=== PATIENT | male | born 1925 | race Caucasian/White ===

== ENCOUNTER → 2016-06-30 | Outpatient (CLI) | payer OTHER | LOC: GIMAGING 11:42 | PROVIDERS: ATTEND Family Medicine | DX: J96.10 Chronic respiratory failure, unspecified whether with hypoxia or hypercapnia (principal); R05 Cough | CPT/HCPCS: 71020-PO ==

== ENCOUNTER 2016-07-03 07:26 | Inpatient (IN) | payer OTHER ==
[2016-07-03] MEDS ORDERED: IPRATROPIUM/ALBUTEROL 3 ML DEYVIAL IH ONE (07:32)
--- NOTE | 2016-07-03 07:35 | EDPHY ---
H & P Time Seen by Provider: 07/03/16 07:28 HPI/ROS: Chief complaint. Shortness of breath HPI. 89-year-old male here by EMS with shortness of breath that has been gradually worsening over the past several days. He has a history of COPD. He was recently diagnosed with pneumonia. He is on erythromycin. He has had worsening shortness of breath. EMS found the patient to have a room air saturation of 82%. He received an albuterol nebulizer treatment and IV Solu- Medrol. He arrives on oxygen and continues to have respiratory difficulty. He has accessary muscle use ROS Constitutional. no fever/chills, no weakness Eyes. no problems with vision ENT. no sore throat, no nasal drainage Cardiovascular. no chest pain Respiratory. Shortness of breath Abdominal. no abdominal pain, no nausea/vomiting, no diarrhea . no problems urinating MS. no calf pain/swelling, no neck/back pain, no joint pain Skin. no rash Lymph. no swollen glands Neuro. no headache, no dizziness, no difficulty walking or with speech Past Medical/Surgical History: COPD, CHF Social History: Single, nonsmoker, no alcohol Smoking Status: Former smoker Physical Exam: General Appearance: Alert well-developed male moderate to severe respiratory distress. Vital signs are stable Eyes: Pupils equal and round no pallor or injection. ENT, Mouth: Mucous membranes are moist. Respiratory: There are retractions. Patient has rales and rhonchi to upper chest on both sides. Cardiovascular: Regular rate and rhythm. Gastrointestinal: Abdomen is soft and nontender, no masses, bowel sounds normal. Neurological: Awake and alert, sensory and motor exams grossly normal. Skin: Warm and dry, no rashes. Musculoskeletal: Neck is supple nontender. Extremities symmetrical, full range of motion. Psychiatric: Patient appears to have somewhat decreased mental status Constitutional: Initial Vital Signs Heart Rate 122 H 07/03/16 07:34 Respiratory Rate 34 H 07/03/16 07:34 O2 Sat (%) 90 L 07/03/16 07:34 O2 Delivery Mode Bi-Pap Allergies/Adverse Reactions: No Known Allergies Allergy (Verified 10/02/15 18:49) Home Medications: Medication Instructions Recorded Furosemide [Lasix 20 MG (*)] 20 mg PO DAILY #30 tab 02/24/16 Albuterol [Proventil Inhaler HFA 1 - 2 puffs IH Q4H PRN 07/03/16 (*)] Azithromycin [Zithromax] 250 mg PO DAILY 07/03/16 Nebivolol HCl [Bystolic] 10 mg PO DAILY 07/03/16 predniSONE 5 mg PO DAILY 07/03/16 Medical Decision Making - Diagnostics EKG Interpretation: EKG interpreted by me shows sinus tachycardia with first-degree AV block right bundle-branch block and left posterior fascicular block. Diffuse ST depression especially in the inferior leads but no significant ST elevation. Rate is 121 Imaging: Chest x-ray shows bilateral pneumonia, congestive heart failure Procedures: IV normal saline, monitor. Respiratory therapy is called and the patient is placed on BiPAP. Patient is given an in-line DuoNeb. ED Course/Re-evaluation: 7:45 a.m. patient's initial lactate is 4.6. Severe sepsis is declared now. The patient presumably has a pulmonary infection as the etiology. Appropriate labs are ordered. The patient is given 1 L of saline but not more fluids as he is somewhat hypertensive and he has a history of CHF 30 second cardiac arrest. Patient bradycardia down. Lost pulses. 30 seconds of CPR with regaining of spontaneous circulation. Patient would like to be intubated and fully resuscitated. Nitroglycerin drip and Lasix IV. Intravenous Levaquin Consultation discussion with Dr. Briones, hospitalist, who agrees to the admission. I have asked Dr. Briones to see this patient AP. Bed request is placed for ICU. Continuing episodes of bradycardia down into the 30s and 40s with poorly perfusing rhythm and then spontaneously returns. Atropine is at bedside. Patient is moved to major resuscitation area. BiPAP is continued. His pulse ox gradually comes up. He had initially been mottled after his cardiac arrest and this gradually clears. Heart rate comes down. Differential Diagnosis: Likely the patient has pneumonia. He does have severe sepsis by blood work. It also appears the patient has congestive heart failure. He had episode of progressive bradycardia to asystole that resolved with about 30 seconds of CPR. He has significant hypoxemia and work of breathing that is improving with the BiPAP Critical Care Time: Critical care time exclusive procedures 50 minutes - Data Points Laboratory Results: Laboratory Results 07/03/16 07:30 07/03/16 07:30 07/03/16 07/03/16 07/03/16 07:40 07:30 07:30 WBC RBC Hgb Hct MCV MCH MCHC RDW Plt Count MPV Neut % (Auto) Lymph % (Auto) [place] % (Auto) Eos % (Auto) Baso % (Auto) Nucleat RBC Rel Count Absolute Neuts (auto) Absolute Lymphs (auto) Absolute Monos (auto) Absolute Eos (auto) Absolute Basos (auto) Absolute Nucleated RBC Immature Gran % Immature Gran # PT 13.0 SEC SEC (12.0-15.0) INR 0.99 (0.83-1.16) APTT 30.2 SEC SEC (23.0-38.0) VBG Lactic Acid 3.8 mmol/L H mmol/L (0.7-2.1) Sodium 145 mEq/L H mEq/L (134-144) Potassium 4.8 mEq/L mEq/L (3.5-5.2) Chloride 106 mEq/L mEq/L (97-110) Carbon Dioxide 26 mEq/l mEq/l (22-31) Anion Gap 13 mEq/L mEq/L (8-16) BUN 43 mg/dL H mg/dL (7-23) Creatinine 1.7 mg/dL H mg/dL (0.7-1.3) Estimated GFR 38 Glucose 176 mg/dL H mg/dL (70-100) Calcium 8.8 mg/dL mg/dL (8.5-10.4) Total Bilirubin 0.8 mg/dL mg/dL (0.1-1.4) Troponin I 0.040 ng/mL H ng/mL (0-0.034) NT-Pro-B Natriuret Pep 4540 pg/mL H pg/mL (0-450) 07/03/16 07/03/16 07:30 07:30 WBC 12.03 10^3/uL H 10^3/uL (3.80-9.50) RBC 5.36 10^6/uL 10^6/uL (4.40-6.38) Hgb 16.0 g/dL g/dL (13.7-17.5) Hct 50.4 % % (40.0-51.0) MCV 94.0 fL fL (81.5-99.8) MCH 29.9 pg pg (27.9-34.1) MCHC 31.7 g/dL L g/dL (32.4-36.7) RDW 15.2 % % (11.5-15.2) Plt Count 235 10^3/uL 10^3/uL (150-400) MPV 10.6 fL fL (8.7-11.7) Neut % (Auto) 31.5 % L % (39.3-74.2) Lymph % (Auto) 55.5 % H % (15.0-45.0) [place] % (Auto) 9.8 % % (4.5-13.0) Eos % (Auto) 1.6 % % (0.6-7.6) Baso % (Auto) 0.3 % % (0.3-1.7) Nucleat RBC Rel Count 0.0 % % (0.0-0.2) Absolute Neuts (auto) 3.78 10^3/uL 10^3/uL (1.70-6.50) Absolute Lymphs (auto) 6.68 10^3/uL H 10^3/uL (1.00-3.00) Absolute Monos (auto) 1.18 10^3/uL H 10^3/uL (0.30-0.80) Absolute Eos (auto) 0.19 10^3/uL 10^3/uL (0.03-0.40) Absolute Basos (auto) 0.04 10^3/uL 10^3/uL (0.02-0.10) Absolute Nucleated RBC 0.00 10^3/uL 10^3/uL (0-0.01) Immature Gran % 1.3 % H % (0.0-1.1) Immature Gran # 0.16 10^3/uL H 10^3/uL (0.00-0.10) PT INR APTT VBG Lactic Acid 4.6 mmol/L H mmol/L (0.7-2.1) Sodium Potassium Chloride Carbon Dioxide Anion Gap BUN Creatinine Estimated GFR Glucose Calcium Total Bilirubin Troponin I NT-Pro-B Natriuret Pep Medications Given: Discontinued Medications Albuterol/Ipratropium (Duoneb) 3 ml IH EDNOW ONE Stop: 07/03/16 07:33 Last Admin: 07/03/16 07:41 Dose: 3 ml Furosemide (Lasix Injection) 20 mg IVP EDNOW ONE Stop: 07/03/16 08:13 Last Admin: 07/03/16 08:15 Dose: 20 mg Sodium Chloride (Ns) 1,000 mls @ 0 mls/hr IV ONCE ONE PRN Reason: Wide Open Stop: 07/03/16 07:47 Last Admin: 07/03/16 07:40 Dose: 1,000 mls Levofloxacin/Dextrose (Levaquin 750 Mg (Premix)) 150 mls @ 100 mls/hr IV EDNOW ONE PRN Reason: Protocol Stop: 07/03/16 09:32 Last Admin: 07/03/16 08:18 Dose: 150 mls Nitroglycerin/Dextrose (Nitroglycerin 200 Mcg/Ml (Premix)) 250 mls @ 0 mls/hr IV CONT ERVIN; Titrate PRN Reason: Protocol Stop: 12/30/16 08:29 Last Admin: 07/03/16 08:00 Dose: 250 mls Sodium Chloride (Ns) 1,000 mls @ 200 mls/hr IV CONT ERVIN Stop: 07/03/16 14:14 Last Admin: 07/03/16 11:03 Dose: 1,000 mls Departure - Departure Disposition: [facility] Inpatient Acute Clinical Impression: Cardiac arrest Pneumonia Qualifiers: Pneumonia type: due to unspecified organism Laterality: bilateral Lung location : lower lobe of lung Qualified Code(s): J18.9 - Pneumonia, unspecified organism Acute respiratory failure Qualifiers: Respiratory failure complication: hypoxia and hypercapnia Qualified Code(s): J96.01 - Acute respiratory failure with hypoxia; J96.02 - Acute respiratory failure with hypercapnia Condition: Fair
--- NOTE | 2016-07-03 07:39 | CPEKG ---
Heart Rate: 121 RR Interval: 496 P-R Interval: 296 QRSD Interval: 158 QT Interval: 400 QTC Interval: 568 P [place]: 0 QRS [place]: 117 T Wave [place]: -24 EKG Severity - ABNORMAL ECG - EKG Impression: SINUS TACHYCARDIA EKG Impression: FIRST DEGREE AV BLOCK EKG Impression: PROMINENT P WAVES, NONDIAGNOSTIC EKG Impression: RBBB AND LPFB EKG Impression: ST DEPRESSION, CONSIDER ISCHEMIA, INF LEADS Electronically Signed By: Tip Ye 03-Jul-2016 15:20:26
[2016-07-03 07:45] LABS: % IMMATURE GRANULYOCYTES 1.3 % (0.0-1.1); ABSOLUTE IMMATURE GRANULOCYTES 0.16 10^3/uL (0.00-0.10); ADD DIFF? NO; ADD MORPH? NO; ADD SCAN? NO; ATYPICAL LYMPHOCYTE FLAG 30 (0-99); FRAGMENT RBC FLAG 0 (0-99); HEMATOCRIT 50.4 % (40.0-51.0); LEFT SHIFT FLG 10 (0-99); LIPEMIA HEMOLYSIS FLAG 80 (0-99); MEAN CELL HEMOGLOBIN 29.9 pg (27.9-34.1); MEAN CELL HEMOGLOBIN CONCENTR. 31.7 g/dL (32.4-36.7); MEAN PLATELET VOLUME 10.6 fL (8.7-11.7); PLATELET CLUMPS FLAG 0 (0-99); PLATELET COUNT 235 10^3/uL (150-400); RED BLOOD CELL COUNT 5.36 10^6/uL (4.40-6.38); RED CELL DISTRIBUTION WIDTH 15.2 % (11.5-15.2)
[2016-07-03] MEDS ORDERED: NS 1,000 ML IV ONE (07:46)
[2016-07-03] MEDS ORDERED: NITROGLYCERIN/D5W 50 MG/250 ML BOTTLE IV ONE (07:57)
[2016-07-03 07:59] LABS: INR 0.99 (0.83-1.16)
[2016-07-03] MEDS ORDERED: ATROPINE SULFATE 1 MG/10 ML SYR ONE ×2 (08:10→19:24)
[2016-07-03] MEDS ORDERED: FUROSEMIDE 20 MG/2 ML VIAL ONE (08:11)
[2016-07-03 08:12] LABS: ANION GAP 13 mEq/L (8-16); BILIRUBIN,TOTAL 0.8 mg/dL (0.1-1.4); CALCIUM 8.8 mg/dL (8.5-10.4); CARBON DIOXIDE 26 mEq/l (22-31); CHLORIDE 106 mEq/L (97-110); CREATININE 1.7 mg/dL (0.7-1.3); GLOMERULAR FILTRATION RATE 38; GLUCOSE 176 mg/dL (70-100); POTASSIUM 4.8 mEq/L (3.5-5.2); SODIUM 145 mEq/L (134-144)
[2016-07-03] MEDS ORDERED: FUROSEMIDE 40 MG/4 ML VIAL IVP ONE (08:12)
[2016-07-03 08:20] LABS: APTT 30.2 SEC (23.0-38.0)
[2016-07-03] MEDS ORDERED: NITROGLYCERIN/DEXTROSE 250 ML IV SCH (08:30)
[2016-07-03 09:11] LABS: BICARBONATE 21 mEq/L (22-26); MEASURED OXYGEN SATURATION 98 % (92-95); PCO2 45 mmHg (34-38); PO2 131 mmHg (65-75); TCO2 22 mEq/L (23-27)
[2016-07-03 09:12] LABS: BIPAP YES; EXP PRESSURE 6; I-TIME 0.6 SECS; INSP PRESSURE 14; O2 CONCENTRATIION 100 % (0-100); P/F RATIO 131 RATIO; PIP 15; PRESSURE SUPPORT 8
[2016-07-03] MEDS ORDERED: HYDROmorphONE/DILAUDID 1 MG/ML SYR IVP PRN (09:12)
[2016-07-03] MEDS ORDERED: ONDANSETRON DISINTEGRATING 4 MG TAB PO PRN (09:12)
[2016-07-03] MEDS ORDERED: ONDANSETRON 4 MG/2 ML VIAL IVP PRN (09:12)
[2016-07-03] MEDS ORDERED: NS 1,000 ML IV SCH ×2 (09:15→15:15)
[2016-07-03] MEDS ORDERED: ALBUTEROL 60 PUFFS/8 GM MDI IH PRN (09:46)
--- NOTE | 2016-07-03 10:37 | GHP ---
[f rep st] HISTORY AND PHYSICAL DATE OF ADMISSION: 07/03/2016 HISTORY OF PRESENT ILLNESS: The patient is an 89-year-old gentleman with a history of COPD, who is steroid and oxygen dependent, as well as asbestosis, who presents with increased work of breathing and shortness of breath, that became acutely worse this morning. It sounds like he has recently been being treated for pneumonia as an outpatient with azithromycin. He denies fever, chills, cough, sputum. It is not clear that he got a flu shot this year. He denies chest pain. He does not have PND, orthopnea or lower extremity edema. In the emergency department, he presented, and initial chest x-ray showed bilateral consolidation superimposed upon known inferior pulmonary fibrosis and asbestosis, with pleural scarring. He actually became bradycardic and asystolic , and CPR was initiated about 15 seconds later and he received less than 30 seconds of CPR with spontaneous return of circulation. When I speak with the patient, he is alert, he is not encephalopathic. He is on bilevel, speaking through it, claiming that he feels better than when he arrived. It does sound like he has not had nausea, vomiting or diarrhea of late. REVIEW OF SYSTEMS: A complete 10-point review of systems conducted and negative except as noted in the HPI. PAST MEDICAL HISTORY: 1. Asbestosis. 2. Steroid and oxygen-dependent COPD. 3. Hypertension. 4. Possible recent pneumonia. 5. History of pleural effusion with cytology negative for malignancy. 6. Known right bundle branch block and left posterior fascicular block. ALLERGIES: No known drug allergies. HOME MEDICATIONS: Azithromycin, Bystolic, Lasix 20 mg, albuterol, prednisone 5 mg daily. SOCIAL HISTORY: He lives alone. He quit smoking remotely. Drinks rare alcohol. No recent falls. FAMILY HISTORY: Parents . CODE STATUS: He is full code. PHYSICAL EXAM: VITAL SIGNS: Presenting vitals: Afebrile at 36.5, blood pressure 193/123, pulse 110, breathing 34 times a minute, 99% on bilevel. Blood pressure now 107/70. In the emergency department he received Lasix and IV fluids, as well as levofloxacin and a nitro drip. GENERAL: In no acute distress. Increased work of breathing. HEENT: Sclerae anicteric. Oropharynx clear. Mucous membranes are dry. NECK: Supple without lymphadenopathy. There is elevated JVD. LUNGS: Rhonchorous bilaterally. HEART: S1, S2 without murmurs. ABDOMEN: Soft, nontender, nondistended. LOWER EXTREMITIES: Without edema. Calves are nontender. SKIN: Without rash. NEUROLOGIC: Grossly nonfocal. Patient is alert. LABS: Sodium 145, potassium 4.8, chloride 106, bicarb 26, BUN 43, creatinine 1.7, I think his baseline is about 1.3. Glucose 176. Troponin 0.040. BNP is 4540, for reference sake, his only previous BNP in January of 2016 is 16,600. He has had an indeterminate troponin before. Venous lactate 4.6 on presentation , and then it was subsequently,thereafter, it was 3.8. His ABG: PH is 7.3, pCO2 is 45, pO2 was 131, bicarb is 22. White count 12.03, hematocrit 50, platelets are 235,000. Coags are normal. Influenza is pending. Chest x-ray, interpreted by vt, shows increased bilateral airspace disease. There is fluid in the fissures, this is superimposed upon pleural disease, and known inferior scarring. The radiology read feels this is most suggestive of viral pneumonitis versus CHF. EKG, interpreted by vt, shows sinus tach at 121, with right bundle branch block and left posterior fascicular block. There is diffuse ST depression in the inferior leads. The left posterior fascicular block and right bundle branch block are not new. I discussed the case with Tip Ye of the emergency department. ASSESSMENT/PLAN: An 89-year-old gentleman with known pulmonary disease, presents with acute hypoxemic respiratory failure of uncertain etiology. 1. Respiratory failure. Patient has chronic respiratory failure and he has superimposed acute hypoxemic respiratory failure. His ABG actually looks pretty good, but he had been on bilevel when that was taken. 2. Despite his elevated BNP and the chest x-ray being read as congestive heart failure, I think the patient is actually clinically dry and we will treat this as pneumonia. I have started him on cefepime and doxycycline. He has received azithromycin as an outpatient, levofloxacin in the emergency department. 3. I do acknowledge his JVD, however, I think the patient has viral pneumonitis versus bacterial pneumonia. He is full code. At this point in time , he is tolerating CPAP well. 4. Cardiac. The patient has as an indeterminate troponin. I have ordered an echocardiogram. His EKG is difficult to interpret, but I have ordered a repeat EKG. We will trend his troponins, and if this echo has new findings, we will have Cardiology see him. I suspect his elevated troponin is due to strain.. 5. Acute kidney injury. This is consistent with being prerenal. We will resuscitate and follow. 6. Steroid use. The patient takes 5 mg daily. He is at risk for adrenal insufficiency. He is currently not hypotensive. I will give him Solu-Medrol 60 q.6. 7. Drop in blood pressure. This corresponds to a nitroglycerin drip, which I will discontinue. 8. Prophylaxis. Pharmacologic prophylaxis indicated, subcu heparin t.i.d. 9. Asbestosis, we will follow. 10. Code status: Full. 11. Disposition: Inpatient ICU. /[id number]/MODL MTDD
[2016-07-03] MEDS: CEFEPIME HCL 1 GM in D5W 50 ML IV SCH ×2 (11:03→22:03)
[2016-07-03] MEDS: methylPREDNISolone SOD SUCC 125 MG/2 ML VIAL IVP SCH ×3 (11:32→23:55)
--- NOTE | 2016-07-03 12:30 | CPEKG ---
Heart Rate: 71 RR Interval: 845 P-R Interval: 156 QRSD Interval: 146 QT Interval: 444 QTC Interval: 483 P [place]: 51 QRS [place]: 111 T Wave [place]: 238 EKG Severity - ABNORMAL ECG - EKG Impression: SINUS ARRHYTHMIA, RATE 60-85 EKG Impression: PROBABLE LEFT ATRIAL ABNORMALITY EKG Impression: NONSPECIFIC INTRAVENTRICULAR CONDUCTION DELAY EKG Impression: BORDERLINE INFERIOR Q WAVES EKG Impression: ABNRM R PROG, CONSIDER ASMI OR LEAD PLACEMENT EKG Impression: BORDERLINE ST DEPRESSION, DIFFUSE LEADS EKG Impression: COMPARED WITH PRIOR TRACING, HR SLOWER Electronically Signed By: Yessica Kirk 03-Jul-2016 20:09:24
--- NOTE | 2016-07-03 12:38 | ECHO ---
[id number] + + [address] : : [place] [address] : : [phone] + + Adult Echocardiographic Report + -+ :Name: MEGHANA LOPEZ VStudy Date: 07/03/2016 10:55 AM : : Hospital Admission Number: [id number] : :: 1925 Gender: Male Height: 70 in : :Age: 89 yrs Race: WH Weight: 150 lb : :Reason For Study: Asystole, now back in sinus. CHF : : BSA: 1.8 meters 2: :History: SCHMITZ : + -+ MMode/2D Measurements \T\ Calculations IVSd: 1.3 cm LVIDd: 4.6 cm FS: 30.0 % LVOT diam: 2.0 cm LVPWd: 1.2 cm LVIDs: 3.2 cm EDV(Teich): LVOT area: 99.0 ml 3.3 cm2 ESV(Teich): 42.4 ml EF(Teich): 57.2 % LVLd ap4: 6.9 cm SV(MOD-sp4): EDV(MOD-sp4): 45.0 ml 82.0 ml LVLs ap4: 6.2 cm ESV(MOD-sp4): 37.0 ml EF(MOD-sp4): 54.9 % Normal Measurement Values: + + :LVIDd (3.5-5.7cm) IVSd (0.6-1.1cm) LVPWd (0.6-1.1cm) Aortic Root (2.0-3.7cm)Left Atrium (1.5-4.0cm): :LV Vol(d) (76-115ml) LV Vol(s) (29-48ml) Ejec Fraction (50-65%)PV Jose Angel (0.6- 1.2m/s) TV Jose Angel (0.4-1.0m/s) : :MV E Jose Angel (0.8-1.0m/s)MV A Jose Angel (0.3-1.0m/s)LVOT Jose Angel (0.7-1.2m/s) Asc Ao Jose Angel ( 0.9-1.8m/s) : + + Doppler Measurements \T\ Calculations MV E max jose angel: Ao V2 max: LV V1 max: SV(LVOT): 52.3 cm/sec 86.0 cm/sec 69.6 cm/sec 47.2 ml MV A max jose angel: Ao max P.0 mmHg LV V1 max P.0 cm/sec Ao mean P.9 mmHg MV E/A: 0.46 1.8 mmHg LV V1 mean PG: MV dec time: 0.24 sec Ao V2 mean: 1.1 mmHg 64.6 cm/sec LV V1 mean: Ao V2 VTI: 18.0 cm 48.2 cm/sec HARRIS(I,D): 2.6 cm2 LV V1 VTI: 14.4 cm HARRIS(V,D): 2.6 cm2 PA V2 max: 62.8 cm/secRAP systole: PA max P.6 mmHg 10.0 mmHg Left Ventricle The left ventricle is normal in size. There is mild concentric left ventricular hypertrophy. Ejection Fraction = 50-55%. There is Doppler evidence for diastolic dysfunction. Possible apical hypokinesis. Septal motion is consistent with conduction abnormality. There is apical hypokinesis. + ---------+ : : :I WMSI = 1.25 % Normal = 75 : + + + ---------+ :+ +:+ ++ +: : :: ::: :: :: : :: ::: :: :: : :: ::: :: :: : :: ::: :: :: : :: ::: :: :: : :: ::: :: :: : :: ::+ ++ +: : :: ::+ ++ +: : :: ::: :: :: : :: ::: :: :: : :: ::: :: :: : :: ::: :: :: : :: ::: :: :: : :: ::: :: :: : :+ +:+ ++ +: : + + ---------+ : : : : : Segments Size : : :+--------+ --------+: :X - Cannot 0 - 1 - Normal (2) - Mildly 2 - ::1-2 : small :: :Interpret Hyperkinetic Hypokinetic Hypokinetic :+--------+ --------+: : 4 - 5 - 6 - Akinetic 7 - ::3-5 : moderate:: :3 - Akinetic Dyskinetic Aneurysmal w/scar Dyskinetic :+--------+ --------+: : w/scar ::6-14 : large :: : :+--------+ --------+: : ::15-16 : diffuse :: : :+--------+ --------+: + + ---------+ Right Ventricle The right ventricle is normal in size and function. TAPSE norrmal: 2.5. Atria The left atrial size is normal. Right atrial size is normal. The interatrial septum is intact with no evidence for an atrial septal defect. Mitral Valve The mitral valve is normal in structure and function. There is no mitral valve stenosis. There is trace mitral regurgitation. Tricuspid Valve The tricuspid valve is normal in structure and function. There is no tricuspid stenosis. No tricuspid regurgitation. Right ventricular systolic pressure is normal. Aortic Valve The aortic valve is not well visualized. There is no aortic stenosis. There is no aortic insufficiency. Pulmonic Valve The pulmonic valve is not well visualized. Great Vessels The aortic root is normal size. Pericardium/Pleural There is no pericardial effusion. There is no pleural effusion. Conclusion A complete two-dimensional transthoracic echocardiogram was performed (2D, M-mode, Doppler and color flow Doppler). The study was technically difficult. Limited parasternal windows. The left ventricle is normal in size. Ejection Fraction = 50-55%. Possible apical anterior hypokinesis There is trace mitral regurgitation. Right ventricular systolic pressure is normal. The aortic valve is not well visualized. There is mild concentric left ventricular hypertrophy. There is Doppler evidence for diastolic dysfunction. There is no pleural effusion. There is apical hypokinesis. Final Reading Physician: Neto Rojas electronically signed on 07/03/2016 12:37 PM Ordering Physician: Abdias Briones Performed By: Zulema Lopes
[2016-07-03 13:17] LABS: COLOR YELLOW; LEUKOCYTE ESTERASE,URINE NEGATIVE (NEGATIVE); NITRITE,URINE NEGATIVE (NEGATIVE)
[2016-07-03 13:27] LABS: MUCUS TRACE /lpf (NONE-1+)
[2016-07-03] MEDS ORDERED: HEPARIN 5,000 UNIT/0.5 ML SYR SC SCH (14:00)
[2016-07-03 14:41] LABS: ANION GAP 12 mEq/L (8-16); CALCIUM 8.2 mg/dL (8.5-10.4); CARBON DIOXIDE 25 mEq/l (22-31); CHLORIDE 108 mEq/L (97-110); CREATININE 1.8 mg/dL (0.7-1.3); GLOMERULAR FILTRATION RATE 36; GLUCOSE 122 mg/dL (70-100); POTASSIUM 4.7 mEq/L (3.5-5.2); SODIUM 145 mEq/L (134-144)
[2016-07-03] MEDS ORDERED: NS 500 ML IV ONE (16:30)
[2016-07-03] MEDS ORDERED: NITROGLYCERIN 0.4 MG BTL SL PRN (17:20)
[2016-07-03] MEDS ORDERED: TEMAZEPAM 15 MG CAP PO PRN (17:20)
--- NOTE | 2016-07-03 17:58 | GCON ---
[f rep st] CONSULTATION PULMONARY CONSULTATION DATE OF CONSULTATION: 07/03/2016 REASON FOR CONSULTATION: Acute respiratory failure in a patient with underlying asbestosis and COPD . HISTORY: The patient is an 89-year-old gentleman with a known history of asbestosis and COPD. 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 He also worked briefly at [employer], but was not exposed to asbestos there. He was la st in the hospital in January of 2016. He was seen in consultation by Dr. Lovell, who has known him previously from the hospital. He had congestive heart failure at that time, and required a large-v olume thoracentesis on the right. Following discharge, he did well, and felt better than he has had for some time. He is readmitted now with increasing shortness of breath over the last 5 days. This has been associ ated with increased cough and pulmonary congestion. He has been able to bring up some mucus. He wa s seen by his primary care physician several days ago, and placed on azithromycin. He initially did somewhat better, but then subsequently worsened. He called 911 today secondary to the sensation of severe shortness of breath. Saturations were 82%. He does use oxygen continually at 4 L. In the emergency department, he became bradycardic, and had a brief cardiac arrest, apparently requiring ca rdiac compressions. He was given fluids, nitroglycerin, Lasix, and intravenous Levaquin, and transf erred to the intensive care unit. He was also given antibiotics for probable pneumonia. Chest x-ra y does show worsening, with increased bilateral patchy pulmonary infiltrates consistent with a possi ble diffuse pneumonia versus congestive heart failure/pulmonary edema or both. In the ICU, he states he feels better, his breathing is better. He denies any chest pain currently. He does have persistent congestion. 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 He also has a component of COPD secondary to previous tobacco use. 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 He generally uses this at 4 L, more with exertional activities. Based on his p revious hospitalization, he is felt to have congestive heart failure. He has presumed coronary derek ry disease, based on apical akinesis by echo, and coronary artery calcification by previous CT scan of the chest. PAST MEDICAL HISTORY: Remarkable for asbestosis, COPD, systemic hypertension, presumed congestive h eart failure/coronary artery disease, and a history of gout. MEDICATIONS: On admission included prednisone at 5 mg, albuterol, furosemide, azithromycin, and Bys tolic. He has previously been on Flovent and Flonase. DRUG ALLERGIES: None known. SOCIAL HISTORY: The patient lives independently. He drives, takes care of himself. He has a son a nd a daughter, who live in this area. He has a nurse, who comes in every other week. He smoked cig arettes in the past, starting in the [employer]. Significant alcohol is denied. FAMILY HISTORY: Noncontributory. REVIEW OF SYSTEMS: Negative, except as mentioned above. He denies current chest pain, history of k nown heart disease, GI problems, kidney problems, thromboembolic disease, etc. PHYSICAL EXAMINATION: GENERAL: Reveals an elderly gentleman who is sitting in bed. VITAL SIGNS: An OxyMask is in place at 6 L. Saturations are 93%. He is afebrile. Respiratory rate is 24. Bloo d pressure is 147/71. Heart rate is 76, with sinus rhythm on the monitor. HEENT: Unremarkable for lymphadenopathy or thyromegaly. Mucous membranes are somewhat dry. There is no jugular venous dis tention. PULMONARY: The chest reveals decreased breath sounds bilaterally, especially at the right base. There is some dullness at the right base. There is some scattered rales elsewhere, and cent ral bronchial congestion, with some expiratory wheezes and mild rhonchi with cough. HEART: Regular in rate and rhythm. There is a systolic murmur. No gallop can be appreciated. ABDOMEN: Soft, no ntender. Bowel sounds are present. EXTREMITIES: Unremarkable for significant edema. There are no cords, no tenderness. NEUROLOGIC: Examination is nonfocal/intact. LABORATORY DATA: Chest x-ray shows chronic changes, hyperinflation, as well as increased infiltrate s bilaterally, which are indeterminate in their etiology. Query acute congestive heart failure vers us an infectious process/diffuse pneumonia. Cardiac echo done today appears to be unchanged from previous echos. Ejection fraction remains at a pproximately 50%, with some diastolic dysfunction. There are no significant valvular abnormalities. Right ventricular systolic pressures are normal. White blood cell count is 12,000, hematocrit 50, platelets 235,000. PT and PTT were normal on admis roly. Arterial blood gas possibly post arrest showed a pH of 7.30, pCO2 45, and PO2 131. He was on BiPAP at that time. Sodium is 145, potassium 4.7, BUN 45, with a creatinine of 1.8. Baseline crea tinine is 1.3. Troponins have bumped significantly, from 0.04 on admission to 34 now. Urinalysis i s unremarkable. Influenza A, B by PCR is negative. ASSESSMENT: 1. Chronic obstructive pulmonary disease with exacerbation, secondary to bronchopneumonia. 2. Bronchopneumonia. His pulmonary infiltrates are difficult to sort out. However, they may be re lated to pneumonia. He does have a clear bronchitis, which has been increasing in symptomatology ov er the last five days. He is on appropriate antibiotics. Nebulized treatments will be continued. He has been started on steroids. These will also be continued for now. 3. History congestive heart failure. This was associated with pleural effusions. He was sent home on Lasix after his last admission. He does appear to have coronary artery disease, but has never h ad a catheterization. At the present time, troponins are significantly elevated, and he had a brief cardiac arrest in the emergency department. His elevated troponins may be secondary to his CPR. C ardiology consultation has been requested. 4. Acute renal failure. He has had elevated BUN and creatinine in the past to as high as 1.7. He is slightly higher today. BUN and creatinine will be followed. There are no indications for Renal consultation or hemodialysis. 5. History of fibrotic lung disease associated with asbestosis. 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 Spirometry has shown significant restrictio n, as well as obstructive disease in the past. However, lung volumes have looked fairly normal. DL CO was reduced. 6. Status post arrest in the emergency room, with brief cardiopulmonary resuscitation. This was ap parently secondary to a bradycardic event. Etiology is unclear. 7. Advanced directives. He is full cor, per his wishes. PLAN: The patient will be kept in the intensive care unit. Bronchodilator therapy and steroids vidal l be continued. Antibiotics will be continued. Cardiac status will be followed, and serial troponi ns obtained. Cardiology consultation has been requested, and he will be seen by Cardiology today. Oxygen will be continued. Lasix will be held for now, as he is clinically euvolemic. His usual out patient medications will be continued. Further plans and recommendations will be made based on his progress over the next 12-24 hours. Car diac catheterization may be required; however, I will leave this up to Cardiology. /[id number]/MODL
[2016-07-03] MEDS ORDERED: LIDOCAINE 1% 30 ML SDV ONE (18:16)
[2016-07-03] MEDS ORDERED: fentaNYL 100 MCG/2 ML INJ ONE (18:16)
[2016-07-03] MEDS ORDERED: MIDAZOLAM 2 MG/2 ML VIAL ONE (18:17)
[2016-07-03] MEDS ORDERED: IOPAMIDOL (ISOVUE-300) 100 ML BTL IV ONE (18:21)
[2016-07-03] MEDS ORDERED: BIVALIRUDIN 250 MG/5 ML VIAL IV ONE (19:03)
[2016-07-03] MEDS ORDERED: CLOPIDOGREL BISULFATE 75 MG TAB ONE (20:23)
[2016-07-03] MEDS ORDERED: ATROPINE SULFATE 1 MG/10 ML SYR IVP PRN (20:30)
[2016-07-03] MEDS ORDERED: CLOPIDOGREL BISULFATE 75 MG TAB PO ONE (20:30)
[2016-07-03] MEDS: IPRATROPIUM/ALBUTEROL 3 ML DEYVIAL IH SCH (21:11)
[2016-07-03] MEDS ORDERED: amLODIPine BESYLATE 5 MG TAB PO ONE (21:30)
--- NOTE | 2016-07-03 21:58 | CPIP ---
[f rep st] INVASIVE CARDIAC PROCEDURE DATE OF PROCEDURE: 07/03/2016 PROCEDURE PERFORMED: 1. Selective coronary angiography. 2. Left heart catheterization. 3. Percutaneous transluminal coronary angioplasty and stent placement of a total occlusion of the r ight coronary artery with a proximal to mid 2.5 x 38 Synergy drug-eluting stent and a distal 3.0 x 1 6 Synergy drug-eluting stent. Overlapping with those 2 stents was a 3.0 x 24 Synergy drug-eluting s tent. Then in the proximal and ostial right coronary artery, we cuffed of the right coronary for an edge dissection with a 3.0 x 28 Synergy stent, with excellent and CRISTIANE-3 flow from a status of CRISTIANE -0 flow at the beginning of the case. INDICATIONS/APPROPRIATE USE CRITERIA: The patient has a subendocardial myocardial infarction with r ising troponin from a level of 9 to in the 30s and then 61. On serial measurements throughout the d ay, there was also an asystolic arrest earlier with severe and symptomatic bradycardia, with hypoten roly documented with a pulseless arrest earlier in the emergency department today. The patient has CCS class 4 symptoms of angina, as well as [place] Heart Association class 4 symptoms of heart fail ure. The patient is not a candidate for surgery given his age and severe asbestosis-related lung di sease. PROCEDURE IN DETAIL: After informed consent was obtained and the n.p.o. status was confirmed, the xenia vega was taken to the cardiac catheterization laboratory. The region of the right groin was clean ed, prepped, and draped in a sterile fashion. A micropuncture set was used to gain access to the [facility] common femoral artery. There was difficulty in advancing a standard J-wire and therefore, a J G lidewire was used to navigate the severely diseased junction with the right common iliac and right e xternal iliac. Also evidence of severe and complex atheroma involving the origin of the right inter nal iliac as well. Standard wire exchange technique was utilized for all catheter exchanges. The xenia vega underwent the previously mentioned diagnostic procedure with use of JL4 and Alphacurve hull ry catheters, as well as with a 6-Armenian JR4 guiding catheter. The left main coronary lumen was chapito roximately 7 mm in size and has an ostial 70% stenosis which is a napkin ring, concentric lesion pro ximal to the LAD and circumflex bifurcation. The circumflex vessel was a 3.0 vessel with CIRSTIANE-3 jennifer w and a 60% lesion after the first obtuse marginal. This could be a flow-limiting obstruction in th e circumflex proper if appropriately IVUS'd. The LAD has a napkin ring stenosis shortly after its takeoff from the left main, which is estimated to be 85% to 90%. The LAD thereafter has an eccentric and calcified lesion which is 70% to 80% sten osed. The distal LAD wraps around the apex moderately, without other flow-limiting obstruction, dis section, or thrombus. There is evidence of [id number] collaterals to the distal PDA and PLV branches of the right coron yoana artery. The right coronary artery is occluded after the first RV branch with CRISTIANE-0 flow. We turned our att ention to the right coronary artery. The distal occlusion appeared to be a fresh thrombus. We were able to cross the chronic total occlusion as well as the fresh thrombus with the use of ultimately a De Icer Element Winder 150 wire. Balloon angioplasty was then performed with a 1.2 x 15 Emerge balloon. Multiple balloon inflations were performed in order to achieve some antegrade flow. We used a series of larg er balloons to open the vessel and then exchanged out for a wiggle wire. I was able to manipulate a 2.5 x 38 Synergy stent in the proximal and mid RCA, and then deployed that at high pressure of 16 a tmospheres. Balloon angioplasty was used distally which resulted in a distal dissection of the bloo d vessel near the chronic total occlusion and the fresh thrombus, which was treated with a 3.0 x 16 Synergy stent. Then in an overlapping fashion, a 30 x 24 Synergy stent was placed inside the 2.5 x 38 and 3.0 x 16 stents covering that intervening segment. The Smish system was used to post-dilate th e stents. There was evidence of edge dissection from the GuideLiner which was used to get this equi pment into the coronary, and this was ultimately stented with a 3.0 x 28 stent in the ostial RCA and into the distal RCA. The ultimate result of the 4 stents placed in the RCA was that there was CRISTIANE -3 flow into the distal PDA and PLV branches with 5% residual stenosis, status post PTCA and stent p lacement of those 100% lesions. The patient then underwent left heart catheterization with the use of JR4 guiding catheter. Documented LVEDP of 19. There was no evidence of a gradient upon pullback across aortic valve. We did not perform an LV-gram to reduce contrast load. The patient did recei ve a substantial contrast load in order to treat his subendocardial myocardial infarction. The jose cruz ent returned to the ICU in critical and stable condition after a successful Angio-Seal arteriotomy r epair and deployment. Copy requested to: Kashmir Zhong In, /[id number]/MODL
[2016-07-03] MEDS: DOXYCYCLINE INJ 100 MG in NS 250 ML IV SCH (22:03)
[2016-07-03] MEDS: ENOXAPARIN 60 MG/0.6 ML SYR SC SCH (22:03)
[2016-07-04] MEDS: ACETAMINOPHEN 325 MG TAB PO PRN ×2 (01:12→23:01)
[2016-07-04] MEDS ORDERED: FUROSEMIDE 40 MG/4 ML VIAL IVP ONE ×2 (01:36→13:09)
[2016-07-04] MEDS ORDERED: FUROSEMIDE 40 MG/4 ML VIAL ONE (01:53)
[2016-07-04] MEDS: IPRATROPIUM/ALBUTEROL 3 ML DEYVIAL IH SCH ×4 (05:38→21:47)
[2016-07-04 05:58] LABS: % IMMATURE GRANULYOCYTES 2.7 % (0.0-1.1); ABSOLUTE IMMATURE GRANULOCYTES 0.15 10^3/uL (0.00-0.10); ADD DIFF? NO; ADD MORPH? NO; ADD SCAN? NO; ATYPICAL LYMPHOCYTE FLAG 50 (0-99); FRAGMENT RBC FLAG 0 (0-99); HEMATOCRIT 38.8 % (40.0-51.0); HEMOGLOBIN 12.6 g/dL (13.7-17.5); LEFT SHIFT FLG 30 (0-99); LIPEMIA HEMOLYSIS FLAG 80 (0-99); MEAN CELL HEMOGLOBIN 29.1 pg (27.9-34.1); MEAN CELL HEMOGLOBIN CONCENTR. 32.5 g/dL (32.4-36.7); MEAN CELL VOLUME 89.6 fL (81.5-99.8); MEAN PLATELET VOLUME 10.1 fL (8.7-11.7); PLATELET CLUMPS FLAG 0 (0-99); PLATELET COUNT 158 10^3/uL (150-400); RED BLOOD CELL COUNT 4.33 10^6/uL (4.40-6.38); RED CELL DISTRIBUTION WIDTH 14.9 % (11.5-15.2)
[2016-07-04] MEDS ORDERED: ASPIRIN EC 325 MG TAB PO ONE (06:00)
[2016-07-04] MEDS ORDERED: diphenhydrAMINE 25 MG CAP PO ONE (06:00)
[2016-07-04] MEDS ORDERED: DIAZEPAM 5 MG TAB PO ONE (06:00)
[2016-07-04] MEDS ORDERED: NS 1,000 ML IV ONE (06:00)
[2016-07-04 06:09] LABS: ANION GAP 10 mEq/L (8-16); ASPARTATE AMINOTRANSFERASE 199 IU/L (17-59); BILIRUBIN,TOTAL 0.6 mg/dL (0.1-1.4); CALCIUM 7.7 mg/dL (8.5-10.4); CARBON DIOXIDE 20 mEq/l (22-31); CHLORIDE 112 mEq/L (97-110); CHOLESTEROL 161 mg/dL (140-220); CHOLESTEROL/HDL RATIO 3.58 RATIO (1.00-4.97); CREATININE 1.5 mg/dL (0.7-1.3); GLOMERULAR FILTRATION RATE 44; GLUCOSE 137 mg/dL (70-100); HIGH DENSITY LIPOPROTEIN 45 mg/dL (40-65); LACTATE DEHYDROGENASE 1335 IU/L (313-618); LDL/HDL RATIO 2.09 RATIO (1.00-3.64); LOW DENSITY LIPOPROTEIN 94 mg/dL (80-100); MAGNESIUM 1.8 mg/dL (1.6-2.3); NON-HIGH DENSITY LIPOPROTEIN 116 mg/dL (90-129); POTASSIUM 4.6 mEq/L (3.5-5.2); SODIUM 142 mEq/L (134-144); TRIGLYCERIDE 113 mg/dL (40-150); VERY LOW DENSITY LIPOPROTEINS 22 mg/dL (8-25)
[2016-07-04 06:11] LABS: INR 1.24 (0.83-1.16); PROTIME(PATIENT) 15.6 SEC (12.0-15.0)
[2016-07-04 06:12] LABS: APTT 64.6 SEC (23.0-38.0)
[2016-07-04] MEDS: methylPREDNISolone SOD SUCC 125 MG/2 ML VIAL IVP SCH (06:27)
[2016-07-04] MEDS: DOXYCYCLINE INJ 100 MG in NS 250 ML IV SCH (08:13)
[2016-07-04] MEDS: ENOXAPARIN 60 MG/0.6 ML SYR SC SCH ×2 (08:13→23:01)
[2016-07-04] MEDS: CLOPIDOGREL BISULFATE 75 MG TAB PO SCH (08:13)
[2016-07-04] MEDS: CEFEPIME HCL 1 GM in D5W 50 ML IV SCH (08:13)
[2016-07-04] MEDS: predniSONE 5 MG TAB PO SCH (08:13)
[2016-07-04] MEDS: NEBIVOLOL HCL 5 MG TAB PO SCH (08:13)
--- NOTE | 2016-07-04 08:50 | CPEKG ---
Heart Rate: 81 RR Interval: 741 P-R Interval: 172 QRSD Interval: 142 QT Interval: 444 QTC Interval: 516 P [place]: 56 QRS [place]: 97 T Wave [place]: 252 EKG Severity - ABNORMAL ECG - EKG Impression: SINUS RHYTHM EKG Impression: PROBABLE LEFT ATRIAL ABNORMALITY EKG Impression: RBBB AND LPFB EKG Impression: ST DEPRESSION, CONSIDER ISCHEMIA, ANT-LAT LDS Electronically Signed By: Konstantin Barrow 05-Jul-2016 16:26:41
[2016-07-04] MEDS ORDERED: NON-FORMULARY NEW DRUG (Nebivolol Hcl [Bystolic] 10 MG) PO SCH (09:00)
--- NOTE | 2016-07-04 09:15 | HOSPPROG ---
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 initial trop indfet but fly rapidly and cath revealed sig CAD w totally occluded rca CV: s/p cath w trop tredning down ekg w new deep twi that arent really in RCA territory on asa, plavix, bb received some lasix overnight likely NSTEMI ?HCAP: I feel primary cardiac event more likely dc abx and steroids (continue baseline pred) chf: intact LVEF on yest AM echo will repeat in AM 07/05 this is likely acute diastolic failure proph: lmwh ? VTE: neg ultrasounds presentation explained by cardiac event code: full asbestosis: continue pred dispo: inpt Subjective: tele: no VT (interp by me). case discussed at length w dr chapman. ekg w new anterolat TWI (interp by me) Objective: Vital Signs Temp Pulse Resp BP Pulse Ox 36.7 C 73 16 120/47 L 99 07/04/16 04:00 07/04/16 08:00 07/04/16 08:00 07/04/16 08:00 07/04/16 08:00 Laboratory Results 07/04/16 05:24 07/04/16 05:24 07/03/16 07/04/16 07/05/16 05:59 05:59 05:59 Intake Total 3724 Output Total 2195 Balance 1529 PT 15.6 SEC (12.0-15.0) H 07/04/16 05:24 INR 1.24 (0.83-1.16) H 07/04/16 05:24 - Physical Exam Constitutional: no apparent distress, appears nourished, other (more alert than yesterday) Eyes: PERRL, anicteric sclera Ears, Nose, Mouth, Throat: moist mucous membranes, hearing normal Cardiovascular: regular rate and rhythym, no murmur, rub, or gallop, No systolic murmur Respiratory: no respiratory distress, no rales or rhonchi, other (very abnormal lung axam w crackles at inferior base o lungs b/l) Gastrointestinal: normoactive bowel sounds, soft, non-tender abdomen Genitourinary: No sarabia in urethra Skin: warm, normal color Musculoskeletal: full muscle strength, no muscle tenderness Neurologic: AAOx3 ICD10 Worksheet Patient Problems: Problems Problem Status Onset Acute respiratory failure Acute Cardiac arrest Acute Pneumonia Acute COPD (chronic obstructive pulmonary disease) Acute Chronic Disease Mgmt/Transitional Care Acute Hypoxemia Acute Shortness of breath Acute
--- NOTE | 2016-07-04 15:13 | SOAPPROG ---
SOAP Progress Note Assessment/Plan: Assessment: 1. Acute myocardial infarction 2. Status post PTCI: Right coronary artery x4 stents. 3. Severe coronary artery disease 4. Dyslipidemia 5. Asbestosis 6 acute renal failure 7 diastolic dysfunction 8. COPD 9. Smoking history 10. Bronchopneumonia 11. asbestosis He has had an acute myocardial infarction he has had his right coronary stented he had an asystolic event requiring cardiopulmonary resuscitation in the emergency room. At this point time he is not having Ant arrhythmias. He is not having any chest pain. He is currently improving slowly. Has diffuse severe left and right-sided coronary artery disease and the left- sided coronary disease has not been addressed at this point time. The members of the interventional service are considering when or if they would recommend further intervention on the left side. We are waiting for their decision on this. The patient is clinically very stable right now. He is moving from the ICU to the telemetry floor. He is not having congestive heart failure today. He is not fluid overloaded today. He is not having ischemia today. He is having no arrhythmias. He has severe advanced pulmonary disease from on many factors and that is being managed by the Pulmonary service very well. The patient has severe dyslipidemia and will be getting a statin as well as ongoing antiplatelet medications. I have talked to he and his family about code status and he would like to not be resuscitated. We went over this extensively for more than 20 minutes on multiple occasions and all their questions have been answered. At this point time we will make him a no code. The daughter and the son and patient all agree with this. There is another stated sibling coming to visit. If they have any issues with this they will get back to me. Also I have talked him about where he has good replaced after leaving the hospital and I strongly recommend that he not go home alone in to [facility] which is what he would like to do I think he needs some time in a rehab stay institution to see how he is doing and to see how his strength is coming back and make sure he is not going to fall or have more complications. He is on ongoing oxygen therapy and the remainder the pulmonary issues are being addressed by Pulmonary as mentioned above. His prognosis is certainly guarded. We will watch him closely. All his questions have been answered I have discussed this case with the curer acid drum and with the nursing staff. Plan: 03/13/17 15:06 Subjective: He has no chest pain today. He has no fevers or chills. He has no syncope or near syncope. He feels weak and tired. He is not short of breath. He has no nausea vomiting He is taking his medication He is not bleeding. His groin and is legs do not bother him at all. Objective: Vital Signs Temp Pulse Resp BP Pulse Ox 36.8 C 76 25 H 170/79 H 97 07/04/16 12:00 07/04/16 12:00 07/04/16 12:00 07/04/16 12:00 07/04/16 12:00 Laboratory Results 07/04/16 05:24 07/04/16 05:24 07/03/16 07/04/16 07/05/16 05:59 05:59 05:59 Intake Total 3724 Output Total 2195 1000 Balance 1529 -1000 PT 15.6 SEC (12.0-15.0) H 07/04/16 05:24 INR 1.24 (0.83-1.16) H 07/04/16 05:24 Physical Exam - Physical Exam General Appearance: alert, no apparent distress Respiratory: crackles, rhonchi, prolonged expiration Cardiac/Chest: regular rate, rhythm, systolic murmur Abdomen: normal bowel sounds, non-tender, No organomegaly Back: No CVA tenderness Skin: warm/dry Extremities: No pedal edema, No calf tenderness (Do all) Neuro/Psych: alert ICD10 Worksheet Patient Problems: Problems Problem Status Onset Acute respiratory failure Acute Cardiac arrest Acute Pneumonia Acute COPD (chronic obstructive pulmonary disease) Acute Chronic Disease Mgmt/Transitional Care Acute Hypoxemia Acute Shortness of breath Acute
[2016-07-04] MEDS: ISOSORBIDE DINITRATE 10 MG TAB PO SCH (16:06)
[2016-07-04] MEDS ORDERED: TEMAZEPAM 15 MG CAP PO ONE (23:00)
[2016-07-05 04:27] LABS: % IMMATURE GRANULYOCYTES 2.8 % (0.0-1.1); ABSOLUTE IMMATURE GRANULOCYTES 0.29 10^3/uL (0.00-0.10); ADD DIFF? NO; ADD MORPH? NO; ADD SCAN? NO; ATYPICAL LYMPHOCYTE FLAG 30 (0-99); FRAGMENT RBC FLAG 0 (0-99); HEMATOCRIT 33.9 % (40.0-51.0); HEMOGLOBIN 11.2 g/dL (13.7-17.5); LEFT SHIFT FLG 20 (0-99); LIPEMIA HEMOLYSIS FLAG 80 (0-99); MEAN CELL HEMOGLOBIN 28.6 pg (27.9-34.1); MEAN CELL VOLUME 86.7 fL (81.5-99.8); MEAN PLATELET VOLUME 10.3 fL (8.7-11.7); PLATELET CLUMPS FLAG 0 (0-99); PLATELET COUNT 189 10^3/uL (150-400); RED BLOOD CELL COUNT 3.91 10^6/uL (4.40-6.38); RED CELL DISTRIBUTION WIDTH 15.1 % (11.5-15.2)
[2016-07-05 04:41] LABS: ANION GAP 10 mEq/L (8-16); CALCIUM 8.4 mg/dL (8.5-10.4); CARBON DIOXIDE 22 mEq/l (22-31); CHLORIDE 111 mEq/L (97-110); CREATININE 1.8 mg/dL (0.7-1.3); GLOMERULAR FILTRATION RATE 36; GLUCOSE 118 mg/dL (70-100); POTASSIUM 4.2 mEq/L (3.5-5.2); SODIUM 143 mEq/L (134-144)
[2016-07-05] MEDS: IPRATROPIUM/ALBUTEROL 3 ML DEYVIAL IH SCH ×4 (06:02→21:02)
[2016-07-05] MEDS: ISOSORBIDE DINITRATE 10 MG TAB PO SCH ×3 (08:23→16:11)
[2016-07-05] MEDS: NEBIVOLOL HCL 5 MG TAB PO SCH (10:25)
[2016-07-05] MEDS: ENOXAPARIN 60 MG/0.6 ML SYR SC SCH ×2 (10:25→20:35)
[2016-07-05] MEDS: CLOPIDOGREL BISULFATE 75 MG TAB PO SCH (10:25)
--- NOTE | 2016-07-05 11:25 | ECHO ---
[id number] + + [address] : : [place] [address] : : [phone] + + Adult Echocardiographic Report + ------+ :Name: MEGHANA LOPEZ VStudy Date: 07/05/2016 09:35 AM BP: 140/66 mmHg : : Hospital Admission Number: [id number] [facility]: [facility]: :: 1925 Gender: Male : :Age: 89 yrs Race: WH : :History: nstemi : + ------+ MMode/2D Measurements \T\ Calculations IVSd: 0.99 cm LVIDd: 4.6 cm FS: 31.6 % LVAd ap4: 37.3 cm2 LVPWd: 1.2 cm LVIDs: 3.2 cm EDV(Teich): LVLd ap4: 8.4 cm 98.1 ml EDV(MOD-sp4): ESV(Teich): 142.1 ml 39.7 ml EDV(sp4-el): EF(Teich): 59.6 % 140.1 ml LVAs ap4: 24.9 cm2 LVLs ap4: 7.6 cm ESV(MOD-sp4): 71.9 ml ESV(sp4-el): 69.8 ml EF(MOD-sp4): 49.4 % EF(sp4-el): 50.2 % SV(MOD-sp4): SV(sp4-el): 70.1 ml 70.3 ml Normal Measurement Values: + + :LVIDd (3.5-5.7cm) IVSd (0.6-1.1cm) LVPWd (0.6-1.1cm) Aortic Root (2.0-3.7cm)Left Atrium (1.5-4.0cm): :LV Vol(d) (76-115ml) LV Vol(s) (29-48ml) Ejec Fraction (50-65%)PV Jose Angel (0.6- 1.2m/s) TV Jose Angel (0.4-1.0m/s) : :MV E Jose Angel (0.8-1.0m/s)MV A Jose Angel (0.3-1.0m/s)LVOT Jose Angel (0.7-1.2m/s) Asc Ao Jose Angel ( 0.9-1.8m/s) : + + Left Ventricle The left ventricle is normal in size. Left ventricular systolic function is borderline reduced. Ejection Fraction = 48%. Mild anterior and anterolateral hypokinesis and mild inferolateral hypokinesis. Conclusion Left ventricular systolic function is borderline reduced. Ejection Fraction = 48%. Mild anterior and anterolateral hypokinesis and mild inferolateral hypokinesis. Final Reading Physician: Silvano Zepeda signed on 07/05/2016 11:23 AM Ordering Physician: Abdias Briones
--- NOTE | 2016-07-05 14:53 | GCON ---
[f rep st] CONSULTATION DATE OF CONSULTATION: 07/05/2016 The patient is seen at the request of Dr. Kelsey with the patient's permission. IMPRESSION: 1. Severe three-vessel disease, including left main, proximal LAD, proximal circ, and subtotal righ t coronary artery recently opened with a stent with preserved LV function. 2. Severe end-stage lung disease. RECOMMENDATIONS: I would not offer this gentleman coronary artery revascularization electively or e mergently. Although his coronary anatomy is suitable for grafting, I do believe his pulmonary funct ion is prohibitive for any sort of meaningful recovery. At best, he would end up with prolonged lamin tilation, likely a tracheostomy and extended care in a long-term care facility with little likelihoo d of resuming normal functional independent living, which is his desire. The patient's son was pres ent and both agreed and appreciated our discussion. CHIEF COMPLAINT: This gentleman presented with respiratory distress, was taken to the cardiac cath rn and found to have occlusion of his right coronary artery, which was small but opened. He was also noted to have severe left main and severe three-vessel disease with well-preserved LV function. Chest x- ray suggested congestive heart failure on chronic interstitial and asbestosis lung disease as well a s COPD. MEDICAL HISTORY: As per the chart. REVIEW OF SYSTEMS: Not elicited. PHYSICAL EXAMINATION: GENERAL: Reveals a very pleasant, alert elderly gentleman in bed, who is pete te motivated to improve but limited by dyspnea. CARDIOVASCULAR: Heart rate is regular with a systo lic murmur across the precordium. LUNGS: Diminished. ABDOMEN: Scaphoid. EXTREMITIES: Without e velma or cyanosis. Cath was reviewed as was a CT scan and outpatient pulmonary function studies. /[id number]/MODL
--- NOTE | 2016-07-05 14:59 | SOAPPROG ---
SOAP Progress Note Assessment/Plan: Assessment: 1. Acute myocardial infarction 2. Status post PTCI: Right coronary artery x4 stents. 3. Severe coronary artery disease 4. Dyslipidemia 5. Asbestosis 6 acute renal failure 7 diastolic dysfunction 8. COPD 9. Smoking history 10. Bronchopneumonia 11. asbestosis ff. Plan: 07/04/16 15:06 07/05/16 14:52 1. Acute myocardial infarction Status post PTCI right coronary artery 3. Severe diffuse coronary disease 4. Dyslipidemia 5. Ischemic cardiomyopathy 6. Asbestosis 7. Acute renal failure 8. Diastolic dysfunction 9. COPD 11. Bronchopneumonia 12. Asbestosis. He is resting comfortably today. He has very severe diffuse left coronary artery disease. Disease disease involved the left main coronary and its branches. I have had the cardiovascular surgical service review his films and I have talked to them specifically about the patient is a candidate for bypass surgery. It is our opinion that the patient's pulmonary status would not need able him to do well with surgery. They would like to not offer surgery to him at this time. I think this is very reasonable. there is an option to do PTCI. Another option is to continue with medical therapy. We will present his case at cath conference tomorrow morning and get the consensus of the group. He is not having angina. He is not having heart failure at this point. The very best thing to do might be to try to get him stronger and not do anything on the left side at this time. Obviously there is a risk of sudden cardiac myocardial infarction of further deterioration and I have talked to his son Christo about that and his daughter is well today. And they understand this. Patient himself told me he would like to have anything done we can do to help him and that would include surgery if that were not option. It is quite clear to me that he would do a percutaneous approach and revascularization if we thought that was in his best interest. Certainly want to give him all the options and let him decide what he would like to do. For medical therapy we want him on his beta-karo his DAMI-inhibitor and statin and anti plat meds. all options discussed w he, his daughter and son bettina- the patient wants us to do whatever will help him. Subjective: He is not having chest pain today He is not having shortness of breath He is sitting up in feeling reasonably well. He has no orthopnea PND or dyspnea on exertion. He does not have nausea or vomiting. He does feel Objective: Vital Signs Temp Pulse Resp BP Pulse Ox 36.6 C 75 22 H 135/64 H 99 07/05/16 12:00 07/05/16 12:00 07/05/16 12:00 07/05/16 12:00 07/05/16 12:00 Laboratory Results 07/05/16 04:16 07/05/16 04:16 07/04/16 07/05/16 07/06/16 05:59 05:59 05:59 Intake Total 3724 400 Output Total 2195 1600 100 Balance 1529 -1200 -100 PT 15.6 SEC (12.0-15.0) H 07/04/16 05:24 INR 1.24 (0.83-1.16) H 07/04/16 05:24 Physical Exam - Physical Exam General Appearance: alert, no apparent distress Neck: supple Respiratory: decreased breath sounds, rhonchi, prolonged expiration Cardiac/Chest: regular rate, rhythm, systolic murmur, No edema Abdomen: normal bowel sounds, non-tender, soft, No organomegaly, No pulsatile mass Skin: warm/dry Neuro/Psych: alert, normal mood/affect ICD10 Worksheet Patient Problems: Problems Problem Status Onset Acute respiratory failure Acute Cardiac arrest Acute Pneumonia Acute COPD (chronic obstructive pulmonary disease) Acute Chronic Disease Mgmt/Transitional Care Acute Hypoxemia Acute Shortness of breath Acute
--- NOTE | 2016-07-05 17:59 | HOSPPROG ---
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 initial trop indfet but fly rapidly and cath revealed sig CAD w totally occluded rca ACS: s/p cath w trop trending down ekg w new deep twi that arent really in RCA territory on asa, plavix, bb s/p stent x 4 to RCA but with significant residual disease awaiting consult with CT surgery cardiac arrest: in setting of above as well as underlying chronic respiratory failure leading to asystole in ER chf: acute systolic chf with EF of 48 % on repeat echo, largely compensated, combined diastolic hf acute on chronic hypoxic respiratory failure: with asbestos related pleural plaques and copd presenting with worsened respiratory status in setting of acs/ cardiac arrest. CXR personaly reviewed showing bilateral pulmonary infiltrates and pleural effusions. Possible component of bronchopnuemonia though no clear e/ o infection. Monitoring off of abx for now but low threshold to begin again as difficult to exclude pna. proph: lmwh ? VTE: neg ultrasounds presentation explained by cardiac event code: full asbestosis: continue pred DNR IP status, high risk presenting issue Patient new to my care. Old records reviewed and summarized as above. Care plan reviewed with cardiology. Further hx obtained from dahlia family present at bedside. Subjective: patient feelign poorly today, fatigued, no appetite, short of breath Objective: Vital Signs Temp Pulse Resp BP Pulse Ox 36 C 75 22 H 155/76 H 100 07/05/16 16:00 07/05/16 16:00 07/05/16 16:00 07/05/16 16:00 07/05/16 16:00 Laboratory Results 07/05/16 04:16 07/05/16 04:16 07/04/16 07/05/16 07/06/16 05:59 05:59 05:59 Intake Total 3724 400 Output Total 2195 1600 100 Balance 1529 -1200 -100 PT 15.6 SEC (12.0-15.0) H 07/04/16 05:24 INR 1.24 (0.83-1.16) H 07/04/16 05:24 chronically ill apeearing, nad anciteric op clear, jvd elevated rrr systolic murumur dec bs throughout with scattered rales soft nt nd trace ble edema warm dry well perfused oriented appropriate ICD10 Worksheet Patient Problems: Problems Problem Status Onset Acute respiratory failure Acute Cardiac arrest Acute Pneumonia Acute COPD (chronic obstructive pulmonary disease) Acute Chronic Disease Mgmt/Transitional Care Acute Hypoxemia Acute Shortness of breath Acute
[2016-07-06 05:15] LABS: ADD DIFF? YES; ADD MORPH? NO; ADD SCAN? NO; ATYPICAL LYMPHOCYTE FLAG 30 (0-99); FRAGMENT RBC FLAG 0 (0-99); HEMATOCRIT 35.3 % (40.0-51.0); HEMOGLOBIN 11.6 g/dL (13.7-17.5); LEFT SHIFT FLG 50 (0-99); LIPEMIA HEMOLYSIS FLAG 80 (0-99); MEAN CELL HEMOGLOBIN 29.4 pg (27.9-34.1); MEAN CELL HEMOGLOBIN CONCENTR. 32.9 g/dL (32.4-36.7); MEAN CELL VOLUME 89.6 fL (81.5-99.8); MEAN PLATELET VOLUME 10.7 fL (8.7-11.7); PLATELET CLUMPS FLAG 0 (0-99); PLATELET COUNT 218 10^3/uL (150-400); RED BLOOD CELL COUNT 3.94 10^6/uL (4.40-6.38); RED CELL DISTRIBUTION WIDTH 15.1 % (11.5-15.2)
[2016-07-06] MEDS: IPRATROPIUM/ALBUTEROL 3 ML DEYVIAL IH SCH ×4 (05:52→21:05)
[2016-07-06 06:11] LABS: PLATELET ESTIMATE ADEQUATE (ADEQ)
[2016-07-06] MEDS: ISOSORBIDE DINITRATE 10 MG TAB PO SCH ×3 (07:33→16:08)
[2016-07-06] MEDS: ENOXAPARIN 60 MG/0.6 ML SYR SC SCH ×2 (09:28→21:46)
[2016-07-06] MEDS: CLOPIDOGREL BISULFATE 75 MG TAB PO SCH (09:29)
[2016-07-06] MEDS: ATORVASTATIN CALCIUM 40 MG TAB PO SCH (09:29)
[2016-07-06] MEDS: NEBIVOLOL HCL 5 MG TAB PO SCH (09:29)
--- NOTE | 2016-07-06 10:31 | SOAPPROG ---
SOAP Progress Note Assessment/Plan: Assessment: 1. Acute myocardial infarction 2. Status post PTCI: Right coronary artery x4 stents. 3. Severe coronary artery disease 4. Dyslipidemia 5. Asbestosis 6 acute renal failure 7 diastolic dysfunction 8. COPD 9. Smoking history 10. Bronchopneumonia 11. asbestosis ff. Plan: 07/04/16 15:06 07/05/16 14:52 1. Acute myocardial infarction Status post PTCI right coronary artery 3. Severe diffuse coronary disease 4. Dyslipidemia 5. Ischemic cardiomyopathy 6. Asbestosis 7. Acute renal failure 8. Diastolic dysfunction 9. COPD 11. Bronchopneumonia 12. Asbestosis. 07/06/16 10:24 1. Coronary artery disease 2. Acute myocardial infarction 3. Status post PTCA right coronary artery 4. Dyslipidemia 5. Ischemic cardiomyopathy 6. Asbestosis 7. COPD 8. Asbestosis He is not having any new shortness of breath. He is not having chest pain He has not had chest pain throughout his hospital course. He is moving from ICU to PCU. He is taking his medications and doing well with those. He has no increased reactive airway disease. He is on good medical therapy right this minute. He had bleeding last night from his right groin which is still soft. We will watch him for further bleeding. He has no issues with heart failure. He is not having any coronary complaints right now. Yesterday I discussed his case with the cardiac surgery service. All these they visited him yesterday and decided that he was not a candidate for open coronary artery bypass grafting at this time. Certainly agree with that. I think the pulmonary complications would make it very high risk surgery. I again reviewed that with cardiac surgery today and we both agree. We have reviewed his case a cath conference and the interventional service agrees that he is not a good candidate for elective interventions on his left coronary disease. I have discussed this with him and with his son today and they both agree with medical management at this time. Obviously he is at high risk for future events. He is accepting of this situation and of these recommendations. He will feel better when his bleeding stops in the groin. All his questions have been answered. Subjective: He is not having any chest pain. He is not having any shortness of breath. He slept well last night. He has not been sleeping well. He has been quite tired He has no nausea or vomiting. He is not lightheaded or dizzy. He is not having a PND. He has no significant increase in edema. Objective: Vital Signs Temp Pulse Resp BP Pulse Ox 36.5 C 68 18 154/65 H 92 07/06/16 07:37 07/06/16 07:37 07/06/16 07:37 07/06/16 07:37 07/06/16 07:37 Laboratory Results 07/06/16 04:49 07/05/16 04:16 07/05/16 07/06/16 07/07/16 05:59 05:59 05:59 Intake Total 400 600 Output Total 1600 1075 Balance -1200 -475 PT 15.6 SEC (12.0-15.0) H 07/04/16 05:24 INR 1.24 (0.83-1.16) H 07/04/16 05:24 Sure Physical Exam - Physical Exam General Appearance: alert, no apparent distress Respiratory: rhonchi, prolonged expiration, No retractions, No splinting Cardiac/Chest: regular rate, rhythm, systolic murmur, No edema Abdomen: normal bowel sounds, non-tender, soft, No organomegaly Skin: warm/dry Extremities: non-tender Neuro/Psych: alert, normal mood/affect (Log) ICD10 Worksheet Patient Problems: Problems Problem Status Onset Acute respiratory failure Acute Cardiac arrest Acute Pneumonia Acute COPD (chronic obstructive pulmonary disease) Acute Chronic Disease Mgmt/Transitional Care Acute Hypoxemia Acute Shortness of breath Acute
--- NOTE | 2016-07-06 12:32 | HOSPPROG ---
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 initial trop indfet but fly rapidly and cath revealed sig CAD w totally occluded rca # ACS: sp cath and PCI to RCA, diffuse CAD as next. Groin bled overnight but now resolved # CAD: with stents placed to RCA but significant residual disease including significant stenosis to LAD. CT surgery reviewed, poor surgical candidate. Cardiology reviewing to consider stents to left side, but sounds as if they are leaning towards medical management # acute on chronic hypoxic respiratory failure: with asbestos related pleural plaques and copd presenting with worsened respiratory status in setting of acs/ cardiac arrest/chf exacerbation. CXR personally reviewed and went over with patient and his son showing bilateral pulmonary infiltrates and pleural effusions. Repeat cxr appears improved with less pulm edema, does not appear to have a pleural effusion large enough to tap. At baseline is on 4L. # acute on chronic systolic/diastolic heart failure: with EF of 48%, does have pulmonary edema as above, on lasix chronically at home but have held here given connor. Will give IV lasix today and monitor renal function. # connor on ckd: with baseline creatinine close to 1.6-1.8 and near that currently # cardiac arrest: in setting of above as well as underlying chronic respiratory failure leading to asystole in ER # proph: lmwh # asbestosis: continue pred # deconditioning: patient quite weak, has had minimal appetite, being evaluated for likely snf placement after dc, reviewed plan with CM and patient and his son code status: DNR IP status, high risk presenting issue > 45 minutes spent in care of this patient, 30 minutes from [id number] spent in direct face to face counseling of patient and his son reviewing treatment plan and going over chest xray reports. Subjective: no significant overnight events, patient states he is currently feeling better, less fatigued etc, still very weak and has not gotten up much, groin started bleeding last night, now resolved Objective: Vital Signs Temp Pulse Resp BP Pulse Ox 36.6 C 67 20 126/61 H 95 07/06/16 12:00 07/06/16 12:00 07/06/16 12:00 07/06/16 12:00 07/06/16 12:00 Laboratory Results 07/06/16 04:49 07/05/16 04:16 07/05/16 07/06/16 07/07/16 05:59 05:59 05:59 Intake Total 400 600 Output Total 1600 1075 Balance -1200 -475 PT 15.6 SEC (12.0-15.0) H 07/04/16 05:24 INR 1.24 (0.83-1.16) H 07/04/16 05:24 chronically ill apeearing, nad anciteric op clear, jvd elevated rrr systolic murumur dec bs throughout with scattered rales soft nt nd trace ble edema warm dry well perfused oriented appropriate ICD10 Worksheet Patient Problems: Problems Problem Status Onset Acute respiratory failure Acute Cardiac arrest Acute Pneumonia Acute COPD (chronic obstructive pulmonary disease) Acute Chronic Disease Mgmt/Transitional Care Acute Hypoxemia Acute Shortness of breath Acute
[2016-07-06] MEDS: MELATONIN 3 MG TAB PO SCH (21:46)
[2016-07-07 05:16] LABS: ADD DIFF? YES; ADD MORPH? NO; ADD SCAN? NO; ATYPICAL LYMPHOCYTE FLAG 40 (0-99); FRAGMENT RBC FLAG 0 (0-99); HEMATOCRIT 33.3 % (40.0-51.0); HEMOGLOBIN 10.8 g/dL (13.7-17.5); LEFT SHIFT FLG 70 (0-99); LIPEMIA HEMOLYSIS FLAG 80 (0-99); MEAN CELL HEMOGLOBIN 29.3 pg (27.9-34.1); MEAN CELL HEMOGLOBIN CONCENTR. 32.4 g/dL (32.4-36.7); MEAN CELL VOLUME 90.5 fL (81.5-99.8); MEAN PLATELET VOLUME 10.6 fL (8.7-11.7); PLATELET CLUMPS FLAG 10 (0-99); PLATELET COUNT 190 10^3/uL (150-400); RED BLOOD CELL COUNT 3.68 10^6/uL (4.40-6.38)
[2016-07-07] MEDS: IPRATROPIUM/ALBUTEROL 3 ML DEYVIAL IH SCH ×5 (05:24→22:15)
[2016-07-07 05:31] LABS: ANION GAP 6 mEq/L (8-16); CALCIUM 8.4 mg/dL (8.5-10.4); CARBON DIOXIDE 28 mEq/l (22-31); CHLORIDE 112 mEq/L (97-110); CREATININE 1.5 mg/dL (0.7-1.3); GLOMERULAR FILTRATION RATE 44; GLUCOSE 89 mg/dL (70-100); POTASSIUM 4.3 mEq/L (3.5-5.2); SODIUM 146 mEq/L (134-144)
[2016-07-07 05:49] LABS: PLATELET ESTIMATE ADEQUATE (ADEQ)
[2016-07-07] MEDS: ISOSORBIDE DINITRATE 10 MG TAB PO SCH ×3 (08:15→15:33)
[2016-07-07] MEDS ORDERED: IPRATROPIUM BROMIDE 0.5 MG/2.5 ML DEYVIAL ONE (08:26)
[2016-07-07] MEDS: ATORVASTATIN CALCIUM 40 MG TAB PO SCH (09:42)
[2016-07-07] MEDS: NEBIVOLOL HCL 5 MG TAB PO SCH (09:42)
[2016-07-07] MEDS: CLOPIDOGREL BISULFATE 75 MG TAB PO SCH (09:43)
[2016-07-07] MEDS: ENOXAPARIN 60 MG/0.6 ML SYR SC SCH (09:43)
[2016-07-07] MEDS: ASPIRIN EC 81 MG TAB PO SCH (12:02)
--- NOTE | 2016-07-07 12:25 | SOAPPROG ---
SOAP Progress Note Assessment/Plan: Assessment: 1. Acute myocardial infarction 2. Status post PTCI: Right coronary artery x4 stents. 3. Severe coronary artery disease 4. Dyslipidemia 5. Asbestosis 6 acute renal failure 7 diastolic dysfunction 8. COPD 9. Smoking history 10. Bronchopneumonia 11. asbestosis ff. Plan: 07/04/16 15:06 07/05/16 14:52 1. Acute myocardial infarction Status post PTCI right coronary artery 3. Severe diffuse coronary disease 4. Dyslipidemia 5. Ischemic cardiomyopathy 6. Asbestosis 7. Acute renal failure 8. Diastolic dysfunction 9. COPD 11. Bronchopneumonia 12. Asbestosis. 07/06/16 10:24 1. Coronary artery disease 2. Acute myocardial infarction 3. Status post PTCA right coronary artery 4. Dyslipidemia 5. Ischemic cardiomyopathy 6. Asbestosis 7. COPD 8. Asbestosis 07/07/16 12:22 He is improving. He has no acute coronary syndrome symptoms at this time. He has no new congestive heart failure at this time. He has ongoing chronic respiratory insufficiency. He has ongoing chronic renal insufficiency. He does not appear to have any significant infectious issues right at this time. He is eager to try to move on. We have discussed this case extensively among the cardiologists and we are going to do no further invasive procedures on him. We will continue with his current medical therapy. He can follow up with Dr. Agapito Jean. He also will be in the transitional care program and follow up with The staff of the transitional care program quickly. All his questions have been answered. I have had a chest talked to the hospitalist about him and his nurse. I think it is in his best interest to move on to get out of the hospital as soon as possible. He will need ongoing care in a custodial or rehab environment and I have discussed this with him. He does like this idea but there is no way that he is going to be stable enough to just goes strictly home to live by himself again as quickly as he would like to. Subjective: He has no chest pain He has no shortness of breath He has no orthopnea PND or dyspnea on exertion. He is not exerting himself so I presume he will get short of breath with exertion. He has no fevers or chills. He is not having any neurologic complaints. He is taking his medications and not having any new troubles. Objective: Vital Signs Temp Pulse Resp BP Pulse Ox 36.7 C 73 20 162/80 H 96 07/07/16 11:57 07/07/16 11:57 07/07/16 11:57 07/07/16 11:57 07/07/16 11:57 Laboratory Results 07/07/16 04:08 07/07/16 04:08 07/06/16 07/07/16 07/08/16 05:59 05:59 05:59 Intake Total 600 750 Output Total 1075 150 125 Balance -475 600 -125 PT 15.6 SEC (12.0-15.0) H 07/04/16 05:24 INR 1.24 (0.83-1.16) H 07/04/16 05:24 Physical Exam - Physical Exam General Appearance: alert, no apparent distress Neck: supple Respiratory: rhonchi, prolonged expiration Cardiac/Chest: regular rate, rhythm, systolic murmur Abdomen: non-tender, soft, No organomegaly Skin: warm/dry (He) Extremities: non-tender, No pedal edema Neuro/Psych: alert, normal mood/affect ICD10 Worksheet Patient Problems: Problems Problem Status Onset Acute respiratory failure Acute Cardiac arrest Acute Pneumonia Acute COPD (chronic obstructive pulmonary disease) Acute Chronic Disease Mgmt/Transitional Care Acute Hypoxemia Acute Shortness of breath Acute
--- NOTE | 2016-07-07 13:55 | HOSPPROG ---
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 initial trop indfet but fly rapidly and cath revealed sig CAD w totally occluded rca # ACS: sp cath and PCI to RCA, diffuse CAD as next. Not having chest pain, continued fatigue that is likely multifactorial as below. # CAD: with stents placed to RCA but significant residual disease including significant stenosis to LAD. CT surgery reviewed, poor surgical candidate. Reviewed with cardiology and plans are to continue medical mgmt, no further intervention planned. # acute on chronic hypoxic respiratory failure: with asbestos related pleural plaques and copd presenting with worsened respiratory status in setting of acs/ cardiac arrest/chf exacerbation. Baseline O2 needs of 4L, currently at baseline # acute on chronic systolic/diastolic heart failure: with EF of 48%, does have pulmonary edema as above, resuming lasix at slightly higher dose, tolerated IV lasix yesterday # connor on ckd: with baseline creatinine close to 1.6-1.8 and has been basically at baseline, monitoring on tele # cardiac arrest: in setting of above as well as underlying chronic respiratory failure leading to asystole in ER # proph: lmwh # asbestosis: continue pred # deconditioning: patient quite weak, has had minimal appetite, being evaluated for likely snf placement after dc, reviewed plan with CM and patient and his son code status: DNR IP status, high risk presenting issue, will likely dc to SNF in am Subjective: no significant overnight events, patient remains easily fatigued but has been up in a chair for a couple of hours this afternoon, no chest pain Objective: Vital Signs Temp Pulse Resp BP Pulse Ox 36.7 C 73 20 162/80 H 96 07/07/16 11:57 07/07/16 11:57 07/07/16 11:57 07/07/16 11:57 07/07/16 11:57 Laboratory Results 07/07/16 04:08 07/07/16 04:08 07/06/16 07/07/16 07/08/16 05:59 05:59 05:59 Intake Total 600 750 Output Total 1075 150 125 Balance -475 600 -125 PT 15.6 SEC (12.0-15.0) H 07/04/16 05:24 INR 1.24 (0.83-1.16) H 07/04/16 05:24 chronically ill apeearing, nad anciteric op clear, jvd elevated rrr systolic murumur dec bs throughout with scattered rales soft nt nd trace ble edema warm dry well perfused oriented appropriate ICD10 Worksheet Patient Problems: Problems Problem Status Onset Acute respiratory failure Acute Cardiac arrest Acute Pneumonia Acute COPD (chronic obstructive pulmonary disease) Acute Chronic Disease Mgmt/Transitional Care Acute Hypoxemia Acute Shortness of breath Acute
[2016-07-07] MEDS: FUROSEMIDE 20 MG TAB PO SCH (15:33)
[2016-07-07] MEDS: MELATONIN 3 MG TAB PO SCH ×2 (22:49→23:05)
[2016-07-08] MEDS: IPRATROPIUM/ALBUTEROL 3 ML DEYVIAL IH SCH ×3 (01:27→15:28)
[2016-07-08 05:12] LABS: ADD DIFF? YES; ADD MORPH? NO; ADD SCAN? NO; ATYPICAL LYMPHOCYTE FLAG 10 (0-99); FRAGMENT RBC FLAG 0 (0-99); HEMOGLOBIN 10.5 g/dL (13.7-17.5); LEFT SHIFT FLG 70 (0-99); LIPEMIA HEMOLYSIS FLAG 80 (0-99); MEAN CELL HEMOGLOBIN 29.2 pg (27.9-34.1); MEAN CELL HEMOGLOBIN CONCENTR. 32.8 g/dL (32.4-36.7); MEAN CELL VOLUME 89.1 fL (81.5-99.8); MEAN PLATELET VOLUME 10.3 fL (8.7-11.7); PLATELET CLUMPS FLAG 0 (0-99); PLATELET COUNT 202 10^3/uL (150-400); RED BLOOD CELL COUNT 3.59 10^6/uL (4.40-6.38); RED CELL DISTRIBUTION WIDTH 14.9 % (11.5-15.2)
[2016-07-08 05:29] LABS: ANION GAP 9 mEq/L (8-16); CALCIUM 8.4 mg/dL (8.5-10.4); CARBON DIOXIDE 28 mEq/l (22-31); CHLORIDE 109 mEq/L (97-110); CREATININE 1.4 mg/dL (0.7-1.3); GLOMERULAR FILTRATION RATE 48; GLUCOSE 88 mg/dL (70-100); POTASSIUM 4.1 mEq/L (3.5-5.2); SODIUM 146 mEq/L (134-144)
[2016-07-08 06:07] LABS: LARGE PLATELETS PRESENT; PLATELET ESTIMATE ADEQUATE (ADEQ)
[2016-07-08 06:08] LABS: MICROCYTES 2+
[2016-07-08] MEDS ORDERED: ENOXAPARIN 30 MG/0.3 ML SYR SC SCH (09:00)
[2016-07-08] MEDS: NEBIVOLOL HCL 5 MG TAB PO SCH (09:14)
[2016-07-08] MEDS: ASPIRIN EC 81 MG TAB PO SCH (09:14)
[2016-07-08] MEDS: ATORVASTATIN CALCIUM 40 MG TAB PO SCH (09:14)
[2016-07-08] MEDS: ISOSORBIDE DINITRATE 10 MG TAB PO SCH ×3 (09:14→15:16)
[2016-07-08] MEDS: CLOPIDOGREL BISULFATE 75 MG TAB PO SCH (09:15)
[2016-07-08] MEDS: predniSONE 5 MG TAB PO SCH (09:15)
[2016-07-08] MEDS: FUROSEMIDE 20 MG TAB PO SCH ×2 (09:15→14:52)
[2016-07-08 12:11] VITALS: BP 164/94; PULSE 75; RESP 19; TEMP 98.1
[2016-07-08] MEDS ORDERED: predniSONE 20 MG TAB PO SCH (13:00)
--- NOTE | 2016-07-08 13:04 | ECHO ---
[id number] + + [address] : : [place] [address] : : [phone] + + Adult Echocardiographic Report + ------+ :Name: MEGHANA LOPEZ VStudy Date: 07/08/2016 11:25 AM : : Hospital Admission Number: [id number] Locatio n: 208: :: 1925 Gender: Male Height: 70 in : :Age: 89 yrs Race: WH Weight: 142 lb : :Reason For Study: Worsening SOB/eval regurg/EF/RVSP : : BSA: 1.8 meters 2 : + ------+ Left Ventricle EF estimate is 45-50%. Septal motion is consistent with conduction abnormality. LV apical septal wall is akinetic. LV basal inferior appears akinetic. Conclusion Limited 2-D echo. No decrease in EF from 3 days ago. The study was technically difficult. LV apical septal wall is akinetic. LV basal inferior appears akinetic. EF estimate is 45-50%. Final Reading Physician: Silvano Zepeda signed on 07/08/2016 01:02 PM Ordering Physician: Lucio Kelsey Performed By: Nay Torres, [facility] [[email or web address]]
--- NOTE | 2016-07-08 14:06 | PDIAF ---
- Diagnosis Code Status: Do Not Resuscitate - Medication Management Discharge Medications: Medications to Continue on Transfer Albuterol [Proventil Inhaler HFA (*)] 1 - 2 puffs IH Q4H PRN 07/03/16 [Last Taken 07/03/16] Nebivolol HCl [Bystolic] 10 mg PO DAILY 07/03/16 [Last Taken 07/02/16] predniSONE 5 mg PO DAILY 07/03/16 [Last Taken 07/02/16] Acetaminophen [Tylenol 325mg (*)] 650 mg PO Q4HRS PRN #0 tab 07/08/16 [Last Taken Unknown] Aspirin EC [Aspirin EC 81 mg (*)] 81 mg PO DAILY #0 tab 07/08/16 [Last Taken Unknown] Atorvastatin Calcium [Lipitor 40 mg (*)] 40 mg PO DAILY #0 tab 07/08/16 [Last Taken Unknown] Clopidogrel Bisulfate [Plavix (*)] 75 mg PO DAILY #0 tab 07/08/16 [Last Taken Unknown] Furosemide [Lasix 20 MG (*)] 20 mg PO BID@0900,1500 #0 tab 07/08/16 [Last Taken Unknown] Ipratropium/Albuterol [Duoneb (*)] 3 ml IH QID #0 deyvial 07/08/16 [Last Taken Unknown] Isosorbide Dinitrate [Isosorbide Dinitrate 10 mg (*)] 10 mg PO TIDNITRATE #0 tab 07/08/16 [Last Taken Unknown] Melatonin [Melatonin 3 MG (*)] 3 mg PO HS #0 tab 07/08/16 [Last Taken Unknown] Nitroglycerin [Nitrostat 0.4 mg (*)] 0.4 mg SL PRN PRN #0 btl 07/08/16 [Last Taken Unknown] Discharge Medications: Refer to the Discharge Home Medication list for PRN reason. - Orders Services needed: Registered Nurse, Certified Silviculture Professor, Physical Therapy, Occupational Therapy Diet Recommendation: cardiac -low fat low salt Weigh Patient: daily Andersen: Not applicable - Labs/Radiology BMP Date: 07/11/16 - Follow Up Care Current Providers and Referrals: Patient,NotPresent [Unknown] - As per Instructions Lucio Kelsey MD [Medical Doctor] - follow up in 2 weeks
--- NOTE | 2016-07-08 14:07 | PDDCSUM ---
Discharge Summary Discharge Summary: Dates of service 07/03-07/08/16 Discharge diagnosis: # ACS/NSTEMI # CAD # acute on chronic hypoxic respiratory failure # cardiac arrest # connor on ckd # asbestos related lung disease # chronic copd Consultations: pulmonary, cardiology, CT surgery Procedures performed: cardiac catheterization and PCI, echo x 3 Hospital course by problem: # ACS/NSTEMI: sp cath and PCI to RCA, diffuse residual CAD not amenable to surgery or further PCI on evaluation by both cardiology and CT surgery. Continued medical mgmt. # CAD: with stents placed to RCA but significant residual disease including significant stenosis to LAD. CT surgery reviewed, poor surgical candidate. Reviewed with cardiology and plans are to continue medical mgmt, no further intervention planned. # acute on chronic hypoxic respiratory failure: with chronic asbestos related pleural plaques and copd presenting and worsened respiratory status in setting of acs/cardiac arrest/chf exacerbation. Baseline O2 needs of 4L, currently at baseline. Will continue BD, low dose prednisone, lasix though on review with pulmonary this is a chronic/progressive process that is very resistant to treatment. This was discussed at length with patient and his family and they understand this. # acute on chronic systolic/diastolic heart failure: with EF of 45-50%, does have pulmonary edema as above, resuming lasix at slightly higher dose, tolerated IV lasix yesterday # connor on ckd: with baseline creatinine close to 1.6-1.8 and has been basically at baseline # cardiac arrest: in setting of above as well as underlying chronic respiratory failure leading to asystole in ER # proph: lmwh # asbestosis: continue pred, as above, reviewed with pulmonary, very little in way of treatment options # deconditioning: dc to snf for ongoing recovery code status: DNR DC to SNF Meds: see EHR > 60 minutes spent in dc of this patient, more than half in face to face counseling of patient and his family regarding f/u care plans
--- NOTE | 2016-07-08 14:09 | SOAPPROG ---
SOAP Progress Note Assessment/Plan: Assessment: 1. Acute myocardial infarction 2. Status post PTCI: Right coronary artery x4 stents. 3. Severe coronary artery disease 4. Dyslipidemia 5. Asbestosis 6 acute renal failure 7 diastolic dysfunction 8. COPD 9. Smoking history 10. Bronchopneumonia 11. asbestosis ff. Plan: 07/04/16 15:06 07/05/16 14:52 1. Acute myocardial infarction Status post PTCI right coronary artery 3. Severe diffuse coronary disease 4. Dyslipidemia 5. Ischemic cardiomyopathy 6. Asbestosis 7. Acute renal failure 8. Diastolic dysfunction 9. COPD 11. Bronchopneumonia 12. Asbestosis. 07/06/16 10:24 1. Coronary artery disease 2. Acute myocardial infarction 3. Status post PTCA right coronary artery 4. Dyslipidemia 5. Ischemic cardiomyopathy 6. Asbestosis 7. COPD 8. Asbestosis 07/07/16 12:22 07/08/2016 1. Acute myocardial infarction 2. Coronary artery disease 3. Status post PTCA right coronary artery 4. Respiratory failure 5. Asbestosis 6. COPD the patient has severe advanced coronary artery disease and the group as decided that medical therapy is the only thing we can offer him. They do not feel like he is a candidate for percutaneous intervention and the cardiac surgery service as turned him down. He is sitting in bed getting short of breath on maximal medical therapy in feeling quite uncomfortable. I think this is going to be is elizabeth and I have talked him about this at length with his son and daughter present. We spent over half are going over hospice on getting out of the hospital discharging from here today and also being aware of how sick he is going to be for the remainder of time. They understand that. He is willing to talk to hospice. I am willing to say that he qualifies for hospice on the basis of having mortality that could easily be less than 6 months. He totally understands that if he uses hospice he is agreeing to not just come to the hospital but to work with hospice and hospice doctors and try to avoid the hospital which is something he would like to do. I think that would be a good solution for him. I see the future for him being chronically ill and having a respiratory insufficiency which will be possibly quite uncomfortable. We did have a long conversation few days ago about being do not resuscitate and he agrees with that and he is very comfortable with that. I have answered all her questions. I have discussed this case with social work and with his nurse. He is going to follow up with Dr. Jean. Subjective: Has no chest pain He had worse shortness of breath today. He has no fevers or chills. He has no sputum production. He has not had any trauma. He is not lightheaded or dizzy He is not complaining of being weak. He is moving about in the room. He would like to go home today. He has no palpitations. He has no PND. He is not having orthopnea.no weight gain. Objective: Vital Signs Temp Pulse Resp BP Pulse Ox 36.7 C 75 19 164/94 H 95 07/08/16 12:06 07/08/16 12:06 07/08/16 12:06 07/08/16 12:06 07/08/16 12:06 Laboratory Results 07/08/16 03:40 07/08/16 03:40 07/07/16 07/08/16 07/09/16 05:59 05:59 05:59 Intake Total 750 800 Output Total 150 500 200 Balance 600 300 -200 PT 15.6 SEC (12.0-15.0) H 07/04/16 05:24 INR 1.24 (0.83-1.16) H 07/04/16 05:24 The things that a terribleDr. is she denies person Physical Exam - Physical Exam General Appearance: WD/WN (hanks for allowing), alert (A) Respiratory: rhonchi, prolonged expiration (At really hardly so we are and) Cardiac/Chest: regular rate, rhythm (Could maybe she suffered), systolic murmur Abdomen: non-tender, soft, No organomegaly (Good of a) Skin: warm/dry (He has) ICD10 Worksheet Patient Problems: Problems Problem Status Onset Acute respiratory failure Acute Cardiac arrest Acute Pneumonia Acute COPD (chronic obstructive pulmonary disease) Acute Chronic Disease Mgmt/Transitional Care Acute Hypoxemia Acute Shortness of breath Acute
[2016-07-08 14:37] VITALS: O2SAT 90
== END 2016-07-08 15:50 | DRG 246 ==
LOC: EDUNIT# → F2N 10:32 → F2W 07-06 08:12
PROVIDERS: ADMIT Internal Medicine; ATTEND Internal Medicine
PROC: B2151ZZ Fluoroscopy of Left Heart using Low Osmolar Contrast (ICD-10-PCS; principal; 2016-07-03)
PROC: 027036Z Dilation of Coronary Artery, One Artery with Three Drug-eluting Intraluminal Devices, Percutaneous Approach (ICD-10-PCS; principal; 2016-07-03)
PROC: 4A023N7 Measurement of Cardiac Sampling and Pressure, Left Heart, Percutaneous Approach (ICD-10-PCS; principal; 2016-07-03)
PROC: B2111ZZ Fluoroscopy of Multiple Coronary Arteries using Low Osmolar Contrast (ICD-10-PCS; principal; 2016-07-03)
PROC: 5A12012 Performance of Cardiac Output, Single, Manual (ICD-10-PCS; 2016-07-03)
DX: I21.4 Non-ST elevation (NSTEMI) myocardial infarction (principal); I25.10 Atherosclerotic heart disease of native coronary artery without angina pectoris; I25.82 Chronic total occlusion of coronary artery; I50.43 Acute on chronic combined systolic (congestive) and diastolic (congestive) heart failure; I46.9 Cardiac arrest, cause unspecified; J96.21 Acute and chronic respiratory failure with hypoxia; J18.0 Bronchopneumonia, unspecified organism; J44.9 Chronic obstructive pulmonary disease, unspecified; J61 Pneumoconiosis due to asbestos and other mineral fibers; I11.0 Hypertensive heart disease with heart failure; N17.9 Acute kidney failure, unspecified; E78.5 Hyperlipidemia, unspecified; I25.5 Ischemic cardiomyopathy; Z99.81 Dependence on supplemental oxygen; Z79.51 Long term (current) use of inhaled steroids; Z87.891 Personal history of nicotine dependence; Z79.52 Long term (current) use of systemic steroids; Z66 Do not resuscitate
CPT/HCPCS: 71020-PO; 87449-90; 96365; 97110-GP; 97116-GP; 97162-GP; 97165-GO; 97530-GO; 97535-GO; C1725; C1760; C1769; C1874; C1887; C9606; G8978-GP-CL; G8979-GP-CJ; G8987-GO-CL; G8988-GO-CJ; J0461; J0583; J0692; J1170; J1200; J1644; J1650; J1956; J2250; J3010; Q9967

== ENCOUNTER → 2016-08-04 | Outpatient (CLI) | payer OTHER | LOC: BHFA 13:45 | PROVIDERS: ATTEND Internal Medicine Cardiovascular Disease | DX: I50.9 Heart failure, unspecified (principal); I21.4 Non-ST elevation (NSTEMI) myocardial infarction; J44.9 Chronic obstructive pulmonary disease, unspecified ==

== ENCOUNTER 2016-12-06 17:11 | Emergency (ER) | payer OTHER ==
--- NOTE | 2016-12-06 18:06 | EDPHY ---
H & P Time Seen by Provider: 12/06/16 17:59 HPI/ROS: CHIEF COMPLAINT: Blood in urine HISTORY OF PRESENT ILLNESS: This patient is an anticoagulated (Plavix) 89 year old male complaining of passing blood in his urine earlier onset today. He had a similar episode several days ago. Today, he notes his urine is red with obvious clots. He denies abdominal pain, dysuria or other urinary complaints. He denies bloating, abdominal pain, or back pain. He generally feels well. No fever, chills, vomiting, or other associated symptoms. REVIEW OF SYSTEMS: A 10 point review of systems was performed and is negative with the exception of the elements mentioned in the history of present illness. Past Medical/Surgical History: COPD (4L home oxygen), Gout, Asbestosis, Cardiac disease, stents (Plavix), Hypertension Social History: Lives in [place]. . Served in the [employer]. PCP Dr. David Dalal. Smoking Status: Former smoker Physical Exam: General Appearance: Alert, pleasant Eyes: Pupils equal and round, no conjunctival pallor ENT, Mouth: Mucous membranes moist Neck: Normal inspection Respiratory: Lungs are clear to auscultation Cardiovascular: Regular rate and rhythm Gastrointestinal: Abdomen is soft and non-tender Neurological: A&O, nonfocal, normal gait Skin: Warm and dry, no rash Extremities: Nontender, no pedal edema Psychiatric: Mood and affect normal Constitutional: Initial Vital Signs Temperature (C) 36.8 C 12/06/16 17:18 Heart Rate 76 12/06/16 17:18 Respiratory Rate 20 12/06/16 17:18 Blood Pressure 163/73 H 12/06/16 17:18 O2 Sat (%) 90 L 12/06/16 17:18 O2 Delivery Mode Room Air O2 (L/minute) 2 Allergies/Adverse Reactions: No Known Allergies Allergy (Verified 12/06/16 17:16) Home Medications: Medication Instructions Recorded Albuterol [Proventil Inhaler HFA 1 - 2 puffs IH Q4H PRN 07/03/16 (*)] Nebivolol HCl [Bystolic] 10 mg PO DAILY 07/03/16 predniSONE 5 mg PO DAILY 07/03/16 Acetaminophen [Tylenol 325mg (*)] 650 mg PO Q4HRS PRN #0 tab 07/08/16 Aspirin EC [Aspirin EC 81 mg (*)] 81 mg PO DAILY #0 tab 07/08/16 Atorvastatin Calcium [Lipitor 40 40 mg PO DAILY #0 tab 07/08/16 mg (*)] Clopidogrel Bisulfate [Plavix (*)] 75 mg PO DAILY #0 tab 07/08/16 Furosemide [Lasix 20 MG (*)] 20 mg PO BID@0900,1500 #0 tab 07/08/16 Ipratropium/Albuterol [Duoneb (*)] 3 ml IH QID #0 deyvial 07/08/16 Isosorbide Dinitrate [Isosorbide 10 mg PO TIDNITRATE #0 tab 07/08/16 Dinitrate 10 mg (*)] Melatonin [Melatonin 3 MG (*)] 3 mg PO HS #0 tab 07/08/16 Nitroglycerin [Nitrostat 0.4 mg 0.4 mg SL PRN PRN #0 btl 07/08/16 (*)] Ciprofloxacin [Cipro] 500 mg PO BID #20 tab 12/06/16 Medical Decision Making ED Course/Re-evaluation: 89 year old male presents with hematuria, onset today. Plan for UA. UA c/w possible urinary tract infection. Urine cx sent. Mild hematuria, Plavix/ ASA likely a contributing factor. If sx persist, will need further evaluation. Plan to discharge home in good condition with prescription for Cipro. He will follow up with urology for symptoms unresolved. Return precautions discussed. The patient is comfortable with this plan. Differential Diagnosis: includes though not limited to urinary retention, tumor, kidney stone, pyelo, coagulopathy - Data Points Medications Given: Discontinued Medications Ciprofloxacin (Cipro) 500 mg PO EDNOW ONE PRN Reason: Protocol Stop: 12/06/16 18:33 Last Admin: 12/06/16 18:37 Dose: 500 mg Departure - Departure Disposition: Home, Routine, Self-Care Clinical Impression: Urinary tract infection Qualifiers: Urinary tract infection type: acute cystitis Hematuria presence: with hematuria Qualified Code(s): N30.01 - Acute cystitis with hematuria Hematuria Qualifiers: Hematuria type: gross Qualified Code(s): R31.0 - Gross hematuria Condition: Good Instructions: Urinary Tract Infection in Men (ED), Hematuria (ED) Additional Instructions: 1. Follow up with a urologist if the blood in your urine has not resolved in the next 3-4 days. We have referred you to our urologist basket person. 2. Take your Cipro as prescribed for the next 10 days. It is important to finish your entire course of antibiotics even if you are feeling better. 3. Return to the emergency department for increased blood in urine, difficulty urinating, abdominal or back pain, fever, vomiting, or other worsening of condition. Referrals: David Dalal MD [Primary Care Provider] - As per Instructions Anthony Posey MD [Medical Doctor] - As per Instructions Prescriptions: Ciprofloxacin [Cipro] 500 mg PO BID #20 tab Report Scribed for: Camryn Hutchison Report Scribed by: Germaine Chase Date of Report: 12/06/16 Time of Report: 18:06 Physician Review and Approval Statement: 12/06/16 18:06 Portions of this note were transcribed by a medical staff coordinator. I personally performed a history, physical exam, medical decision making, and confirmed accuracy of information the transcribed note.
[2016-12-06 18:23] LABS: COLOR YELLOW; LEUKOCYTE ESTERASE,URINE NEGATIVE (NEGATIVE); NITRITE,URINE NEGATIVE (NEGATIVE)
[2016-12-06 18:27] LABS: RBC,URINE 50-182 /hpf (0-3); WBC,URINE 15-25 /hpf (0-3)
[2016-12-06] MEDS ORDERED: CIPROFLOXACIN 500 MG TAB PO ONE (18:32)
[2016-12-06 18:42] VITALS: BP 144/80; PULSE 81; RESP 16; TEMP 97.7; O2SAT 95
== END 2016-12-06 18:45 | disposition home or self-care (01) ==
DX: N30.01 Acute cystitis with hematuria (principal); J44.9 Chronic obstructive pulmonary disease, unspecified; I10 Essential (primary) hypertension; B96.89 Other specified bacterial agents as the cause of diseases classified elsewhere; Z79.82 Long term (current) use of aspirin; Z87.891 Personal history of nicotine dependence

== ENCOUNTER → 2016-12-30 | Outpatient (CLI) | payer OTHER | LOC: FIMAGING 07:17 | PROVIDERS: ATTEND Physician Assistant Medical | DX: R31.0 Gross hematuria (principal); R91.8 Other nonspecific abnormal finding of lung field; N28.1 Cyst of kidney, acquired ==

== ENCOUNTER 2017-02-02 09:49 | Inpatient (IN) | payer OTHER ==
--- NOTE | 2017-02-01 17:54 | GHP ---
[f rep st] PREOP HISTORY AND PHYSICAL ADMISSION DIAGNOSIS: Bladder tumor and gross hematuria. HISTORY OF PRESENT ILLNESS: This is an 89-year-old gentleman, who was referred for evaluation of gross hematuria with clots, and on evaluation it was revealed his most recent creatinine was 1.9. He has a total AUA score of 11, with a quality of life score 3. He had been urine culture negative, and cystoscopy noted bladder cancer. At the present time, he is admitted for TURBT. PAST MEDICAL HISTORY: History of bladder cancer, hypertension, urgency of urination, and TN. PAST SURGICAL HISTORY: Cystoscopy, herniorrhaphy. MEDICATIONS: Allopurinol, Bystolic, Vidrogel, Colace, Dermadex, guaifenesin, isosorbide, Nitrostat, oxygen, potassium chloride, prednisone, ProAir. ALLERGIES: Known allergies: None. FAMILY HISTORY: Hypertension. SOCIAL HISTORY: Rare alcohol consumption. . Former tobacco smoker. IMMUNIZATIONS: Positive for influenza and PCV. REVIEW OF SYSTEMS: Negative cardiac. RESPIRATORY: Positive for pulmonary pathology. GI: Negative. : Hematuria with urge frequency. NEUROLOGIC: No tingling, numbness or weakness. PHYSICAL EXAMINATION: VITAL SIGNS: Stable. CHEST: Clear. HEART: Regular rate and rhythm. LUNGS: He has unlabored breathing. ABDOMEN: Soft. No organomegaly, rebound or guarding. LOWER EXTREMITIES: Normal. At the present time, he is admitted for TUR of the bladder tumor. Indications, complications, options discussed. /[id number]/MODL MTDD
[2017-02-02] MEDS ORDERED: LR 1,000 ML IV ONE (10:37)
[2017-02-02] MEDS ORDERED: LIDOCAINE 1% 2 ML INJ ID PRN (10:37)
--- NOTE | 2017-02-02 11:53 | PDANEPAE ---
ANE History of Present Illness here for turbt ANE Past Medical History - Cardiovascular History Hx Hypertension: Yes Hx Arrhythmias: No Hx Chest Pain: No Hx Coronary Artery / Peripheral Vascular Disease: Yes Hx CHF / Valvular Disease: Yes Hx Palpitations: No Cardiovascular History Comment: NO CHEST PAIN RECENTLY. MT 07/03/16. STENT X4 - Pulmonary History Hx COPD: Yes Hx Asthma/Reactive Airway Disease: Yes Hx Recent Upper Respiratory Infection: No Hx Oxygen in Use at Home: Yes O2 in Use at Home (L/minute): O2 @4L CONT. Hx Sleep Apnea: No Sleep Apnea Screening Result - Last Documented: Positive Pulmonary History Comment: HYPOXEMIA. COPD. PULMONARY EDEMA. RESP FAILURE - Neurologic History Hx Cerebrovascular Accident: No Hx Seizures: No Hx Dementia: No - Endocrine History Hx Diabetes: No - Renal History Hx Renal Disorders: Yes Renal History Comment: CHRONIC RENAL FAILURE. BLADDER TUMOR - Liver History Hx Hepatic Disorders: No - Neurological & Psychiatric Hx Hx Neurological and Psychiatric Disorders: No - Cancer History Hx Cancer: No - Congenital Disorder History Hx Congenital Disorders: No - GI History Hx Gastrointestinal Disorders: No - Other Health History Other Health History: NEG - Chronic Pain History Chronic Pain: No - Surgical History Prior Surgeries: BACK SURGERY. CORONARY STENTS X4. HERNIORRHAPHY ANE Review of Systems Review of Systems: - Exercise capacity METS (RN): 3 METS ANE Patient History - Allergies Allergies/Adverse Reactions: No Known Allergies Allergy (Verified 12/06/16 17:16) - Home Medications Home Medications: Albuterol [Proventil Inhaler HFA (*)] 1 - 2 puffs IH DAILY PRN 07/03/16 [Last Taken 07/03/16] Nebivolol HCl [Bystolic] 10 mg PO DAILY 07/03/16 [Last Taken 02/02/17 09:00] predniSONE 5 mg PO DAILY 07/03/16 [Last Taken 02/02/17 09:00] Allopurinol [Allopurinol 300 MG (RX)] 300 mg PO DAILY 01/23/17 [Last Taken 02/02 09:00] Atorvastatin Calcium [Lipitor 40 mg (*)] 40 mg PO HS 01/23/17 [Last Taken 09:00] Potassium Cl [Klor-Con 20 meq (*)] 20 meq PO DAILY 01/23/17 [Last Taken 09:00] Torsemide [Demadex] 40 mg PO DAILY 01/23/17 [Last Taken 02/01/17] guaiFENesin [Mucinex 600 MG (*)] 600 mg PO DAILY PRN 01/23/17 [Last Taken Unknown] - NPO status NPO Since - Liquids (Date): 02/01/17 NPO Since - Liquids (Time): 21:00 NPO Since - Solids (Date): 02/01/17 NPO Since - Solids (Time): 18:00 - Anes Hx Anes Hx: no prior problems - Smoking Hx Smoking Status: Former smoker - Family Anes Hx Family Hx Anesthesia Complications: NEG ANE Labs/Vital Signs - Vital Signs Blood Pressure: 173/75 Heart Rate: 57 Respiratory Rate: 20 O2 Sat (%): 99 Height: 177.8 cm Weight: 66.224 kg ANE Physical Exam - Airway Neck exam: FROM - Pulmonary Pulmonary: no respiratory distress - Cardiovascular Cardiovascular: regular rate and rhythym ANE Anesthesia Plan Anesthesia Plan: GA w LMA
[2017-02-02] MEDS ORDERED: ceFAZolin 2 GM/DEXTROSE 100 ML IV ONE (12:38)
--- NOTE | 2017-02-02 12:39 | PDHPUP ---
History & Physical Update H&P update statement: This history and physical update is based on an assessment of the patient which was completed after admission or registration (within 24 hours), but prior to the surgery/procedure. H&P update: H&P reviewed & patient examined, no change in patient's condition since H&P completed
[2017-02-02] MEDS ORDERED: fentaNYL 100 MCG/2 ML INJ ONE (12:45)
[2017-02-02] MEDS ORDERED: PROPOFOL/EMULSION 500 MG/50 ML BOTTLE IV ONE (12:46)
[2017-02-02] MEDS ORDERED: fentaNYL 100 MCG/2 ML INJ IVP PRN (13:22)
[2017-02-02] MEDS ORDERED: ALBUTEROL 3 ML DEYVIAL IH PRN (13:22)
[2017-02-02] MEDS ORDERED: NALOXONE HCL 0.4 MG/ML INJ IVP PRN ×2 (13:22→14:30)
[2017-02-02] MEDS ORDERED: HYDROCODONE/APAP 5/325 TAB PO PRN (13:53)
[2017-02-02] MEDS ORDERED: ONDANSETRON 4 MG/2 ML VIAL IVP PRN (13:53)
[2017-02-02] MEDS ORDERED: ZOLPIDEM TARTRATE 5 MG TAB PO PRN (13:53)
[2017-02-02] MEDS ORDERED: ONDANSETRON DISINTEGRATING 4 MG TAB PO PRN (13:53)
[2017-02-02] MEDS ORDERED: OPIUM/BELLADONNA ALKALO SUPP PR PRN (13:53)
--- NOTE | 2017-02-02 13:58 | POSTOPPROG ---
Post Op Note Date of Operation: 02/02/17 Surgeon: Sherwin Oro Anesthesia: LMA Pre-op Diagnosis: BLADDER TUMOR Post-op Diagnosis: SAME Indication: SAME Procedure: TURBT Inf/Abcess present in the surg proc area at time of surgery?: No EBL: 50-100 Complications: NONE Drains: Other (ZHONG) Specimen(s): SENT---DICTATED
[2017-02-02] MEDS ORDERED: LABETALOL HCL 5 MG/ML 20 ML MDV IVP PRN (14:30)
[2017-02-02] MEDS ORDERED: LABETALOL HCL 5 MG/ML 20 ML MDV ONE (14:34)
--- NOTE | 2017-02-02 14:37 | GOP ---
[f rep st] OPERATIVE REPORT DATE OF OPERATION: 02/02/2017 SURGEON: Sherwin Oro MD PREOPERATIVE DIAGNOSIS: Bladder cancer. POSTOPERATIVE DIAGNOSIS: Bladder cancer. PROCEDURE PERFORMED: Transurethral resection of bladder tumor, large. FINDINGS: DESCRIPTION OF PROCEDURE: The gentleman underwent general anesthesia, was prepped and draped in norm al sterile fashion after appropriate time-out. Resectoscope was passed into the bladder. He had a t umor that involved the majority of the trigone, above the trigone, lateral to the trigone, and I exci sed the larger tumors and sent them for pathologic assessment. Then, the fibrinous material that was diffusely above the trigone was fulgurated with the bipolar electrocautery. He did have an obturato r nerve stimulation and had a small perforation extraperitoneal of the right side of the bladder. It appeared that I did have muscle through the resection and appeared to be a high-grade inflammatory l esion with squamous metaplasia changes. At the present time, he had a 3-way catheter passed in the b ladder, 30 cc balloon inflated, and irrigated clear. He will be admitted for postoperative care. We will probably leave his catheter in for several days because of the findings. /[id number]/MODL
--- NOTE | 2017-02-02 14:44 | POSTANESTH ---
Post Anesthetic Evaluation Cardiovascular Status: Normal, Stable Respiratory Status: Normal, Stable Level of Consciousness/Mental Status: Can Participate in Eval Pain Control: Adequate, Prn Tx Ordered Nausea/Vomiting Control: Adequate, Prn Tx Ordered Complications Possibly Related to Anesthesia: None Noted
[2017-02-02] MEDS: D5W LR 1,000 ML IV SCH ×2 (16:04→23:40)
[2017-02-03] MEDS: D5W LR 1,000 ML IV SCH (06:35)
--- NOTE | 2017-02-03 15:26 | PDIAF ---
- Diagnosis Code Status: Full Code - Medication Management Discharge Medications: Medications to Continue on Transfer Albuterol [Proventil Inhaler HFA (*)] 1 - 2 puffs IH DAILY PRN 07/03/16 [Last Taken 07/03/16] Nebivolol HCl [Bystolic] 10 mg PO DAILY 07/03/16 [Last Taken 02/02/17 09:00] predniSONE 5 mg PO DAILY 07/03/16 [Last Taken 02/02/17 09:00] Isosorbide Dinitrate [Isosorbide Dinitrate 10 mg (*)] 10 mg PO TIDNITRATE #0 tab 07/08/16 [Last Taken 02/02/17 09:00] Nitroglycerin [Nitrostat 0.4 mg (*)] 0.4 mg SL PRN PRN #0 btl 07/08/16 [Last Taken Unknown] Allopurinol [Allopurinol 300 MG (RX)] 300 mg PO DAILY 01/23/17 [Last Taken 02/02 09:00] Atorvastatin Calcium [Lipitor 40 mg (*)] 40 mg PO HS 01/23/17 [Last Taken 09:00] Potassium Cl [Klor-Con 20 meq (*)] 20 meq PO DAILY 01/23/17 [Last Taken 09:00] Torsemide [Demadex] 40 mg PO DAILY 01/23/17 [Last Taken 02/01/17] guaiFENesin [Mucinex 600 MG (*)] 600 mg PO DAILY PRN 01/23/17 [Last Taken Unknown] Aspirin EC [Aspirin EC 81 mg (*)] 81 mg PO DAILY #0 tab 02/03/17 [Last Taken 04/09 09:00] Clopidogrel Bisulfate [Plavix (*)] 75 mg PO DAILY #0 tab 02/03/17 [Last Taken ] Discharge Medications: Refer to the Discharge Home Medication list for PRN reason. - Orders Services needed: Registered Nurse, Occupational Therapy Diet Recommendation: no restrictions on diet Diet Texture: Regular Texture Diet Andersen: Yes - Follow Up Care Current Providers and Referrals: David Dalal MD [Primary Care Provider] -
--- NOTE | 2017-02-03 15:30 | ASMTCMCOM ---
CM Note CM Note Notes: 89 y/o male admitted for TURBT. Pt ready for DC today. Per RN, pt will benefit from HC RN. Spoke with pt and son and they agreed to plan. [facility] alerted. Verified address, phone and discussed homebound. Son will stay with pt tonight and two other siblings will also be present for / over next few days at least. Faxed referral to [facility]. pt also asked to get professional case management involved. They are an agency that works with former [employer] employes. Spoke with someone at [facility] and they will contact pt in next few days. Date Signed: 02/03/2017 03:30 PM Electronically Signed By:Narda Hubbard LCSW
--- NOTE | 2017-02-03 17:16 | ASDISCHSUM ---
Discharge Information Plan Status:SNF Medically Cleared to Leave: Discharge Date:02/09/2017 03:55 PM CM D/C Disposition:Snf Facility ADT D/C Disposition:Snf Facility Projected Discharge Date:02/09/2017 03:00 PM Transportation at D/C:Wheelchair Van Discharge Delay Reason: Follow-Up Date:02/09/2017 03:00 PM Discharge Slot: Final Diagnosis:Hypoxic Respiratory Failure, HTN, Bladder Mass s/p resection Placement Information Referral Type:*Home Health Care Services Referral ID:[id number] Provider Name:[facility] [place] Address 1:[address] [address] Address 2: City:[place] Selection Factors: State:[place] Referral Type:*Group Home/SNF Referral ID:[id number] Provider Name:[facility] Address 1:[address] Address 2: City:[place] Selection Factors: State:[place] Patient Contact Information Contact Name:GUDELIA Relationship: Address: Home Phone: Work Phone: City: [facility] Phone: [facility]/Zip Code: Email: Financial Information Financial Class: Primary Plan Desc:MEDICARE INPATIENT Primary Plan Number:[id number] Secondary Plan Desc:[facility] Secondary Plan Number:[id number] Assessment Information [facility] CM Progress Note CM Note CM Note Notes: 89 y/o male admitted for TURBT. Pt ready for DC today. Per RN, pt will benefit from HC RN. Spoke with pt and son and they agreed to plan. [facility] alerted. Verified address, phone and discussed homebound. Son will stay with pt josh and two other siblings will also be present for 14/11 over next few days at least. Faxed referral to [facility]. pt also asked to get professional case management involved. They are an agency that works with former [employer] employes. Spoke with someone at [facility] and they will contact pt in next few days. Date Signed: 02/03/2017 03:30 PM Electronically Signed By:Narda Hubbard LCSW [facility] CM Progress Note CM Note CM Note Notes: Met with patient and family to discuss plans for home. They said they were uncertain if they wanted to use [facility]. Provided them with list of Home care agencies and they said they would look at it and make a decision. Also provided them with private duty list which they intend to use for unskilled services. Patient is also connected with the Dept of labor assistance program through [employer]. discussed with them the need to speak with their Dept of customer retention representative to clarify what is covered financially under their program. Case management will continue to follow. Date Signed: 02/04/2017 06:07 PM Electronically Signed By:CADENCE Galan [facility] CM Progress Note CM Note CM Note Notes: Patient reports that he has been at [facility] in the past and would like to go there when discharged. Referral made to [facility]. Date Signed: 02/05/2017 03:00 PM Electronically Signed By:Apple Ansari LCSW [facility] CM Progress Note CM Note CM Note Notes: 02/06/2017 Case Management Note Received phone call from Helen at [facility] requesting clarification of chemo therapy status for pt. Per MD, no chemo treatments planned at this time. Helen from [facility] accepted pt as long as pt was not receiving chemo therapy. Case Management d/c poc: To [facility] when medically stable. Case Management to follow. Date Signed: 02/06/2017 02:24 PM Electronically Signed By:Fide Cheatham RN [facility] CM Progress Note CM Note CM Note Notes: Pt will dc [facility]. Met w/pt to discuss; he is in agreement w/dc poc. Notified Helen at [facility] and they are ready to accept. Orders/info sent through [employer] Vicky Zavala notified. D/W RN and . Pt will be picked up by [facility] van at 3 PM. Date Signed: 02/09/2017 01:52 PM Electronically Signed By:Ela Guzman RN Intervention Information Intervention Type:*BAKER-Signed Date of Service:02/03/2017 10:39 AM Patient Type:Observation Staff Member:Joanne Gil Hours: Discipline: Severity: Comment: Intervention Type:*IM-Signed Date of Service:02/09/2017 02:03 PM Patient Type:Inpatient Staff Member:Joanne Gil Hours: Discipline: Severity: Comment:
[2017-02-03] MEDS ORDERED: NITROGLYCERIN 0.4 MG BTL SL PRN (18:25)
[2017-02-03] MEDS ORDERED: ALBUTEROL 60 PUFFS/8 GM MDI IH PRN (18:25)
[2017-02-03] MEDS ORDERED: guaiFENesin 600 MG TAB.ER PO PRN (18:25)
[2017-02-03] MEDS ORDERED: IPRATROPIUM/ALBUTEROL 3 ML DEYVIAL ONE (18:31)
--- NOTE | 2017-02-03 18:40 | CPEKG ---
Heart Rate: 108 RR Interval: 556 P-R Interval: 156 QRSD Interval: 152 QT Interval: 376 QTC Interval: 504 P [place]: 28 QRS [place]: 102 T Wave [place]: -45 EKG Severity - ABNORMAL ECG - EKG Impression: SINUS TACHYCARDIA EKG Impression: PROBABLE LEFT ATRIAL ABNORMALITY EKG Impression: RBBB AND LPFB EKG Impression: ST DEPRESSION, CONSIDER ISCHEMIA, INF LEADS EKG Impression: HEART RATES ARE 20 BPM HIGHER THAN ON PRIOR ECG IN JUNE 2016 Electronically Signed By: Konstantin Barrow 05-Feb-2017 08:51:28
[2017-02-03] MEDS: IPRATROPIUM/ALBUTEROL 3 ML DEYVIAL IH PRN (18:42)
[2017-02-03 19:00] LABS: HEMOGLOBIN 10.4 g/dL (13.7-17.5); MEAN CELL HEMOGLOBIN 30.3 pg (27.9-34.1); MEAN CELL HEMOGLOBIN CONCENTR. 32.5 g/dL (32.4-36.7); MEAN CELL VOLUME 93.3 fL (81.5-99.8); RED BLOOD CELL COUNT 3.43 10^6/uL (4.40-6.38)
[2017-02-03 19:14] LABS: ALANINE AMINOTRANSFERASE 122 IU/L (21-72); ALBUMIN 3.3 g/dL (3.5-5.0); ALKALINE PHOSPHATASE 1171 IU/L (38-126); ANION GAP 10 mEq/L (8-16); ASPARTATE AMINOTRANSFERASE 130 IU/L (17-59); BILIRUBIN,TOTAL 1.4 mg/dL (0.1-1.4); CALCIUM 9.3 mg/dL (8.5-10.4); CARBON DIOXIDE 24 mEq/l (22-31); CHLORIDE 106 mEq/L (97-110); CREATININE 1.4 mg/dL (0.7-1.3); GLOMERULAR FILTRATION RATE 48; GLUCOSE 116 mg/dL (70-100); POTASSIUM 4.2 mEq/L (3.5-5.2); SODIUM 140 mEq/L (134-144); TOTAL PROTEIN 6.1 g/dL (6.3-8.2)
[2017-02-03] MEDS: NEBIVOLOL HCL 5 MG TAB PO SCH (19:16)
[2017-02-03] MEDS: ATORVASTATIN CALCIUM 40 MG TAB PO SCH (19:17)
[2017-02-03] MEDS: ISOSORBIDE DINITRATE 10 MG TAB PO SCH (19:18)
[2017-02-03 19:24] LABS: TROPONIN I 0.212 ng/mL (0.000-0.034)
--- NOTE | 2017-02-03 20:03 | GDS ---
[f rep st] DISCHARGE SUMMARY PREOP AND POSTOP DIAGNOSIS: Bladder neoplasm. BRIEF HPI: A pleasant 89-year-old male who was evaluated at our office, found to have a bladder tumo r on cystoscopy. After a full discussion of his options, he elected to have a TURBT done. He underw ent this TURBT procedure without difficulty. He is being discharged home in good condition. He is t o restart his Plavix and aspirin on Monday. Follow up with our office Monday or Monday morning for catheter removal. /[id number]/MODL
[2017-02-03] MEDS ORDERED: hydrALAZINE 20 MG/ML VIAL IVP PRN (20:28)
[2017-02-03] MEDS: ACETAMINOPHEN 325 MG TAB PO PRN (23:07)
--- NOTE | 2017-02-04 00:09 | GCON ---
[f rep st] CONSULTATION DATE OF CONSULTATION: 02/03/2017 REFERRING PHYSICIAN: Sherwin Oro MD REASON FOR CONSULTATION: Shortness of breath. HISTORY: The patient is an 89-year-old male with history of bladder cancer, 3- vessel coronary artery disease, CKD, COPD, chronic hypoxemic respiratory failure , who underwent elective transurethral resection of bladder tumor 02/02/2017. The patient was to be discharged home this evening, but then developed shortness of breath. He currently denies chest pain or dizziness. No N/V/D. No cough. Does have pelvic pain midline. Abdomen feels a little distended. No PND. No lower extremity edema. He is on a diuretic. Can walk minimally without getting significantly short of breath at baseline. He was evaluated in the past by Cardiology and Dr. Sanchez for 3-vessel disease, but was not deemed a good candidate, given chronic COPD and hypoxemia. Hospitalized June 2016 with NSTEMI. Cath showed severe 3V disease, s/p 4 stents to RCA. Evaluated by Dr. Sanchez, but deemed a poor surgical candidate with underlying lung disease. REVIEW OF SYSTEMS: I completed a 10-point review of systems, negative except as noted in HPI. PAST MEDICAL HISTORY: 1. Coronary artery disease 3-vessel, medically managed. Catheterization 2016 with drug-eluting stent to RCA, total 4 stents. Severe LAD disease 2. Asbestosis, COPD, chronic hypoxemic respiratory failure on 4 L. 3. Hypertension. 4. History of pleural effusion. 5. Right bundle branch block. 6. Bladder tumor. 7. Systolic heart failure with EF of 40% 8. Gout. FAMILY HISTORY: Noncontributory. PAST SURGICAL HISTORY: Lumbar spine surgery 2004. Inguinal hernia repair. SOCIAL HISTORY: He is a former smoker, smoked a pack a day for 50 years, quit 40 years ago. 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 Rare alcohol. Lives at home independently in [place]. His son is visiting here from [place]. ALLERGIES: No known drug allergies. HOME MEDICATIONS: Prednisone 5 mg daily. Guaifenesin 600 mg p.r.n. Torsemide 40 mg daily. Potassium 20 mEq p.o. daily. Bystolic 10 mg daily. Isosorbide 10 mg 3 times daily. Plavix 75 mg daily, which has been held for procedure. Lipitor 40 mg. aspirin 81 mg daily. Allopurinol 300 mg daily. Albuterol 1-2 puffs inhaled daily p.r.n. Nitroglycerin as needed. PHYSICAL EXAMINATION: VITAL SIGNS: Temperature 37.2, blood pressure 188/79, heart rate in the 110s, respirations 22, 95% on 4 L. GENERAL: Elderly male, mildly uncomfortable in bed, but no acute distress. HEENT: PERRLA, moist mucous membranes. CV: Tachy but regular. No murmurs, gallops, or rubs. No lower extremity edema. LUNGS: Diminished breath sounds throughout. Poor air movement. Mild expiratory wheezing. No crackles. ABDOMEN: Mild distention, soft, nontender, positive bowel sounds. : Midline pelvic tenderness to palpation. Andersen in place with blood in irrigation. NEURO: 2 through 12 intact. PSYCH: Alert and oriented x3. LABORATORY DATA: From 01/27/2017: WBC 10, hemoglobin 9, hematocrit 30, platelets 262. Sodium 144, potassium 4.2, chloride 102, carbon dioxide 26, creatinine 2, baseline is 1.5-1.9. Chest x-ray is personally reviewed by me: Bilateral alveolar opacities, which was seen on previous x-ray. 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 ST depression inferior leads, which is seen on prior. CBC, troponin, and BNP currently pending. ASSESSMENT AND PLAN: 1. Shortness of breath: ddxl includes volume overload,infection, COPD, ACS. Suspect this is secondary to not getting his home inhalers and steroids. Mild abdominal distention may be contributing. Duonnebs, home prednisone. Incentive spirometer. Check stat labs, CXR, EKG, and troponin. 2. Coronary artery disease. Recent 4 stents to right coronary artery in 2016. Resume his statin and beta karo. No aspirin or Plavix, given recent surgery. 3. Chronic hypoxemic respiratory failure: due asbestosis, COPD. DuoNebs and prednisone. 4. Hypertension: Resume home medications. 5. Bladder tumor: Status post transurethral resection 02/02/[address] Oro. Having hematuria, clots. Cont bladder irrigation. H/H pending 6. Diet: Regular. 7. Deep venous thrombosis prophylaxis: Sequential compression devices. 8. Goal: I spoke with pt and sons about code status and they all agree on DNR given underlying comorbidities. Disposition: The patient warrants observation-admission, given acute dyspnea, warranting DuoNebs, respiratory therapy, and further testing. /[id number]/MODL MTDD
[2017-02-04 04:29] LABS: HEMATOCRIT 27.7 % (40.0-51.0); HEMOGLOBIN 8.9 g/dL (13.7-17.5); MEAN CELL HEMOGLOBIN 30.3 pg (27.9-34.1); MEAN CELL HEMOGLOBIN CONCENTR. 32.1 g/dL (32.4-36.7); MEAN CELL VOLUME 94.2 fL (81.5-99.8); RED BLOOD CELL COUNT 2.94 10^6/uL (4.40-6.38); RED CELL DISTRIBUTION WIDTH 18.6 % (11.5-15.2)
[2017-02-04 04:47] LABS: ANION GAP 9 mEq/L (8-16); CALCIUM 8.6 mg/dL (8.5-10.4); CARBON DIOXIDE 24 mEq/l (22-31); CHLORIDE 109 mEq/L (97-110); CREATININE 1.5 mg/dL (0.7-1.3); GLOMERULAR FILTRATION RATE 44; GLUCOSE 108 mg/dL (70-100); POTASSIUM 4.5 mEq/L (3.5-5.2); SODIUM 142 mEq/L (134-144)
[2017-02-04] MEDS: predniSONE 5 MG TAB PO SCH (09:00)
[2017-02-04] MEDS: NEBIVOLOL HCL 5 MG TAB PO SCH (09:01)
[2017-02-04] MEDS: ALLOPURINOL 300 MG TAB PO SCH (09:01)
[2017-02-04] MEDS: ACETAMINOPHEN 325 MG TAB PO PRN (09:51)
--- NOTE | 2017-02-04 10:48 | SOAPPROG ---
SOAP Progress Note Assessment/Plan: Assessment: Bladder cancer Acute continue sarabia and follow up as out pt Monday. DC per hospitalist appreciated at appropriate time. Plan: await path on bladder lesion, continue sarabia and disposition per hospitalist 02/04/17 10:47 Subjective: did not visit pt Objective: Vital Signs Temp Pulse Resp BP Pulse Ox 36.7 C 79 17 154/75 H 95 02/04/17 08:00 02/04/17 08:00 02/04/17 08:00 02/04/17 08:00 02/04/17 08:00 Laboratory Results 02/04/17 04:01 02/04/17 04:01 02/03/17 02/04/17 02/05/17 05:59 05:59 05:59 Intake Total 293 2074 Output Total 0019 1375 Balance -2482 699 ICD10 Worksheet Patient Problems: Problems Problem Status Onset Bladder cancer Acute Acute respiratory failure Acute COPD (chronic obstructive pulmonary disease) Acute Cardiac arrest Acute Chronic Disease Mgmt/Transitional Care Acute Hypoxemia Acute Pneumonia Acute Shortness of breath Acute Urinary tract infection Acute - ICD10 Problem Qualifiers (1) Bladder cancer
[2017-02-04] MEDS: ISOSORBIDE DINITRATE 10 MG TAB PO SCH ×3 (14:08→16:06)
[2017-02-04] MEDS: HYDROCODONE/APAP 5/325 TAB PO PRN (16:06)
--- NOTE | 2017-02-04 18:08 | ASMTCMCOM ---
CM Note CM Note Notes: Met with patient and family to discuss plans for home. They said they were uncertain if they wanted to use [facility]. Provided them with list of Home care agencies and they said they would look at it and make a decision. Also provided them with private duty list which they intend to use for unskilled services. Patient is also connected with the Dept of labor assistance program through [employer]. discussed with them the need to speak with their Dept of public service representative to clarify what is covered financially under their program. Case management will continue to follow. Date Signed: 02/04/2017 06:07 PM Electronically Signed By:CADENCE Galan
[2017-02-04] MEDS: ATORVASTATIN CALCIUM 40 MG TAB PO SCH (20:15)
--- NOTE | 2017-02-04 20:30 | HOSPPROG ---
Hospitalist Progress Note Assessment/Plan: 89 yo M with hx of bladder cancer, CAD, CKD, COPD and chronic hypoxia s/p TURP with post op SOB # SOB: without worse hypoxia than baseline and in the setting of not being on usual inhalers. CXR personally reviewed with bilateral alveolar opacities that are chronic but worse thn prior. Has resolved. # Chronic hypoxic respiratory failure: at [facility] on 4L of O2, currently at baseline. 2/2 underlying asbestosis, copd. # bladder cancer: s/p TURBT, today sarabia in place and had some obstruction with now clearing urine. Urology following up on path. # systolic heart failure: with eF of 40%, appears to b compensated at this time # HTN: has been well controlled on nebivolol and isosorbide, prn hydralazine # CAD: with 4 stents recently placed, will resume asa/plavix in am, continue bb/ statin # CKD: seems to be at baseline, following # dispo: IP status, will likely be ready for dc in am so long as no issues with sarabia etc Patient new to my care. Old records reviewed and summarized as above. Subjective: no significant overnight events, patient no longer sob Objective: Vital Signs Temp Pulse Resp BP Pulse Ox 36.6 C 69 18 130/54 H 93 02/04/17 19:25 02/04/17 19:25 02/04/17 19:25 02/04/17 19:25 02/04/17 19:25 Laboratory Results 02/04/17 04:01 02/04/17 04:01 02/03/17 02/04/17 02/05/17 05:59 05:59 05:59 Intake Total 293 2074 Output Total 2775 1375 1800 Balance -2482 699 -1800 awake alert anicteric op clear rrr no mrg dec bs throughout soft nt nd no cce warm well perfused oriented appropriate ICD10 Worksheet Patient Problems: Problems Problem Status Onset Shortness of breath Acute Hypoxemia Acute COPD (chronic obstructive pulmonary disease) Acute Chronic Disease Mgmt/Transitional Care Acute Pneumonia Acute Cardiac arrest Acute Acute respiratory failure Acute Urinary tract infection Acute Bladder cancer Acute
[2017-02-05] MEDS: HYDROCODONE/APAP 5/325 TAB PO PRN ×2 (03:05→16:17)
[2017-02-05 04:05] LABS: % IMMATURE GRANULYOCYTES 0.7 % (0.0-1.1); ADD DIFF? NO; ADD MORPH? NO; ADD SCAN? NO; ATYPICAL LYMPHOCYTE FLAG 0 (0-99); FRAGMENT RBC FLAG 10 (0-99); HEMATOCRIT 26.7 % (40.0-51.0); HEMOGLOBIN 8.4 g/dL (13.7-17.5); LEFT SHIFT FLG 10 (0-99); LIPEMIA HEMOLYSIS FLAG 80 (0-99); MEAN CELL HEMOGLOBIN 29.3 pg (27.9-34.1); MEAN CELL HEMOGLOBIN CONCENTR. 31.5 g/dL (32.4-36.7); MEAN PLATELET VOLUME 10.3 fL (8.7-11.7); PLATELET CLUMPS FLAG 10 (0-99); PLATELET COUNT 231 10^3/uL (150-400); RED BLOOD CELL COUNT 2.87 10^6/uL (4.40-6.38); RED CELL DISTRIBUTION WIDTH 18.6 % (11.5-15.2)
[2017-02-05 04:46] LABS: ANION GAP 8 mEq/L (8-16); CALCIUM 8.8 mg/dL (8.5-10.4); CARBON DIOXIDE 26 mEq/l (22-31); CHLORIDE 107 mEq/L (97-110); CREATININE 1.9 mg/dL (0.7-1.3); GLOMERULAR FILTRATION RATE 34; GLUCOSE 105 mg/dL (70-100); POTASSIUM 4.5 mEq/L (3.5-5.2); SODIUM 141 mEq/L (134-144)
[2017-02-05] MEDS ORDERED: ASPIRIN 81 MG CHEWABLE TAB PO SCH (09:00)
[2017-02-05] MEDS ORDERED: CLOPIDOGREL BISULFATE 75 MG TAB PO SCH (09:00)
--- NOTE | 2017-02-05 09:19 | HOSPPROG ---
Hospitalist Progress Note Assessment/Plan: #Acute on chronic hypoxemic resp failure: due to being off inhaler. CXR stable #Accelerated HTN: better-controlled back on home meds #CAD: not candidate for surgery or cath. Cont medical management #Indeterminate trop: suspect demand with surgery, acute hypoxia. No CP. Cont medical management #Bladder mass: s/p resection. Still having hematuria. Cont bladder irrigation #Gout: renally-dose allopurinol #CKD: Cr stable #Right leg /kneepain: no e/o gout flare. Check knee xray #Leukocytosis: stable. Afebrile. May be due to steroids #Normocytic anemia: some drop since surgery. Will monitor closely #Diet: cardiac #Deconditioning: cannot manage sarabia alone. PT evaluating, CM to assist with placement #Disp: cont inpatient admission. Requires continuous bladder irrigation, telemetry Subjective: breathing "back to normal". c/o right leg pain Objective: Vital Signs Temp Pulse Resp BP Pulse Ox 36.8 C 71 16 146/65 H 97 02/05/17 07:48 02/05/17 07:48 02/05/17 07:48 02/05/17 07:48 02/05/17 07:48 Laboratory Results 02/05/17 03:41 02/05/17 03:41 02/04/17 02/05/17 02/06/17 05:59 05:59 05:59 Intake Total 2074 350 Output Total 1375 1800 Balance 699 -1450 - Physical Exam Constitutional: chronically ill appearing Eyes: PERRL Ears, Nose, Mouth, Throat: moist mucous membranes Cardiovascular: regular rate and rhythym Respiratory: reduced air movement (diminished throughout, no wheezes today) Gastrointestinal: normoactive bowel sounds Genitourinary: sarabia in urethra (hematuria), other (mild suprapubic TTP) Skin: warm Musculoskeletal: full muscle strength, other (righgt prox thigh with mild swelling, no pain or redness. Knee with no swelling, redness or erythrmaa) Neurologic: AAOx3 Psychiatric: interacting appropriately ICD10 Worksheet Patient Problems: Problems Problem Status Onset Bladder cancer Acute Acute respiratory failure Acute COPD (chronic obstructive pulmonary disease) Acute Cardiac arrest Acute Chronic Disease Mgmt/Transitional Care Acute Hypoxemia Acute Pneumonia Acute Shortness of breath Acute Urinary tract infection Acute
[2017-02-05] MEDS: NEBIVOLOL HCL 5 MG TAB PO SCH (10:26)
[2017-02-05] MEDS: ALLOPURINOL 300 MG TAB PO SCH (10:26)
[2017-02-05] MEDS: ISOSORBIDE DINITRATE 10 MG TAB PO SCH ×3 (10:26→16:17)
[2017-02-05] MEDS: predniSONE 5 MG TAB PO SCH (10:27)
[2017-02-05] MEDS ORDERED: ALLOPURINOL 300 MG TAB PO SCH (12:43)
--- NOTE | 2017-02-05 15:01 | ASMTCMCOM ---
CM Note CM Note Notes: Patient reports that he has been at [facility] in the past and would like to go there when discharged. Referral made to [facility]. Date Signed: 02/05/2017 03:00 PM Electronically Signed By:Apple Ansari LCSW
[2017-02-05] MEDS: ATORVASTATIN CALCIUM 40 MG TAB PO SCH (19:59)
[2017-02-06 04:16] LABS: HEMATOCRIT 22.9 % (40.0-51.0); HEMOGLOBIN 7.2 g/dL (13.7-17.5); MEAN CELL HEMOGLOBIN 29.4 pg (27.9-34.1); MEAN CELL HEMOGLOBIN CONCENTR. 31.4 g/dL (32.4-36.7); MEAN CELL VOLUME 93.5 fL (81.5-99.8); RED BLOOD CELL COUNT 2.45 10^6/uL (4.40-6.38); RED CELL DISTRIBUTION WIDTH 18.4 % (11.5-15.2)
[2017-02-06 04:30] LABS: ANION GAP 7 mEq/L (8-16); CALCIUM 8.6 mg/dL (8.5-10.4); CARBON DIOXIDE 25 mEq/l (22-31); CHLORIDE 106 mEq/L (97-110); GLOMERULAR FILTRATION RATE 32; GLUCOSE 97 mg/dL (70-100); POTASSIUM 4.2 mEq/L (3.5-5.2); SODIUM 138 mEq/L (134-144)
--- NOTE | 2017-02-06 08:04 | HOSPPROG ---
Hospitalist Progress Note Assessment/Plan: #Acute blood loss anemia: hematuria, passing a lot of clots. Hold ASA/Plavix. Transfuse 1 unit #Acute on chronic hypoxemic resp failure: resolved. Due to being off pred/ inhalers.CXR stable #Accelerated HTN: better-controlled back on home meds #CAD: not candidate for surgery or cath. Holding antiplatelets with anemia #Indeterminate trop: suspect demand with surgery, acute hypoxia. No CP. Cont medical management #Bladder mass: s/p resection. Still having hematuria. Cont bladder irrigation #Gout: renally-dose allopurinol #SADE on CKD: Cr 2.0. Give back small IVFs, repeat in morning #Right suprapatellar effusion: larger today. h/o gout. Will d/w ortho. #Leukocytosis: stable. Afebrile. May be due to steroids #Normocytic anemia: some drop since surgery. Will monitor closely #Diet: cardiac #Deconditioning: cannot manage sarabia alone. PT evaluating, CM to assist with placement #Disp: cont inpatient admission. Requires continuous bladder irrigation, telemetry Subjective: no CP or SOB. Pain in right knee worse today Objective: Vital Signs Temp Pulse Resp BP Pulse Ox 36.6 C 67 16 143/64 H 99 02/06/17 04:00 02/06/17 04:00 02/06/17 04:00 02/06/17 04:00 02/06/17 04:00 Laboratory Results 02/06/17 03:55 02/06/17 03:55 02/05/17 02/06/17 02/07/17 05:59 05:59 05:59 Intake Total 350 Output Total 1800 4350 Balance -1450 -4350 - Physical Exam Constitutional: chronically ill appearing Eyes: PERRL Ears, Nose, Mouth, Throat: moist mucous membranes Cardiovascular: regular rate and rhythym, no murmur, rub, or gallop Respiratory: reduced air movement (diminished breath sounds throughout. No cracke) ICD10 Worksheet Patient Problems: Problems Problem Status Onset Bladder cancer Acute Acute respiratory failure Acute COPD (chronic obstructive pulmonary disease) Acute Cardiac arrest Acute Chronic Disease Mgmt/Transitional Care Acute Hypoxemia Acute Pneumonia Acute Shortness of breath Acute Urinary tract infection Acute
[2017-02-06] MEDS: ISOSORBIDE DINITRATE 10 MG TAB PO SCH ×3 (09:08→17:45)
[2017-02-06] MEDS: NEBIVOLOL HCL 5 MG TAB PO SCH (09:08)
[2017-02-06] MEDS: ALLOPURINOL 100 MG TAB PO SCH (09:09)
[2017-02-06] MEDS: ACETAMINOPHEN 325 MG TAB PO PRN (09:09)
[2017-02-06] MEDS: predniSONE 5 MG TAB PO SCH (09:09)
--- NOTE | 2017-02-06 10:26 | SOAPPROG ---
SOAP Progress Note Assessment/Plan: Assessment: Hematuria improving, no specific complaint. abd - soft nt nd urine clear on cbi, no flank tenderness Plan:Rec cont CBI and agree with transfussion. Pt to go to rehab after able to stop CBI 02/06/17 10:24 02/06/17 10:26 Subjective: Pt is with out complaint, he denies flank or abdominal pain Objective: Vital Signs Temp Pulse Resp BP Pulse Ox 37.1 C 81 18 159/82 H 96 02/06/17 08:38 02/06/17 08:38 02/06/17 08:38 02/06/17 08:38 02/06/17 08:38 Laboratory Results 02/06/17 03:55 02/06/17 03:55 02/05/17 02/06/17 02/07/17 05:59 05:59 05:59 Intake Total 350 Output Total 1800 4350 Balance -1450 -4350 - Pending Discharge Pending Discharge Within 24 Hours: No Pending Discharge Within 48 Hours: No ICD10 Worksheet Patient Problems: Problems Problem Status Onset Bladder cancer Acute Acute respiratory failure Acute COPD (chronic obstructive pulmonary disease) Acute Cardiac arrest Acute Chronic Disease Mgmt/Transitional Care Acute Hypoxemia Acute Pneumonia Acute Shortness of breath Acute Urinary tract infection Acute
[2017-02-06] MEDS ORDERED: NS 1,000 ML IV SCH (14:15)
--- NOTE | 2017-02-06 14:25 | ASMTCMCOM ---
CM Note CM Note Notes: 02/06/2017 Case Management Note Received phone call from Helen at [facility] requesting clarification of chemo therapy status for pt. Per MD, no chemo treatments planned at this time. Helen from [facility] accepted pt as long as pt was not receiving chemo therapy. Case Management d/c poc: To [facility] when medically stable. Case Management to follow. Date Signed: 02/06/2017 02:24 PM Electronically Signed By:Fide Cheatham RN
[2017-02-06 20:31] LABS: HEMATOCRIT 26.8 % (40.0-51.0); HEMOGLOBIN 8.7 g/dL (13.7-17.5)
[2017-02-06] MEDS: ATORVASTATIN CALCIUM 40 MG TAB PO SCH (20:57)
[2017-02-07] MEDS: HYDROCODONE/APAP 5/325 TAB PO PRN ×4 (05:15→21:10)
[2017-02-07 05:23] LABS: HEMATOCRIT 26.3 % (40.0-51.0); HEMOGLOBIN 8.5 g/dL (13.7-17.5); MEAN CELL HEMOGLOBIN 29.2 pg (27.9-34.1); MEAN CELL HEMOGLOBIN CONCENTR. 32.3 g/dL (32.4-36.7); MEAN CELL VOLUME 90.4 fL (81.5-99.8); RED BLOOD CELL COUNT 2.91 10^6/uL (4.40-6.38); RED CELL DISTRIBUTION WIDTH 18.5 % (11.5-15.2)
[2017-02-07 05:36] LABS: ANION GAP 9 mEq/L (8-16); CALCIUM 8.9 mg/dL (8.5-10.4); CARBON DIOXIDE 22 mEq/l (22-31); CHLORIDE 108 mEq/L (97-110); CREATININE 1.7 mg/dL (0.7-1.3); GLOMERULAR FILTRATION RATE 38; GLUCOSE 93 mg/dL (70-100); POTASSIUM 4.5 mEq/L (3.5-5.2); SODIUM 139 mEq/L (134-144)
[2017-02-07] MEDS: IPRATROPIUM/ALBUTEROL 3 ML DEYVIAL IH PRN (05:47)
--- NOTE | 2017-02-07 08:38 | HOSPPROG ---
Hospitalist Progress Note Assessment/Plan: #Acute blood loss anemia: hematuria, passing a lot of clots. Hold ASA/Plavix. 1 unit RBC 02/06. U/S pending #Acute on chronic hypoxemic resp failure: resolved. Due to being off pred/ inhalers.CXR stable #Accelerated HTN: better-controlled back on home meds #CAD: not candidate for surgery or cath. Holding antiplatelets with anemia #Indeterminate trop: suspect demand with surgery, acute hypoxia. No CP. Cont medical management #Bladder mass: s/p resection. Still having hematuria. Cont bladder irrigation #Gout: renally-dose allopurinol #SADE on CKD: improved with blood and small IVFs #Right suprapatellar effusion: concern for gout. Painful h/o gout. Ortho to tap. #Leukocytosis: stable. Afebrile. May be due to steroids #Normocytic anemia: some drop since surgery. Will monitor closely #Diet: cardiac #Deconditioning: cannot manage sarabia alone. PT evaluating, CM to assist with placement #Disp: cont inpatient admission. Requires continuous bladder irrigation, telemetry Subjective: pain right knee 01/01 Objective: Vital Signs Temp Pulse Resp BP Pulse Ox 36.9 C 73 18 147/58 H 95 02/07/17 08:00 02/07/17 08:00 02/07/17 08:00 02/07/17 08:00 02/07/17 08:00 Laboratory Results 02/07/17 04:50 02/07/17 04:50 02/06/17 02/07/17 02/08/17 05:59 05:59 05:59 Intake Total 950 Output Total 5850 5206 Balance -1090 -0795 - Physical Exam Constitutional: chronically ill appearing Eyes: PERRL Ears, Nose, Mouth, Throat: moist mucous membranes Cardiovascular: regular rate and rhythym Respiratory: other (diminished BS throughout. No crackles or wheeze) Gastrointestinal: normoactive bowel sounds Genitourinary: sarabia in urethra (hematuria) Skin: warm Musculoskeletal: full muscle strength Neurologic: AAOx3, CN II-XII Intact Psychiatric: interacting appropriately ICD10 Worksheet Patient Problems: Problems Problem Status Onset Bladder cancer Acute Acute respiratory failure Acute COPD (chronic obstructive pulmonary disease) Acute Cardiac arrest Acute Chronic Disease Mgmt/Transitional Care Acute Hypoxemia Acute Pneumonia Acute Shortness of breath Acute Urinary tract infection Acute
[2017-02-07] MEDS: NEBIVOLOL HCL 5 MG TAB PO SCH (09:26)
[2017-02-07] MEDS: ISOSORBIDE DINITRATE 10 MG TAB PO SCH ×3 (09:26→16:05)
[2017-02-07] MEDS: predniSONE 5 MG TAB PO SCH (09:26)
[2017-02-07] MEDS: ALLOPURINOL 100 MG TAB PO SCH (09:26)
--- NOTE | 2017-02-07 09:49 | SOAPPROG ---
SOAP Progress Note Assessment/Plan: Assessment: Bladder cancer Acute continue sarabia and follow up sonogram for assessment of clots. 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 Plan: bladder sonogram, continue sarabia and disposition per hospitalist 02/07/17 09:47 Subjective: alert, desires dc home if possible Objective: Vital Signs Temp Pulse Resp BP Pulse Ox 36.9 C 73 18 147/58 H 95 02/07/17 08:00 02/07/17 08:00 02/07/17 08:00 02/07/17 08:00 02/07/17 08:00 Laboratory Results 02/07/17 04:50 02/07/17 04:50 02/06/17 02/07/17 02/08/17 05:59 05:59 05:59 Intake Total 950 Output Total 4350 5208 Balance -4350 -4340 Physical Exam - Physical Exam General Appearance: alert Respiratory: No respiratory distress Abdomen: other (no bladder pain) Back: No CVA tenderness ICD10 Worksheet Patient Problems: Problems Problem Status Onset Bladder cancer Acute Acute respiratory failure Acute COPD (chronic obstructive pulmonary disease) Acute Cardiac arrest Acute Chronic Disease Mgmt/Transitional Care Acute Hypoxemia Acute Pneumonia Acute Shortness of breath Acute Urinary tract infection Acute - ICD10 Problem Qualifiers (1) Bladder cancer
--- NOTE | 2017-02-07 14:51 | CPEKG ---
Heart Rate: 62 RR Interval: 968 P-R Interval: 160 QRSD Interval: 146 QT Interval: 540 QTC Interval: 549 P Aspen: 34 QRS Aspen: 90 T Wave Aspen: 213 EKG Severity - ABNORMAL ECG - EKG Impression: SINUS RHYTHM EKG Impression: PROBABLE LEFT ATRIAL ABNORMALITY EKG Impression: RBBB AND LPFB EKG Impression: HEART RATES ARE ABOUT 40 BPM SLOWER THAN IN PRIOR ECG Electronically Signed By: Konstantin Barrow 09-Feb-2017 13:54:43
[2017-02-07] MEDS ORDERED: LIDOCAINE 1% 5 ML SDV IF ONE (15:45)
[2017-02-07] MEDS ORDERED: MAGNESIUM HYDROXIDE 30 ML UDCUP PO PRN (17:00)
[2017-02-07] MEDS ORDERED: LACTULOSE 20 GM/30 ML UDCUP PO PRN (17:00)
[2017-02-07] MEDS ORDERED: BISACODYL 10 MG SUPP PR PRN (17:00)
[2017-02-07 19:32] LABS: WBC, SYNOVIAL FLUID 12148 /mm3 (0-150)
[2017-02-07] MEDS: SENNOSIDES/DOCUSATE SODIUM TAB PO SCH (20:55)
[2017-02-07] MEDS: ATORVASTATIN CALCIUM 40 MG TAB PO SCH (20:55)
[2017-02-08] MEDS: HYDROCODONE/APAP 5/325 TAB PO PRN ×4 (03:32→23:25)
--- NOTE | 2017-02-08 04:12 | GCON ---
[f rep st] CONSULTATION CHIEF COMPLAINT: Right knee pain and swelling. HISTORY OF PRESENT ILLNESS: Patient is an 89-year-old male who has a history of gout and is currently on allopurinol. He has had gout attacks in various other joints, but never his right knee. He states that the swelling is very bothersome, exploration with movement of his knee. He denies any fevers or chills or any other orthopedic complaints. PAST MEDICAL HISTORY: Hypertension, history of bladder cancer, urgency of urination and MN. PAST SURGICAL HISTORY: Cystoscopy and herniorrhaphy. MEDICATIONS: Allopurinol, Bystolic, Colace, Demadex, Nitrostat, oxygen, potassium chloride, prednisone, ProAir, guaifenesin, isosorbide. ALLERGIES: No known drug allergies. FAMILY HISTORY: Hypertension. SOCIAL HISTORY: Patient is . He is a former tobacco smoker and rarely consumes alcohol. REVIEW OF SYSTEMS: CARDIAC: Negative. RESPIRATORY: Positive for pulmonary pathology. GI: Negative. : Hematuria with urge, frequency. NEUROLOGIC: No tingling. No numbness. PHYSICAL EXAMINATION: EXTREMITIES: Right knee: There is a noted effusion in the joint. No erythema, ecchymosis, or color present. He has 0 degrees of extension, can flex it about 110 degrees, which does have discomfort. He has no tenderness to palpation along the medial or lateral joint line. No instability of varus of valgus stress testing. Negative Cristopher. Negative Jack's. Normal sensation to light touch in the right lower extremity. Distal pulse present in the right lower extremity. SKIN: Warm, dry and intact. NEUROLOGIC: Nonfocal. No deficits noted. PSYCHIATRIC: Alert and oriented x3. Appropriate mood and affect. GENERAL: Pleasant, NAD. HEENT: NC /AT. EOMI. PERRLA. Ears and nose patent without discharge. Oropharynx is clear. NECK: Nontender to palpation. Full range of motion. VITAL SIGNS: Stable. RADIOGRAPHS: X-rays are reviewed of the right knee and show mild osteoarthritis. IMPRESSION: Right knee effusion. Rule out gout versus infection. PLAN: Patient was seen and examined by me, along with Dr. Ray. We did discuss with the patient that we would move forward with a right knee aspiration. All the risks, benefits, complications were explained to the patient. Under sterile condition, the right knee was prepped, and 50 cc of clear yellow synovial-like fluid was aspirated from the right knee. Patient tolerated procedure well and a Band-Aid was applied. 10 cc was sent for Gram stain, anaerobic and aerobic culture, cell count, crystals. Patient did state that after the aspiration, his knee did feel better. All questions were answered to the patient's satisfaction. Will follow up with results once they are complete. /[id number]/MODL MTDD
[2017-02-08 04:46] LABS: HEMATOCRIT 27.8 % (40.0-51.0); HEMOGLOBIN 8.7 g/dL (13.7-17.5); MEAN CELL HEMOGLOBIN CONCENTR. 31.3 g/dL (32.4-36.7); MEAN CELL VOLUME 92.7 fL (81.5-99.8); RED CELL DISTRIBUTION WIDTH 18.2 % (11.5-15.2)
[2017-02-08 05:07] LABS: ANION GAP 12 mEq/L (8-16); CALCIUM 8.5 mg/dL (8.5-10.4); CARBON DIOXIDE 23 mEq/l (22-31); CHLORIDE 107 mEq/L (97-110); CREATININE 1.7 mg/dL (0.7-1.3); GLOMERULAR FILTRATION RATE 38; GLUCOSE 91 mg/dL (70-100); POTASSIUM 4.6 mEq/L (3.5-5.2); SODIUM 142 mEq/L (134-144)
[2017-02-08] MEDS: NEBIVOLOL HCL 5 MG TAB PO SCH (07:55)
[2017-02-08] MEDS: ISOSORBIDE DINITRATE 10 MG TAB PO SCH ×3 (07:56→16:03)
[2017-02-08] MEDS: predniSONE 5 MG TAB PO SCH (07:56)
[2017-02-08] MEDS: SENNOSIDES/DOCUSATE SODIUM TAB PO SCH ×2 (07:56→20:22)
[2017-02-08] MEDS: ALLOPURINOL 100 MG TAB PO SCH (07:56)
[2017-02-08] MEDS: POLYETHYLENE GLYCOL 3350 17 GM PKT PO PRN (07:57)
--- NOTE | 2017-02-08 08:28 | HOSPPROG ---
Hospitalist Progress Note Assessment/Plan: #Acute blood loss anemia: hematuria nearly resolved. Hold ASA/Plavix. 1 unit RBC 02/06. #Acute on chronic hypoxemic resp failure: resolved. Due to being off pred/ inhalers.CXR stable #Accelerated HTN: better-controlled back on home meds #CAD: not candidate for surgery or cath. Patient does not want to restart ASA/ Plavix understanding the risks for thrombosis with recent stents in June #Indeterminate trop: suspect demand with surgery, acute hypoxia. No CP. Cont medical management #Bladder mass: s/p resection. CBI stopped, now voiding #Gout: renally-dose allopurinol #SADE on CKD: improved with blood and small IVFs #Right suprapatellar effusion: concern for gout. Painful h/o gout. Ortho to tap. #Leukocytosis: stable. Afebrile. May be due to steroids #Normocytic anemia: some drop since surgery. Will monitor closely #Diet: cardiac #Deconditioning: cannot manage sarabia alone. PT evaluating, CM to assist with placement #Disp: cont inpatient admission. IF H/H stable can DC tomorrow Subjective: no CP or SOB. Hematuria nearly resolved Objective: Vital Signs Temp Pulse Resp BP Pulse Ox 36.3 C 68 18 147/70 H 94 02/08/17 08:00 02/08/17 08:00 02/08/17 08:00 02/08/17 08:00 02/08/17 08:00 Microbiology 02/07/17 18:15 Gram Stain - Final Knee - Aspirate Laboratory Results 02/08/17 03:43 02/08/17 03:43 02/07/17 02/08/17 02/09/17 05:59 05:59 05:59 Intake Total 950 400 Output Total 2974 7146 Balance -8983 -0553 - Physical Exam Constitutional: no apparent distress Eyes: PERRL Ears, Nose, Mouth, Throat: moist mucous membranes, hearing normal ICD10 Worksheet Patient Problems: Problems Problem Status Onset Bladder cancer Acute Acute respiratory failure Acute COPD (chronic obstructive pulmonary disease) Acute Cardiac arrest Acute Chronic Disease Mgmt/Transitional Care Acute Hypoxemia Acute Pneumonia Acute Shortness of breath Acute Urinary tract infection Acute
--- NOTE | 2017-02-08 08:57 | SOAPPROG ---
SOAP Progress Note Assessment/Plan: Assessment: right knee pain/effusion Plan: F/U on final cultures/crystals WBAT RLE Ice to right knee, elevation Activities as tolerated Ortho to follow Subjective: Patient is one day out from a right knee aspiration that was sent for cultures, gram stain, cell count, crystals. He is laying in bed and states his knee feels better and has minimal pain. Objective: Vital Signs Temp Pulse Resp BP Pulse Ox 36.3 C 68 18 147/70 H 94 02/08/17 08:00 02/08/17 08:00 02/08/17 08:00 02/08/17 08:00 02/08/17 08:00 Microbiology 02/07/17 18:15 Gram Stain - Final Knee - Aspirate Laboratory Results 02/08/17 03:43 02/08/17 03:43 02/07/17 02/08/17 02/09/17 05:59 05:59 05:59 Intake Total 950 400 Output Total 5290 9187 Balance -4340 -6109 Physical exam of the right knee: there is no effusion, erythema, ecchymosis or calor present. There is minimal to no pain with ROM. Normal sensation to light touch in the RLE. Distal pulse present in the RLE. ICD10 Worksheet Patient Problems: Problems Problem Status Onset Bladder cancer Acute Acute respiratory failure Acute COPD (chronic obstructive pulmonary disease) Acute Cardiac arrest Acute Chronic Disease Mgmt/Transitional Care Acute Hypoxemia Acute Pneumonia Acute Shortness of breath Acute Urinary tract infection Acute
--- NOTE | 2017-02-08 13:47 | SOAPPROG ---
SOAP Progress Note Assessment/Plan: Assessment: Post op TURBT Clot retention Plan: Catheter pulled. Will send patient home if he can void. If not, will arrange clot evacuation tomorrow. 02/08/17 13:47 Subjective: no bladder pain Objective: Vital Signs Temp Pulse Resp BP Pulse Ox 36.6 C 60 16 127/53 H 94 02/08/17 12:00 02/08/17 12:00 02/08/17 12:00 02/08/17 12:00 02/08/17 12:00 Microbiology 02/07/17 18:15 Gram Stain - Final Knee - Aspirate Laboratory Results 02/08/17 03:43 02/08/17 03:43 02/07/17 02/08/17 02/09/17 05:59 05:59 05:59 Intake Total 950 400 Output Total 5270 4092 Balance -4344 -2783 Physical Exam - Physical Exam General Appearance: alert, no apparent distress Respiratory: normal breath sounds, No respiratory distress Skin: normal color Neuro/Psych: no motor/sensory deficits ICD10 Worksheet Patient Problems: Problems Problem Status Onset Bladder cancer Acute Acute respiratory failure Acute COPD (chronic obstructive pulmonary disease) Acute Cardiac arrest Acute Chronic Disease Mgmt/Transitional Care Acute Hypoxemia Acute Pneumonia Acute Shortness of breath Acute Urinary tract infection Acute
[2017-02-08] MEDS: ATORVASTATIN CALCIUM 40 MG TAB PO SCH (20:22)
[2017-02-09 05:17] LABS: HEMATOCRIT 24.5 % (40.0-51.0); HEMOGLOBIN 7.7 g/dL (13.7-17.5); MEAN CELL HEMOGLOBIN 28.8 pg (27.9-34.1); MEAN CELL HEMOGLOBIN CONCENTR. 31.4 g/dL (32.4-36.7); MEAN CELL VOLUME 91.8 fL (81.5-99.8); RED BLOOD CELL COUNT 2.67 10^6/uL (4.40-6.38); RED CELL DISTRIBUTION WIDTH 17.8 % (11.5-15.2)
[2017-02-09 05:31] LABS: ANION GAP 10 mEq/L (8-16); CALCIUM 8.1 mg/dL (8.5-10.4); CARBON DIOXIDE 22 mEq/l (22-31); CHLORIDE 108 mEq/L (97-110); CREATININE 1.6 mg/dL (0.7-1.3); GLOMERULAR FILTRATION RATE 41; GLUCOSE 80 mg/dL (70-100); POTASSIUM 4.8 mEq/L (3.5-5.2); SODIUM 140 mEq/L (134-144)
--- NOTE | 2017-02-09 07:06 | SOAPPROG ---
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, no hydronephrosis on sonogram Plan: disposition per hospitalist 02/09/17 07:05 Objective: Vital Signs Temp Pulse Resp BP Pulse Ox 36.4 C 66 16 157/75 H 96 02/09/17 04:00 02/09/17 04:00 02/09/17 04:00 02/09/17 04:00 02/09/17 04:00 Laboratory Results 02/09/17 04:07 02/09/17 04:07 02/08/17 02/09/17 02/10/17 05:59 05:59 05:59 Intake Total 400 250 Output Total 9994 797 Balance -9784 -028 ICD10 Worksheet Patient Problems: Problems Problem Status Onset Bladder cancer Acute Acute respiratory failure Acute COPD (chronic obstructive pulmonary disease) Acute Cardiac arrest Acute Chronic Disease Mgmt/Transitional Care Acute Hypoxemia Acute Pneumonia Acute Shortness of breath Acute Urinary tract infection Acute - ICD10 Problem Qualifiers (1) Bladder cancer
[2017-02-09] MEDS: SENNOSIDES/DOCUSATE SODIUM TAB PO SCH (07:17)
[2017-02-09] MEDS: NEBIVOLOL HCL 5 MG TAB PO SCH (07:18)
[2017-02-09] MEDS: ALLOPURINOL 100 MG TAB PO SCH (07:19)
[2017-02-09] MEDS: ISOSORBIDE DINITRATE 10 MG TAB PO SCH ×3 (07:19→15:14)
[2017-02-09] MEDS: POLYETHYLENE GLYCOL 3350 17 GM PKT PO PRN (07:21)
[2017-02-09 07:29] VITALS: PULSE 72
--- NOTE | 2017-02-09 08:12 | SOAPPROG ---
SOAP Progress Note Assessment/Plan: Assessment: right knee pain/effusion Plan: Right knee aspiration: positive for crystals/gout WBAT RLE Ice to right knee, elevation Activities as tolerated Ortho to sign off Subjective: Patient is 2 days status post right knee aspiration. He states his right knee is still painful but feeling better since the aspiration. Objective: Vital Signs Temp Pulse Resp BP Pulse Ox 36.5 C 72 24 H 179/80 H 90 L 02/09/17 07:27 02/09/17 07:27 02/09/17 07:27 02/09/17 07:27 02/09/17 07:27 Laboratory Results 02/09/17 04:07 02/09/17 04:07 02/08/17 02/09/17 02/10/17 05:59 05:59 05:59 Intake Total 400 250 Output Total 8908 873 Balance -6711 -431 Physical exam of the right knee there is no effusion, no erythema, no ecchymosis. No pain with ROM. Normal sensation to light touch in the RLE. Distal pulse present in the RLE. ICD10 Worksheet Patient Problems: Problems Problem Status Onset Bladder cancer Acute Acute respiratory failure Acute COPD (chronic obstructive pulmonary disease) Acute Cardiac arrest Acute Chronic Disease Mgmt/Transitional Care Acute Hypoxemia Acute Pneumonia Acute Shortness of breath Acute Urinary tract infection Acute
[2017-02-09] MEDS ORDERED: predniSONE 20 MG TAB PO SCH (09:00)
[2017-02-09] MEDS: HYDROCODONE/APAP 5/325 TAB PO PRN (09:57)
--- NOTE | 2017-02-09 10:32 | HOSPPROG ---
Hospitalist Progress Note Assessment/Plan: #Acute blood loss anemia: hematuria nearly resolved. Hold ASA/Plavix. 1 unit RBC 02/06. H/H stable today #Acute on chronic hypoxemic resp failure: resolved. Due to being off pred/ inhalers.CXR stable #Accelerated HTN: better-controlled back on home meds #CAD: not candidate for surgery or cath. Patient does not want to restart ASA/ Plavix understanding the risks for thrombosis with recent stents in June. I had several conversations with he and his daughter. 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 No CP. Cont medical management #Bladder mass: s/p resection. CBI stopped, now voiding #Gout flare: pred. Restart allopurinolnol #SADE on CKD: improved with blood and small IVFs #Right suprapatellar effusion: concern for gout. Painful h/o gout. Ortho to tap. #Leukocytosis: stable. Afebrile. May be due to steroids #Normocytic anemia: some drop since surgery. Will monitor closely #Diet: cardiac #Deconditioning: cannot manage sarabia alone. PT evaluating, CM to assist with placement #Disp: DC to SNF today. Recommend palliative care consult Subjective: no CP or SOB. Urinating frequently Objective: Vital Signs Temp Pulse Resp BP Pulse Ox 36.5 C 72 24 H 179/80 H 90 L 02/09/17 07:27 02/09/17 07:27 02/09/17 07:27 02/09/17 07:27 02/09/17 07:27 Laboratory Results 02/09/17 04:07 02/09/17 04:07 02/08/17 02/09/17 02/10/17 05:59 05:59 05:59 Intake Total 400 250 Output Total 8099 874 Balance -0024 -006 - Physical Exam Constitutional: no apparent distress Eyes: PERRL Ears, Nose, Mouth, Throat: moist mucous membranes Cardiovascular: regular rate and rhythym, No edema Respiratory: other (decreased BS at bases. No crackles or wheezinf) Gastrointestinal: normoactive bowel sounds Genitourinary: no bladder fullness Skin: warm Musculoskeletal: full muscle strength Neurologic: AAOx3, CN II-XII Intact Psychiatric: interacting appropriately ICD10 Worksheet Patient Problems: Problems Problem Status Onset Bladder cancer Acute Acute respiratory failure Acute COPD (chronic obstructive pulmonary disease) Acute Cardiac arrest Acute Chronic Disease Mgmt/Transitional Care Acute Hypoxemia Acute Pneumonia Acute Shortness of breath Acute Urinary tract infection Acute
[2017-02-09 11:34] VITALS: BP 158/71; RESP 20; TEMP 98.2; O2SAT 98
[2017-02-09 11:38] LABS: HEMATOCRIT 25.3 % (40.0-51.0); HEMOGLOBIN 8.4 g/dL (13.7-17.5)
--- NOTE | 2017-02-09 13:25 | PDIAF ---
- Diagnosis Diagnosis: hematura, gout flare Code Status: Do Not Resuscitate - Medication Management Discharge Medications: Medications to Continue on Transfer Albuterol [Proventil Inhaler HFA (*)] 1 - 2 puffs IH DAILY PRN 07/03/16 [Last Taken 07/03/16] Nebivolol HCl [Bystolic] 10 mg PO DAILY 07/03/16 [Last Taken 02/02/17 09:00] Isosorbide Dinitrate [Isosorbide Dinitrate 10 mg (*)] 10 mg PO TIDNITRATE #0 tab 07/08/16 [Last Taken 02/02/17 09:00] Nitroglycerin [Nitrostat 0.4 mg (*)] 0.4 mg SL PRN PRN #0 btl 07/08/16 [Last Taken Unknown] Allopurinol [Allopurinol 300 MG (RX)] 300 mg PO DAILY 01/23/17 [Last Taken 02/02 09:00] Atorvastatin Calcium [Lipitor 40 mg (*)] 40 mg PO HS 01/23/17 [Last Taken 09:00] Potassium Cl [Klor-Con 20 meq (*)] 20 meq PO DAILY 01/23/17 [Last Taken 09:00] Torsemide [Demadex] 40 mg PO DAILY 01/23/17 [Last Taken 02/01/17] guaiFENesin [Mucinex 600 MG (*)] 600 mg PO DAILY PRN 01/23/17 [Last Taken Unknown] Acetaminophen [Tylenol 325mg (*)] 650 mg PO Q4HRS PRN tab 02/09/17 [Last Taken Unknown] Ipratropium/Albuterol [Duoneb (*)] 3 ml IH Q6HRS PRN deyvial 02/09/17 [Last Taken Unknown] Polyethylene Glycol 3350 [Miralax 17 gm (*)] 17 gm PO DAILY PRN pkt 02/09/17 [ Last Taken Unknown] predniSONE 5 mg PO DAILY #30 mg 02/09/17 [Last Taken 02/02/17 09:00] predniSONE 40 mg PO DAILY #4 tablet 02/09/17 [Last Taken Unknown] Discharge Medications: Refer to the Discharge Home Medication list for PRN reason. - Orders Services needed: Registered Nurse, Physical Therapy, Occupational Therapy Diet Recommendation: cardiac -low fat low salt Diet Texture: Regular Texture Diet Andersen: Yes Additional: Talk with patient about restarting ASA and Plavix, he is declining at this time. Recent cardiac stent June 2015 - Labs/Radiology CBC Date: 02/09/17 (hematuria after TURBT) - Follow Up Care Current Providers and Referrals: Sherwin Oro MD [Medical Doctor] - David Dalal MD [Primary Care Provider] -
--- NOTE | 2017-02-09 13:52 | GDS ---
[f rep st] DISCHARGE SUMMARY DISCHARGE DIAGNOSES: 1. Bladder tumors, status post transurethral prostatic resection. 2. Hematuria. 3. Coronary artery disease with percutaneous coronary intervention in June 2016. 4. Accelerated hypertension. 5. Acute on chronic hypoxemic respiratory failure. 6. Indeterminate troponin. 7. Gout flare. 8. Acute kidney injury on chronic kidney disease. 9. Right suprapatellar effusion. 10. Leukocytosis. 11. Normocytic anemia. 12. Acute blood loss anemia. HISTORY OF PRESENT ILLNESS: An 89-year-old male with history of coronary artery disease, chronic hypoxemic respiratory failure, bladder tumor, who underwent elective TURP by Dr. Oro on 02/01/2017. He was to be discharged , but then developed acute shortness of breath and accelerated hypertension, and was asked to be evaluated by the hospitalist service. He had been off his inhalers and prednisone, which likely contributed to this. HOSPITAL COURSE BY PROBLEM: 1. Acute blood loss anemia: due to hematuria associated with procedure and dual anti-platelet therapy. On continuous bladder irrigation for several days and now voiding on his own. Transfused 1 unit of blood. I had an extensive conversation with the patient about restarting his aspirin and Plavix. He is concerned and does not want to because he does not want recurrent clots. I explained the risk with recent stents that these could clot off. He fully understands this risk and opts not to be on the medications. I discussed this also with his daughter, and they will resume these conversations. 2. Acute on chronic hypoxemic respiratory failure: This was secondary to being off his prednisone inhalers. His x-ray is stable. 3. Accelerated hypertension: This is, at the time of my evaluation, improved with his home medications. 4. Coronary artery disease: He was deemed not a candidate for surgery or recurrent catheterization. He had stents recently in June 2016. Again, he does not want to restart aspirin and Plavix. I did emphasize the risk of in- stent thrombosis. He will need to follow up with the group dynamics instructor. 5. Indeterminate troponin: due to demand with surgery. No CP. RBBB is old. Continue medical management, as he is not a good candidate for catheterization. 6. Bladder mass: s/p TURP: Underwent continuous bladder or bladder irrigation. Now voiding. 7. Gout flare: crystals on tap. Pred burst, no NSAIDs with CKD. 8. Acute kidney injury on chronic kidney disease: improved with blood and small IV fluids. He is now at baseline. 9. Leukocytosis, likely stress inflammation: Afebrile. No evidence of infection. 10. History of chronic obstructive pulmonary disease, asbestosis: X-ray stable. Resume home inhalers and prednisone. 11. History of right bundle branch block: This is stable. 12. Compensated systolic heart failure: EF is 40% on last echo. He did not have evidence of volume overload here. He resumed his beta karo and diuretic. Not on Faustino with CKD. DISPOSITION: The patient is stable for discharge to rehab. FOLLOWUP: 1. Dr. Oro as scheduled. 2. Continue conversations in regard to his aspirin and Plavix given recent cardiac stents. MEDICATIONS: 1. Prednisone 40 mg through 02/13/2017 for gout flare, then put back on his home dose of 5 mg thereafter. 2. Determine if the patient wants to restart aspirin and Plavix for recent cardiac stents. Time spent on DC: 60min counseling patient and daughter on goals, medications and coordination of discharge. /[id number]/MODL MTDD
--- NOTE | 2017-02-09 13:53 | ASMTCMCOM ---
CM Note CM Note Notes: Pt will dc today to [facility]. Met w/pt to discuss; he is in agreement w/dc poc. Notified Helen at [facility] and they are ready to accept. Orders/info sent through [employer].. Vicky Zavala notified. D/W RN and MD. Pt will be picked up by [facility] van at 3 PM. Date Signed: 02/09/2017 01:52 PM Electronically Signed By:Ela Guzman RN
--- NOTE | 2017-02-09 14:59 | SOAPPROG ---
SOAP Progress Note Assessment/Plan: Assessment: Post op TURBT Clot retention Plan: DC to SNF. Followup in 3 weeks in office. 02/09/17 14:58 Subjective: Voiding small amounts of urine that is not frankly bloody and without clots. Objective: Vital Signs Temp Pulse Resp BP Pulse Ox 36.8 C 72 20 158/71 H 98 02/09/17 11:32 02/09/17 07:27 02/09/17 11:32 02/09/17 11:32 02/09/17 11:32 Microbiology 02/07/17 18:15 Gram Stain - Final Knee - Aspirate Laboratory Results 02/09/17 11:25 02/09/17 04:07 02/08/17 02/09/17 02/10/17 05:59 05:59 05:59 Intake Total 400 250 Output Total 8558 157 Balance -5173 -323 Physical Exam - Physical Exam General Appearance: alert, no apparent distress Respiratory: normal breath sounds Skin: normal color Neuro/Psych: no motor/sensory deficits ICD10 Worksheet Patient Problems: Problems Problem Status Onset Bladder cancer Acute Acute respiratory failure Acute COPD (chronic obstructive pulmonary disease) Acute Cardiac arrest Acute Chronic Disease Mgmt/Transitional Care Acute Hypoxemia Acute Pneumonia Acute Shortness of breath Acute Urinary tract infection Acute
== END 2017-02-09 15:55 | DRG 668 ==
LOC: F3E 09:49 → F1N 15:04 → F2W 02-03 20:20 → OBSVTOIN 02-04 18:40
PROVIDERS: ADMIT Specialist; ATTEND Specialist
PROC: 0TBB8ZX Excision of Bladder, Via Natural or Artificial Opening Endoscopic, Diagnostic (ICD-10-PCS; principal; 2017-02-04)
PROC: 30233N1 Transfusion of Nonautologous Red Blood Cells into Peripheral Vein, Percutaneous Approach (ICD-10-PCS; 2017-02-06)
PROC: 0Y9F3ZX Drainage of Right Knee Region, Percutaneous Approach, Diagnostic (ICD-10-PCS; 2017-02-07)
DX: C67.0 Malignant neoplasm of trigone of bladder (principal); R31.9 Hematuria, unspecified; D62 Acute posthemorrhagic anemia; M25.461 Effusion, right knee; J96.21 Acute and chronic respiratory failure with hypoxia; N17.9 Acute kidney failure, unspecified; M10.9 Gout, unspecified; I50.20 Unspecified systolic (congestive) heart failure; I13.0 Hypertensive heart and chronic kidney disease with heart failure and stage 1 through stage 4 chronic kidney disease, or unspecified chronic kidney disease; N18.9 Chronic kidney disease, unspecified; I25.10 Atherosclerotic heart disease of native coronary artery without angina pectoris; J44.9 Chronic obstructive pulmonary disease, unspecified; Z95.5 Presence of coronary angioplasty implant and graft; I25.2 Old myocardial infarction; Z87.891 Personal history of nicotine dependence
CPT/HCPCS: 97116-GP; 97162-GP; 97165-GO; 97530-GO; 97530-GP; 97535-GO; G8978-GP-CJ; G8979-GP-CI; G8987-GO-CI; G8988-GO-CI; J0690; J2704; J3010; J3490; P9016

== ENCOUNTER → 2017-04-07 | Outpatient (CLI) | payer OTHER | LOC: FIMAGING 08:30 | PROVIDERS: ATTEND Specialist | DX: R31.0 Gross hematuria (principal); R39.15 Urgency of urination; R10.9 Unspecified abdominal pain; R91.8 Other nonspecific abnormal finding of lung field; Z85.51 Personal history of malignant neoplasm of bladder; Z77.090 Contact with and (suspected) exposure to asbestos ==

== ENCOUNTER 2017-04-30 18:58 | Inpatient (IN) | payer OTHER ==
--- NOTE | 2017-04-30 18:58 | EDPHY ---
H & P HPI/ROS: CHIEF COMPLAINT: Pneumonia HISTORY OF PRESENT ILLNESS: The patient is an 89 y/o male with a history of oxygen and steroid dependent COPD, coronary artery disease status post AR with stenting, CKD, and bladder cancer, complaining of worsening shortness of breath and weakness after being diagnosed with pneumonia. On , 3 days ago, he saw Dr. Dalal, his PCP , and was diagnosed with pneumonia and prescribed Augmentin. However, his symptoms have been worsening. He is normally on 5L of home oxygen, but this has not been sufficient. While en route to the ED he was given 15L of oxygen and began to feel better; his O2Sats increased from 86-99. Denies fever, sore throat , body aches or other pertinent symptoms. REVIEW OF SYSTEMS: A ten point review of systems was performed and is negative with the exception of the items mentioned in the HPI. Past medical history: 1. COPD 2. Coronary artery disease status post RCA stenting. Medical management management for residual LAD disease, as he is a poor surgical candidate 3. Bladder cancer 4. Chronic kidney disease 5. Asbestos lung disease 6. hypertension. 7. Gout Past surgical history: 1. Coronary artery disease status post stenting RCA June 2016 Family history: Denies Social history: Family at bedside, lives in [place], retired General Appearance: Alert. Vital signs reviewed. Afebrile. Heart rate 63. Saturation high 90s on 10 L nasal cannula oxygen. Eyes: Pupils equal and round, no conjunctival injection, no discharge. Anicteric. ENT, Mouth: Mucous membranes are moist, no oropharyngeal erythema or edema. Neck: No lymphadenopathy, supple. Trachea midline. Respiratory: Bilateral rales with scattered wheezes. Cardiovascular: Regular rate and rhythm; no murmur, rub, or gallop. Gastrointestinal: Abdomen is soft and nontender, no masses or organomegaly, bowel sounds normal. Skin: Warm and dry, no rashes on exposed skin, normal color. Back: Nontender to palpation over the thoracolumbar spine. No CVAT. Extremities: No lower extremity edema, no calf tenderness or swelling. Neurological: Alert and oriented. Moving all four extremities easily and equally. Psychiatric: Normal affect. Constitutional: Initial Vital Signs Temperature (C) 36.8 C 04/30/17 19:08 Heart Rate 74 04/30/17 19:08 Respiratory Rate 30 H 04/30/17 19:08 Blood Pressure 170/77 H 04/30/17 19:08 O2 Sat (%) 80 L 04/30/17 19:08 O2 Delivery Mode Room Air O2 (L/minute) 10 Allergies/Adverse Reactions: No Known Allergies Allergy (Verified 04/30/17 19:08) Home Medications: Medication Instructions Recorded Albuterol [Proventil Inhaler HFA 1 - 2 puffs IH DAILY PRN 07/03/16 (*)] Nebivolol HCl [Bystolic] 10 mg PO DAILY 07/03/16 Isosorbide Dinitrate [Isosorbide 10 mg PO TIDNITRATE #0 tab 07/08/16 Dinitrate 10 mg (*)] Nitroglycerin [Nitrostat 0.4 mg 0.4 mg SL PRN PRN #0 btl 07/08/16 (*)] Allopurinol [Allopurinol 300 MG 300 mg PO DAILY 01/23/17 (RX)] Atorvastatin Calcium [Lipitor 40 40 mg PO DAILY 01/23/17 mg (*)] Potassium Cl [Klor-Con 20 meq (*)] 20 meq PO DAILY 01/23/17 Torsemide [Demadex] 40 mg PO DAILY 01/23/17 predniSONE 5 mg PO DAILY #30 mg 02/09/17 Amoxicillin/Clavulanate Pot 875 mg PO BID 04/30/17 [Augmentin 875 MG TAB (*)] Aspirin EC [Aspirin EC 81 mg (*)] 81 mg PO DAILY 04/30/17 Clopidogrel Bisulfate [Plavix (*)] 75 mg PO DAILY 04/30/17 Melatonin [Melatonin 3 MG (*)] 3 mg PO HS PRN 04/30/17 Medical Decision Making - Diagnostics Imaging Results: Imaging Impressions Chest X-Ray 04/30/17 19:09 Impression: Bilateral diffuse pulmonary parenchymal fibrosis, COPD, with possible superimposed bibasilar pneumonitis. Imaging: I viewed and interpreted images myself ED Course/Re-evaluation: The patient is an 89 y/o male with a history of COPD, asbestosis, and coronary artery disease presenting with worsening shortness of breath and weakness after being diagnosed with pneumonia on , 3 days ago. He is taking Augmentin. Chest x-ray is abnormal, as would be expected with his asbestos lung disease. It is difficult to determine whether not there is an infiltrate present. BUN is 101 with a creatinine of 3, indicative of acute kidney injury. He has a history of chronic kidney disease that these numbers are markedly worse than usual. 1940: Consulted with hospitalist service, Dr. Romo accepts admission of this patient. DuoNeb and 125mg IV Solu-Medrol administered for COPD exacerbation. 1945: Patient's troponin is 0.084, intermediate value. He has had intermediate troponins in the past. 2004: D-dimer is elevated 2.5. Given his kidney function he cannot undergo chest CT angiogram with contrast. I note that he has had elevated D-dimer in the past also, as high as 7. 2030: 1gm IV Rocephin administered for treatment of presumed pneumonia, community-acquired 2099: Azithromycin administered, for treatment of presumed pneumonia, community acquired Acute on chronic respiratory failure in patient with oxygen and steroid- dependent COPD and now likely pneumonia. He received a DuoNeb and steroids in the emergency department for treatment of COPD exacerbation and antibiotics for treatment of pneumonia. Respiratory pathogen PCR sent along with procalcitonin. He reports a history of diarrhea but has not had diarrhea in the emergency department. Worsening renal function in the setting of bladder cancer and intravesicular treatments. Differential Diagnosis: Shortness of breath including but not limited to pulmonary infectious process, COPD, asthma, pulmonary embolus and congestive heart failure. - Data Points Laboratory Results: Laboratory Results 04/30/17 18:58 04/30/17 18:58 04/30/17 04/30/17 04/30/17 18:58 18:58 18:58 WBC RBC Hgb Hct MCV MCH MCHC RDW Plt Count MPV Neut % (Auto) Lymph % (Auto) Webster % (Auto) Eos % (Auto) Baso % (Auto) Nucleat RBC Rel Count Absolute Neuts (auto) Absolute Lymphs (auto) Absolute Monos (auto) Absolute Eos (auto) Absolute Basos (auto) Absolute Nucleated RBC Immature Gran % Immature Gran # D-Dimer 2.55 ug/mLFEU H ug/mLFEU (0.00-0.50) Sodium Potassium Chloride Carbon Dioxide Anion Gap BUN Creatinine Estimated GFR Glucose Calcium Troponin I NT-Pro-B Natriuret Pep 3140 pg/mL H pg/mL (0-450) Procalcitonin 0.89 ng/mL H ng/mL (0.02-0.10) 04/30/17 04/30/17 18:58 18:58 WBC 20.81 10^3/uL H 10^3/uL (3.80-9.50) RBC 3.85 10^6/uL L 10^6/uL (4.40-6.38) Hgb 11.2 g/dL L g/dL (13.7-17.5) Hct 34.2 % L % (40.0-51.0) MCV 88.8 fL fL (81.5-99.8) MCH 29.1 pg pg (27.9-34.1) MCHC 32.7 g/dL g/dL (32.4-36.7) RDW 17.3 % H % (11.5-15.2) Plt Count 321 10^3/uL 10^3/uL (150-400) MPV 10.2 fL fL (8.7-11.7) Neut % (Auto) 89.9 % H % (39.3-74.2) Lymph % (Auto) 5.0 % L % (15.0-45.0) Webster % (Auto) 3.8 % L % (4.5-13.0) Eos % (Auto) 0.0 % L % (0.6-7.6) Baso % (Auto) 0.1 % L % (0.3-1.7) Nucleat RBC Rel Count 0.0 % % (0.0-0.2) Absolute Neuts (auto) 18.70 10^3/uL H 10^3/uL (1.70-6.50) Absolute Lymphs (auto) 1.05 10^3/uL 10^3/uL (1.00-3.00) Absolute Monos (auto) 0.79 10^3/uL 10^3/uL (0.30-0.80) Absolute Eos (auto) 0.00 10^3/uL L 10^3/uL (0.03-0.40) Absolute Basos (auto) 0.02 10^3/uL 10^3/uL (0.02-0.10) Absolute Nucleated RBC 0.00 10^3/uL 10^3/uL (0-0.01) Immature Gran % 1.2 % H % (0.0-1.1) Immature Gran # 0.25 10^3/uL H 10^3/uL (0.00-0.10) D-Dimer Sodium 139 mEq/L mEq/L (134-144) Potassium 5.0 mEq/L mEq/L (3.5-5.2) Chloride 99 mEq/L mEq/L (97-110) Carbon Dioxide 23 mEq/l mEq/l (22-31) Anion Gap 17 mEq/L H mEq/L (8-16) BUN 101 mg/dL H* mg/dL (7-23) Creatinine 3.0 mg/dL H mg/dL (0.7-1.3) Estimated GFR 20 Glucose 230 mg/dL H mg/dL (70-100) Calcium 8.8 mg/dL mg/dL (8.5-10.4) Troponin I 0.084 ng/mL H ng/mL (0.000-0.034) NT-Pro-B Natriuret Pep Procalcitonin Medications Given: Albuterol/Ipratropium (Duoneb) 3 ml IH Q6 ERVIN Stop: 10/28/17 00:00 Last Admin: 04/30/17 23:03 Dose: 3 ml Heparin Sodium (Porcine) (Heparin Sc Injection) 5,000 unit SC Q8 ERVIN Stop: 10/27/17 21:59 Last Admin: 04/30/17 22:50 Dose: 5,000 unit Melatonin (Melatonin) 3 mg PO HS PRN PRN Reason: Sleep/Insomnia Stop: 10/27/17 21:11 Last Admin: 04/30/17 22:50 Dose: 3 mg Discontinued Medications Albuterol/Ipratropium (Duoneb) 3 ml IH EDNOW ONE Stop: 04/30/17 19:40 Last Admin: 04/30/17 19:46 Dose: 3 ml Azithromycin 500 mg/ Dextrose 255 mls @ 255 mls/hr IV EDNOW ONE PRN Reason: Protocol Stop: 04/30/17 21:00 Last Admin: 04/30/17 20:26 Dose: 255 mls Ceftriaxone Sodium/Dextrose (Rocephin 1 Gm (Premix)) 50 mls @ 100 mls/hr IV EDNOW ONE PRN Reason: Protocol Stop: 04/30/17 20:30 Last Admin: 04/30/17 20:17 Dose: 50 mls Methylprednisolone Sodium Succinate (Solu-Medrol) 125 mg IVP EDNOW ONE Stop: 04/30/17 19:40 Last Admin: 04/30/17 19:46 Dose: 125 mg Departure - Departure Disposition: [facility] Inpatient Acute Clinical Impression: Chronic obstructive pulmonary disease with acute exacerbation Pneumonia Qualifiers: Pneumonia type: due to unspecified organism Laterality: unspecified laterality Lung location: unspecified part of lung Qualified Code(s): J18.9 - Pneumonia, unspecified organism Condition: Fair Report Scribed for: Briana Jaramillo Report Scribed by: Shandra Casillas Date of Report: 04/30/17 Time of Report: 19:08 Physician Review and Approval Statement: 04/30/17 18:58 Portions of this note were transcribed by the bilingual medical receptionist. I, Dr. Briana Jaramillo, personally performed the history, physical exam, and medical decision- making; and confirmed the accuracy of the information in the transcribed note.
--- NOTE | 2017-04-30 19:13 | CPEKG ---
Heart Rate: 65 RR Interval: 923 P-R Interval: 156 QRSD Interval: 152 QT Interval: 452 QTC Interval: 470 P Newport: 62 QRS Newport: 96 T Wave Newport: 265 EKG Severity - ABNORMAL ECG - EKG Impression: SINUS RHYTHM EKG Impression: PROBABLE LEFT ATRIAL ABNORMALITY EKG Impression: RBBB AND LPFB EKG Impression: BORDERLINE INFERIOR Q WAVES EKG Impression: BORDERLINE ST DEPRESSION, LATERAL LEADS Electronically Signed By: Brinaa Jaramillo 30-Apr-2017 23:32:42
[2017-04-30 19:18] LABS: PLATELET COUNT 321 10^3/uL (150-400)
[2017-04-30] MEDS ORDERED: methylPREDNISolone SOD SUCC 125 MG/2 ML VIAL IVP ONE (19:39)
[2017-04-30] MEDS ORDERED: IPRATROPIUM/ALBUTEROL 3 ML DEYVIAL IH ONE (19:39)
[2017-04-30] MEDS ORDERED: AZITHROMYCIN IV 500 MG in D5W 250 ML IV ONE (20:01)
[2017-04-30] MEDS ORDERED: NS 1,000 ML IV SCH (21:15)
[2017-04-30] MEDS ORDERED: ACETAMINOPHEN 325 MG TAB PO PRN (21:20)
[2017-04-30] MEDS ORDERED: ONDANSETRON 4 MG/2 ML VIAL IVP PRN (21:20)
[2017-04-30] MEDS ORDERED: HYDROmorphONE/DILAUDID 1 MG/ML INJ IVP PRN (21:20)
--- NOTE | 2017-04-30 22:39 | GHP ---
[f rep st] HISTORY AND PHYSICAL DATE OF ADMISSION: 04/30/2017 CHIEF COMPLAINT: 1. Shortness of breath. 2. Weakness. HISTORY: The patient is an 89-year-old male who has been sick since before [place]. He thought he had bronchitis. He has not had any fever. He has had a cough with worsening phlegm. [facility] and was prescribed Augmentin for probable pneumonia. Despite taking the oral Augmentin for 3 days, he continues to worsen. His baseline oxygen requirement is 4 L, and his daughter put it up to 5 L, and today he was so much worse they called EMS and he was put on 15 L. He also complains of abdominal pain and diarrhea for the last month. He had a CT scan done by Dr. Yossi west 2 weeks ago. He has had decreased p.o. intake and decreased appetite. He denies any chest pain. He has had shortness of breath. There has been no lower extremity edema. He has been in bed continu ously since night and is getting weaker. PAST MEDICAL HISTORY: 1. 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 2. Bladder cancer, status post TURBT, now getting intravesicular cancer treatments with Dr. Oro. 3. Coronary artery disease, status post stent to the right coronary artery in June 2016 with residu al significant LAD disease for which CT surgery was indicated. However, he was evaluated and felt by Surgery to be a poor candidate, so he is currently on medical management. 4. Hypertension. 5. Gout. 6. Chronic kidney disease, baseline creatinine 1.6. MEDICATIONS: Please see computer record for a full, detailed list. ALLERGIES: No known drug allergies. SOCIAL HISTORY: Quit smoking 25 years ago. He drinks very little alcohol. He lives alone. COR sta tus is DNR. REVIEW OF SYSTEMS: A complete review of systems was obtained. Review of systems was negative regard ing constitutional, HEENT, GI, pulmonary, cardiovascular, , hematology, skin, musculoskeletal, endo crine, psych, except for positive and negatives as under HPI. FAMILY HISTORY: Reviewed. Noncontributory to presenting complaint. PHYSICAL EXAMINATION: GENERAL: A well-developed, well-nourished male, in no acute distress. VITAL SIGNS: Temperature is 36.8, pulse 63, blood pressure 131/71, saturating 100% on 10 L. HEENT: Eye e xamination: Normal conjunctivae, pupils equal and reactive to light. ENT: Normal ears and nose. H earing intact. Normal lips and teeth. Oropharynx is moist. NECK: Trachea midline. No thyromegaly . CHEST: Normal respiratory effort. LUNGS: Bilateral wheezing and rhonchi. CARDIOVASCULAR: Regu lar rate and rhythm. No murmur. No lower extremity edema. ABDOMEN: Soft, nontender. No hepatospl enomegaly. SKIN: Warm, dry, intact. No rash. MUSCULOSKELETAL: No cyanosis or clubbing. Strength is 5/5 in upper and lower extremities. NEUROLOGIC: Cranial nerves intact. Normal sensation to lig ht touch. PSYCHIATRIC: Alert and oriented x3. Normal affect. Normal judgment. Normal memory. LABORATORY DATA: White count 20.8, hematocrit 34.2, platelets 321. Sodium 139, potassium 5.0, chlor rosalba 99, bicarb 23, BUN 101, creatinine 3.0, glucose 230. Troponin is 0.084. Procalcitonin 0.8. D-di apple is 2.5. BNP is 3140. EKG viewed by me: My personal interpretation is normal sinus rhythm, right bundle branch block, late ral ST depressions. Chest x-ray shows diffuse fibrosis, COPD, and possible pneumonitis. Old medical record review: I looked at the CT scan done April [address] Oro: While t he bladder was relatively unremarkable, there were some changes on the lower lung bases consistent wi th possible development of mesothelioma. ASSESSMENT AND PLAN: 1. Uaksv-zs-brlarcr respiratory failure. Baseline is 4 L. This is likely due to a combination of c hronic obstructive pulmonary disease exacerbation and pneumonia. 2. Chronic obstructive pulmonary disease exacerbation. Will continue steroids and nebulizers. 3. Probable pneumonia. IV ceftriaxone and azithromycin. 4. Axsqp-og-ekgdgag renal failure. Baseline creatinine 1.6. Will check a renal ultrasound, as he i s currently getting intravesicular treatments for bladder cancer with Dr. Oro. Need to rule out ob struction. Will hydrate with IV fluids. 5. Asbestosis. He had a CT scan of the abdomen 3 weeks ago which showed changes in the lung bases c onsistent with possible development of mesothelioma. Will check a dedicated CT chest. 6. Diarrhea. Will check a gastrointestinal panel with polymerase chain reaction. 7. Bladder cancer on localized intravesicular treatments with Dr. Oro which he is tolerating witho ut difficulty. 8. Coronary artery disease, status post stents, right coronary artery in June 2016. Continue aspir in and Plavix. Significant residual left anterior descending lesion for which CT surgery is indicate d, but he is too poor of a candidate, so currently on medical management only. Will follow troponins . However, I do not think that, given history above, intervention is not an option, and would contin ue medications. COR STATUS: DNR. ADMISSION STATUS: Will admit to inpatient. He is medically complex. Anticipate greater than 2 midn ights. DVT PROPHYLAXIS: He is high risk. Will place him on subcu heparin. /[id number]/MODL
[2017-04-30] MEDS: MELATONIN 3 MG TAB PO PRN (22:50)
[2017-04-30] MEDS: HEPARIN 5,000 UNIT/0.5 ML SYR SC SCH (22:50)
[2017-04-30] MEDS: IPRATROPIUM/ALBUTEROL 3 ML DEYVIAL IH SCH (23:03)
[2017-05-01] MEDS: IPRATROPIUM/ALBUTEROL 3 ML DEYVIAL IH SCH ×4 (05:09→21:31)
[2017-05-01 05:16] LABS: PLATELET COUNT 268 10^3/uL (150-400)
[2017-05-01] MEDS ORDERED: predniSONE 20 MG TAB PO SCH ×2 (09:00→14:11)
[2017-05-01] MEDS ORDERED: ALLOPURINOL 300 MG TAB PO SCH (09:00)
[2017-05-01] MEDS: ISOSORBIDE DINITRATE 10 MG TAB PO SCH ×3 (12:10→16:58)
[2017-05-01] MEDS: OSELTAMIVIR 6 MG/ML UDSYR PO SCH ×2 (12:17→16:58)
[2017-05-01] MEDS: NEBIVOLOL HCL 5 MG TAB PO SCH (12:18)
[2017-05-01] MEDS: ATORVASTATIN CALCIUM 40 MG TAB PO SCH (12:19)
[2017-05-01] MEDS: HEPARIN 5,000 UNIT/0.5 ML SYR SC SCH ×3 (12:19→22:18)
[2017-05-01] MEDS: CLOPIDOGREL BISULFATE 75 MG TAB PO SCH (12:19)
[2017-05-01] MEDS: ASPIRIN EC 81 MG TAB PO SCH (12:20)
[2017-05-01] MEDS: AZITHROMYCIN IV 500 MG in D5W 250 ML IV SCH (12:20)
--- NOTE | 2017-05-01 13:32 | PDMN ---
Medical Necessity Medical necessity: Pt meets IP criteria per MD; est los >2 mn for eval/tx of acute on chronic respiratory failure (likely due to a combination of COPD & probable pneumonia), Influenza A, possible Mesothelioma, acute on chronic renal failure & diarrhea; admit to Step Down Unit for further workup/close monitoring , cxs, IVFs, IV abx & therapies; hx bladder cancer, s/p TURBT (on intravesicular cancer treatments), CAD, s/p stent w/residual LAD disease, HTN, CKD, chronic respiratory failure r/t COPD & asbestos; per H&P & order 04/30/17
--- NOTE | 2017-05-01 13:42 | HOSPPROG ---
Hospitalist Progress Note Assessment/Plan: This 89-year-old male new to my care on 05/01/2017 presenting with: # acute on chronic respiratory failure due to influenza a and possible pneumonia viral versus bacterial -will start renally dosed Tamiflu -continue ceftriaxone and azithromycin day 2. -pulmonary consult pending # COPD exacerbation -continue prednisone # worsening anemia possibly delusional without signs of acute bleeding -repeat CBC in the morning # acute on chronic renal failure (improving) -avoid nephrotoxins and continue to monitor # asbestosis # diarrhea # history of bladder cancer # history coronary artery disease with right coronary artery stent in June of 2016 Patient requests to be DNR status Transfer to [facility] status with central pulse oximetry Subjective: Denies any fevers or chills. Still short of breath with minimal cough. Denies any chest pain. Not eating much. Objective: Vital Signs Temp Pulse Resp BP Pulse Ox 36.4 C 87 25 H 148/100 H 90 L 05/01/17 11:45 05/01/17 12:18 05/01/17 11:45 05/01/17 13:19 05/01/17 11:45 Microbiology 04/30/17 20:20 Respiratory Panel (PCR) - Final Nasal, Sinus - Swab Influenza Virus Type A H3 Laboratory Results 05/01/17 05:00 05/01/17 05:00 04/30/17 05/01/17 05/02/17 05:59 05:59 05:59 Intake Total 1190 860 Output Total 450 250 Balance 740 610 Renal ultrasound was reviewed - Physical Exam Cardiovascular: regular rate and rhythym, no murmur, rub, or gallop Respiratory: no respiratory distress, no rales or rhonchi, clear to auscultation , reduced air movement (Bilateral bases), No expiratory wheeze, No respiratory distress Gastrointestinal: normoactive bowel sounds, soft, non-tender abdomen, no palpable masses, No rebound, No distension Neurologic: AAOx3, No facial droop ICD10 Worksheet Patient Problems: Problems Problem Status Onset Shortness of breath Acute Hypoxemia Acute COPD (chronic obstructive pulmonary disease) Acute Chronic Disease Mgmt/Transitional Care Acute Pneumonia Acute Cardiac arrest Acute Acute respiratory failure Acute Urinary tract infection Acute Bladder cancer Acute Chronic obstructive pulmonary disease with acute exacerbation Acute
--- NOTE | 2017-05-01 15:22 | GCON ---
[f rep st] CONSULTATION PULMONARY AND CRITICAL CARE CONSULTATION. DATE OF CONSULTATION: 05/01/2017 REASON FOR CONSULTATION: Acute respiratory failure secondary to influenza A pneumonia in the setting of underlying COPD. HISTORY OF PRESENT ILLNESS: The patient is a very pleasant 89-year-old, who is well known to me from previous admissions. He is followed intermittently in our office as an outpatient.. 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 He is chronically on 4 L of oxygen at home and uses inhalers, at least on an as- needed basis. He has had increasing pulmonary congestion over the last several weeks. This was associated with cough and phlegm. He was recently put on Augmentin. Over the last 24-48 hours, he worsened significantly. He was admitted yesterday with acute respiratory failure. X-ray could not exclude pneumonitis. His influenza screening has come back positive for AHH3. He and his son cannot recall if he received an influenza vaccine is here. His admission is also associated with acute renal failure, with a BUN on admission of 103 and a creatinine of 3.0. He has mild chronic renal insufficiency at baseline. Liver function studies were also elevated. 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 He also worked at [employer] briefly but was not felt to have exposure to asbestos there. There is a history of congestive heart failure, bladder cancer, hypertension, coronary artery disease, and chronic renal insufficiency with a baseline creatinine of approximately 1.6. SOCIAL HISTORY: The patient quit smoking many years ago. He lives independently. He has supportive family nearby. Alcohol is negative. FAMILY HISTORY: Noncontributory. DRUG ALLERGIES: No known drug allergies. REVIEW OF SYSTEMS: A 10-point review of systems is negative except as mentioned in the HPI. PHYSICAL EXAMINATION: GENERAL: Reveals a pleasant, elderly gentleman who is currently in a chair. Oxygen is in place at 4 L with saturations of approximately 95%. He is in no distress. He is mildly tachypneic with some audible rhonchi. VITAL SIGNS: Blood pressure is 146/55, heart rate 85 with sinus rhythm on the monitor. He is afebrile. HEENT: Unremarkable for lymphadenopathy or thyromegaly. Jugular venous pressure does not appear to be elevated. Mucous membranes are slightly dry. PULMONARY: The chest reveals decreased breath sounds bilaterally with scattered bilateral rales and a prolonged expiratory phase, some central congestion/rhonchi are present. HEART : Regular in rate and rhythm. Heart tones are somewhat distant. Systolic murmur is present. There is no obvious gallop. P2 does appear to be elevated. ABDOMEN: Soft, nontender. Bowel sounds are present. There is no obvious organomegaly. EXTREMITIES: Without significant edema. NEUROLOGIC: Nonfocal. He moves all extremities equally and sensation appears to be intact. Cognition appears normal. DATA BASE: Chest x-ray and CT scan of the chest were done on admission. The latter shows severe central lobular/bullous emphysema. Some mucous plugging is present with associated bronchiectasis. There is an infiltrate in the lingula. There is pleural thickening and calcification consistent with asbestos. Renal ultrasound shows no evidence of obstruction. White blood cell count is approximately 12,000, down from 20,000 on admission. Hematocrit is 28.7, down from 34.2. Platelets are 268,000. Venous blood gas showed a lactic acid of 1.7 on admission, 0.9 currently. Sodium is 140, potassium 5.2, BUN 103, creatinine 2.5, glucose 141, AST 165, ALT 129. Troponin 0.075, 2.9. ASSESSMENT: 1. Acute respiratory failure secondary to influenza bronchopneumonia and underlying lung disease. On current therapies he has improved. 2. History of chronic obstructive pulmonary disease and asbestosis. He is on chronic oxygen at home and uses inhalers occasionally. Nebulizers for home use. 3. Acute renal insufficiency. BUN and creatinine are significantly increased compared to his baseline. He is making urine. 4. History of congestive heart failure. 5. Elevated liver function studies. Possibly secondary to viral hepatitis from influenza, possibly other etiologies such as hypotension/shock liver that occurred prior to admission? Liver function studies will be followed. 6. Hypoxemia. He is currently on 4 L, consistent with his baseline. He states he is breathing better compared to admission, approximately at a level of 6/10 for him. 7. Possible pneumonia. This seems less likely currently, however a possible pneumonia cannot be ruled out based on his chest x-ray and CT scan verses the presence of chronic changes. He is on ceftriaxone and azithromycin. I will continue these for now and consider narrowing or discontinuing these within the next 24-48 hours. PLAN AND RECOMMENDATIONS: Bronchodilator therapies will be continued. Steroids will be continued, prednisone at 60 mg for a few days prior to tapering. Tamiflu has been started, a 5 day course. will be given. Intravenous antibiotics including azithromycin and Rocephin will be continued for now. Chest x-ray, and pulmonary status will be followed. Regular medications will be continued. All medications will be adjusted for renal failure as well as hepatic disease. Laboratory will be followed. The patient will be hydrated judiciously secondary to his history of congestive heart failure. Further plans and recommendations will be made based on his progress over the next 12-24 hours. /[id number]/MODL MTDD
[2017-05-01] MEDS ORDERED: OSELTAMIVIR PHOSPHATE 75 MG CAP PO SCH (18:00)
[2017-05-01] MEDS ORDERED: OSELTAMIVIR 6 MG/ML UDSYR PO SCH (18:00)
--- NOTE | 2017-05-01 18:19 | ASMTCMCOM ---
CM Note CM Note Notes: 89 year old male admitted for SOB, Weakness, Resp Failure. He has a hx of COPD, CHF, CAD, HTN, Chronic respiratory failure, Bladder CA-S/P TURBT, CKD. Patient lives independently and still drives according to son. PT worked w/patient today recommending SNF vs HC. CM to follow. Date Signed: 05/01/2017 06:18 PM Electronically Signed By:Apple Ansari LCSW
[2017-05-01] MEDS: MELATONIN 3 MG TAB PO PRN (22:17)
[2017-05-01] MEDS: oxyCODONE IR 5 MG TAB PO PRN (22:17)
[2017-05-02] MEDS: IPRATROPIUM/ALBUTEROL 3 ML DEYVIAL IH SCH ×4 (04:22→22:41)
[2017-05-02 04:44] LABS: PLATELET COUNT 248 10^3/uL (150-400)
[2017-05-02] MEDS: HEPARIN 5,000 UNIT/0.5 ML SYR SC SCH ×3 (06:06→21:47)
[2017-05-02] MEDS ORDERED: predniSONE 20 MG TAB PO SCH ×2 (09:00→14:24)
[2017-05-02] MEDS: ISOSORBIDE DINITRATE 10 MG TAB PO SCH ×3 (09:17→16:16)
[2017-05-02] MEDS: OSELTAMIVIR 6 MG/ML UDSYR PO SCH (09:17)
[2017-05-02] MEDS: CLOPIDOGREL BISULFATE 75 MG TAB PO SCH (09:17)
[2017-05-02] MEDS: ATORVASTATIN CALCIUM 40 MG TAB PO SCH (09:18)
[2017-05-02] MEDS: ASPIRIN EC 81 MG TAB PO SCH (09:18)
[2017-05-02] MEDS: NEBIVOLOL HCL 5 MG TAB PO SCH (09:18)
[2017-05-02] MEDS: AZITHROMYCIN IV 500 MG in D5W 250 ML IV SCH (09:26)
[2017-05-02] MEDS ORDERED: PNEUMOC 13-VAL CONJ-DIP CRM/PF 0.5 ML SYR IM ONE (13:49)
--- NOTE | 2017-05-02 13:53 | ASMTCMCOM ---
CM Note CM Note Notes: Patient's son met this CM in the aceves and wanted some assist in setting up HC services. Son reports that patient had worked for [employer] and has a "White Card" for services. Son asked that I contact his sister, Vicky [phone] because she was having trouble accessing the [facility] resources. Contacted Vicky and then contacted Tamie godinez/[facility] [phone]. Tamie came to set up RN and other resources for Sammy. She asked that we set up [facility] for PT/OT needs. Referral sent to [facility]. Sammy august discharge Monday. Date Signed: 05/02/2017 01:53 PM Electronically Signed By:Apple Ansari LCSW
--- NOTE | 2017-05-02 14:20 | PDINTPN ---
Glass [facility]inder Progress Note Assessment/Plan: Assessment: Influenza bronchopneumonia COPD/emphysema. With exacerbation, secondary to above. Cannot absolutely rule out a coexistent bacterial process. Benjamin the patient on azithromycin for now. History of asbestosis and occupational lung disease. Appear stable. Congestive heart failure: Stable Increased LFTs: Query secondary to 1. Repeat tomorrow. Anemia: In part chronic. Will follow. No evidence of active bleeding. Acute renal insufficiency: Secondary to current illness and volume depletion. Renal nmbers have significantly improved but are not yet back to baseline. Prophylaxis: On subcu heparin. Eating, and needs no GI prophylaxis. Plan: Recommend continuing care in the hospital for 1 more day secondary to the multiple issues above and decreased pulmonary reserve. Continue Tamiflu. Will stop Rocephin, continue azithromycin for a total of 5 days. Follow CBC, laboratory, renal function, and liver function studies. Continue bronchopulmonary therapies. Increased activity as follows. Disposition hopefully will be to home with the assistance of home care from [facility] and from his [employer] benefits. 30 min of critical care time spent directly with the patient today. Discussed with nursing, clinical social worker, hospitalist, and the ICU multi disciplinary team. Subjective: Feels better, less short of breath. Feels he is about back to his baseline. Objective: Vital Signs Temp Pulse Resp BP Pulse Ox 36.4 C 72 18 129/50 H 95 05/02/17 08:00 05/02/17 12:36 05/02/17 12:36 05/02/17 12:31 05/02/17 12:36 Microbiology 05/01/17 04:20 Respiratory Panel (PCR) - Final Nasal, Sinus - Aspirate 04/30/17 20:20 Respiratory Panel (PCR) - Final Nasal, Sinus - Swab Influenza Virus Type A H3 Laboratory Results 05/02/17 04:20 05/02/17 04:20 05/01/17 05/02/17 05/03/17 05:59 05:59 05:59 Intake Total 1190 2685 Output Total 450 500 250 Balance 740 2185 -250 Laboratory Tests 05/01/17 05:00 VBG Lactic Acid 0.9 D CXR: No significant change in hyperinflation and bilateral areas of increased markings/scarring Physical Exam - Physical Exam General Appearance: alert, no apparent distress EENT: PERRL/EOMI, other (Nasal cannula at 4-5 L) Neck: normal inspection (No JVD) Respiratory: lungs clear (Anteriorly), decreased breath sounds (At bases with rales), rales (Rales at bases), wheezing (Few wheezes present), No rhonchi Cardiac/Chest: regular rate, rhythm, systolic murmur (Distant heart tones) Abdomen: normal bowel sounds, non-tender, soft Skin: normal color, warm/dry Extremities: No pedal edema Neuro/Psych: no motor/sensory deficits, No cognition abnormalities ICD10 Worksheet Patient Problems: Problems Problem Status Onset Shortness of breath Acute Hypoxemia Acute COPD (chronic obstructive pulmonary disease) Acute Chronic Disease Mgmt/Transitional Care Acute Pneumonia Acute Cardiac arrest Acute Acute respiratory failure Acute Urinary tract infection Acute Bladder cancer Acute Chronic obstructive pulmonary disease with acute exacerbation Acute
--- NOTE | 2017-05-02 14:42 | HOSPPROG ---
Hospitalist Progress Note Assessment/Plan: This 89-year-old male new to my care on 05/01/2017 presenting with: # acute on chronic respiratory failure due to influenza a and possible pneumonia viral versus bacterial -continue renally dosed Tamiflu -dc ceftriaxone and cont azithromycin # COPD exacerbation -continue prednisone # worsening anemia possibly delusional without signs of acute bleeding -repeat CBC in the morning # acute on chronic renal failure (improving) -avoid nephrotoxins and continue to monitor # asbestosis # diarrhea # history of bladder cancer # history coronary artery disease with right coronary artery stent in June of 2016 Patient requests to be DNR status Transfer to [facility] status with central pulse oximetry plan for dc 05/03 with home care if continues to improve Subjective: improving work of breathing. no fevers or chills. tolerating diet Objective: Vital Signs Temp Pulse Resp BP Pulse Ox 36.4 C 72 18 129/50 H 95 05/02/17 08:00 05/02/17 12:36 05/02/17 12:36 05/02/17 12:31 05/02/17 12:36 Microbiology 05/01/17 04:20 Respiratory Panel (PCR) - Final Nasal, Sinus - Aspirate 04/30/17 20:20 Respiratory Panel (PCR) - Final Nasal, Sinus - Swab Influenza Virus Type A H3 Laboratory Results 05/02/17 04:20 05/02/17 04:20 05/01/17 05/02/17 05/03/17 05:59 05:59 05:59 Intake Total 1190 2685 Output Total 450 500 250 Balance 740 2185 -250 - Physical Exam Constitutional: no apparent distress, appears nourished, not in pain Cardiovascular: regular rate and rhythym, no murmur, rub, or gallop Respiratory: no respiratory distress, reduced air movement, expiratory wheeze, bronchial breath sounds Gastrointestinal: normoactive bowel sounds, soft, non-tender abdomen, no palpable masses, No guarding, No rebound Skin: no rashes or abrasions, no fluctuance, no induration ICD10 Worksheet Patient Problems: Problems Problem Status Onset Shortness of breath Acute Hypoxemia Acute COPD (chronic obstructive pulmonary disease) Acute Chronic Disease Mgmt/Transitional Care Acute Pneumonia Acute Cardiac arrest Acute Acute respiratory failure Acute Urinary tract infection Acute Bladder cancer Acute Chronic obstructive pulmonary disease with acute exacerbation Acute
--- NOTE | 2017-05-02 16:15 | ASMTCMCOM ---
CM Note CM Note Notes: [facility] will be doing PT/OT; [facility] will be doing the RN so please sent orders to both agencies. [facility] will also need the Medication list [phone] Tamie, fax [phone]. PT recommending SNF. Faxed PT notes to [facility] so they could work on 14/11 caregivers. Date Signed: 05/02/2017 04:14 PM Electronically Signed By:Apple Ansari LCSW
[2017-05-02] MEDS: MELATONIN 3 MG TAB PO PRN (21:47)
[2017-05-02] MEDS: oxyCODONE IR 5 MG TAB PO PRN (21:47)
[2017-05-03 04:32] LABS: PLATELET COUNT 263 10^3/uL (150-400)
[2017-05-03] MEDS: IPRATROPIUM/ALBUTEROL 3 ML DEYVIAL IH SCH ×2 (05:47→11:44)
[2017-05-03] MEDS: HEPARIN 5,000 UNIT/0.5 ML SYR SC SCH (05:56)
[2017-05-03 08:09] VITALS: TEMP 98.1
[2017-05-03] MEDS: CLOPIDOGREL BISULFATE 75 MG TAB PO SCH (08:47)
[2017-05-03] MEDS: NEBIVOLOL HCL 5 MG TAB PO SCH (08:47)
[2017-05-03] MEDS: ASPIRIN EC 81 MG TAB PO SCH (08:47)
[2017-05-03] MEDS: ATORVASTATIN CALCIUM 40 MG TAB PO SCH (08:48)
[2017-05-03] MEDS ORDERED: OSELTAMIVIR 6 MG/ML UDSYR PO SCH (09:00)
--- NOTE | 2017-05-03 09:57 | PDIAF ---
- Diagnosis Diagnosis: influenza Code Status: Do Not Resuscitate - Medication Management Discharge Medications: Medications to Continue on Transfer Albuterol [Proventil Inhaler HFA (*)] 1 - 2 puffs IH DAILY PRN 07/03/16 [Last Taken 04/30/17 13:00] Nebivolol HCl [Bystolic] 10 mg PO DAILY 07/03/16 [Last Taken 04/30/17] Isosorbide Dinitrate [Isosorbide Dinitrate 10 mg (*)] 10 mg PO TIDNITRATE #0 tab 07/08/16 [Last Taken 04/30/17] Nitroglycerin [Nitrostat 0.4 mg (*)] 0.4 mg SL PRN PRN #0 btl 07/08/16 [Last Taken Unknown] Atorvastatin Calcium [Lipitor 40 mg (*)] 40 mg PO DAILY 01/23/17 [Last Taken 11/08] Potassium Cl [Klor-Con 20 meq (*)] 20 meq PO DAILY 01/23/17 [Last Taken 04/30/17 ] Torsemide [Demadex] 40 mg PO DAILY 01/23/17 [Last Taken 04/30/17] Aspirin EC [Aspirin EC 81 mg (*)] 81 mg PO DAILY 04/30/17 [Last Taken 04/30/17] Clopidogrel Bisulfate [Plavix (*)] 75 mg PO DAILY 04/30/17 [Last Taken 04/30/17] Melatonin [Melatonin 3 MG (*)] 3 mg PO HS PRN 04/30/17 [Last Taken 04/29/17] Azithromycin 250 mg PO DAILY #2 tablet 05/03/17 [Last Taken Unknown] Oseltamivir Phosphate [Tamiflu Oral Suspension] 30 mg PO DAILY #10 ml 05/03/17 [ Last Taken Unknown] predniSONE 40 mg PO DAILY #4 tablet 05/03/17 [Last Taken Unknown] Discharge Medications: Refer to the Discharge Home Medication list for PRN reason. - Orders Services needed: Home Care, Registered Nurse, Physical Therapy, Occupational Therapy Home Care Face to Face: I certify that this patient was under my care and that I had the required [id number] encounter meeting the encounter requirements on the discharge day. My findings support the fact that the patient is homebound as defined in Home Care Face to Face Continued: CMS Chapter 7 Medicare Benefits Manual 30.1.1 , The condition of the patient is such that there exists a normal inability to leave home and consequently, leaving home would require a considerable and taxing effort. Isolation Type: Droplet Isolation Diet Recommendation: no restrictions on diet Diet Texture: Regular Texture Diet, Thin Liquids - Follow Up Care Current Providers and Referrals: David Dalal MD [Primary Care Provider] - As per Instructions
[2017-05-03] MEDS: AZITHROMYCIN IV 500 MG in D5W 250 ML IV SCH (10:00)
[2017-05-03] MEDS: ISOSORBIDE DINITRATE 10 MG TAB PO SCH ×2 (10:03→12:47)
--- NOTE | 2017-05-03 10:45 | GDS ---
[f rep st] DISCHARGE SUMMARY DISCHARGE DIAGNOSES: 1. Clytk-it-ptlmijb hypoxemic respiratory failure due to below. 2. Influenza A with possible viral versus bacterial pneumonia. 3. Chronic obstructive pulmonary disease exacerbation. 4. Worsening anemia without signs of acute bleeding. 5. Asbestosis. 6. Diarrhea. 7. History of bladder cancer. 8. History of coronary artery disease. 9. Chronic kidney disease. 10. Transaminitis. CONSULTANTS: Dr. [facility] COURSE: 1. Cdkzi-vs-nmnxfbv hypoxemic respiratory failure: The patient was initially admitted to the intensive care unit due to his oxygen demands. He was subsequently diagnosed with influenza A, and was started on Tamiflu at a renal dose of 30 mg daily. He was also empirically treated initially for bacterial community-acquired pneumonia with Rocephin and azithromycin. His antibiotics were de-escalated to azithromycin alone on the day prior to discharge. 2. Patient has a history of gout. His home dose of allopurinol 300 mg daily was held during this hospital due to his renal function. He was not discharged on allopurinol. When he sees his primary care provider in the outpatient setting , they should discuss resuming the allopurinol at a renally based dose. 3. On the day of discharge, the patient states he is feeling well and appears to be at his baseline respiratory status. PHYSICAL EXAM: VITAL SIGNS: On day of discharge, blood pressure 182/85, pulse of 80, respiratory rate 20, O2 saturation 96% on 3.5 L, temperature afebrile. GENERAL: In no acute distress. LUNGS: Clear with no wheezes or rales. ABDOMEN: Soft. EXTREMITIES: No edema. PERTINENT LABS AND STUDIES: Chest x-ray done 05/02/2017: Refer to report. Abdominal ultrasound done 05/01/2017 was negative for hydronephrosis. DISCHARGE MEDICATIONS: Please refer to discharge medication reconciliation in [facility] for full details. Below is a preliminary list. NEW MEDICATIONS ON HOSPITAL DISCHARGE: 1. Tamiflu 30 mg daily to complete 5 days of treatment. 2. Azithromycin 250 mg daily to complete 5 days of treatment. 3. Prednisone 40 mg p.o. daily to complete 5 days of treatment. All other home medications were continued as usual home dosages. DISCHARGE INSTRUCTIONS: The patient will be discharged from the hospital with home care. He should follow up with his primary care provider next week. He should have further workup of his transaminitis, which seems to be a longstanding problem. /[id number]/MODL and [id number], 05/03/17, 129[facility] KIRKWOODMargarito
[2017-05-03 11:56] VITALS: PULSE 64; RESP 16; O2SAT 95
[2017-05-03 12:51] VITALS: BP 107/54
--- NOTE | 2017-05-03 15:40 | ASDISCHSUM ---
Discharge Information Plan Status:Home with Home Health Medically Cleared to Leave: Discharge Date:05/03/2017 02:06 PM CM D/C Disposition:Home Health Service ADT D/C Disposition:Home Health Service Projected Discharge Date:05/03/2017 12:00 AM Transportation at D/C:Family Discharge Delay Reason: Follow-Up Date:05/03/2017 12:00 AM Discharge Slot: Final Diagnosis:SOB, Weakness, Resp Failure Placement Information Referral Type:*Home Health Care Services Referral ID:[id number] Provider Name:[facility] Address 1:[address] [address] Address 2: City:[place] Selection Factors: State:[place] Patient Contact Information Contact Name:GUDELIA Relationship: Address: Home Phone: Work Phone: City: [facility] Phone: [facility] Code: Email: Financial Information Financial Class: Primary Plan Desc:MEDICARE INPATIENT Primary Plan Number:[id number] Secondary Plan Desc:[facility] Secondary Plan Number:[id number] Assessment Information [facility] CM Progress Note CM Note CM Note Notes: 89 year old male admitted for SOB, Weakness, Resp Failure. He has a hx of COPD, CHF, CAD, HTN, Chronic respiratory failure, Bladder CA-S/P TURBT, CKD. Patient lives independently and still drives according to son. PT worked w/patient today recommending SNF vs HC. CM to follow. Date Signed: 05/01/2017 06:18 PM Electronically Signed By:Apple Ansari LCSW [facility] CM Progress Note CM Note CM Note Notes: Patient's son met this CM in the aceves and wanted some assist in setting up HC services. Son reports that patient had worked for [employer] and has a "White Card" for services. Son asked that I contact his sister, Vicky [phone] because she was having trouble accessing the [employer] resources. Contacted Vicky and then contacted Tamie godinez/Joelle ARBOLEDA [phone]. Tamie came to set up RN and other resources for Sammy. She asked that we set up [facility] for PT/OT needs. Referral sent to [facility]. Sammy august. Date Signed: 05/02/2017 01:53 PM Electronically Signed By:Apple Ansari LCSW [facility] Progress Note CM Note CM Note Notes: [facility] will be doing PT/OT; [facility] will be doing the RN so please sent orders to both agencies. [facility] will also need the Medication list [phone] Tamie, fax [phone]. PT recommending SNF. Faxed PT notes to [facility] so they could work on 14/11 caregivers. Date Signed: 05/02/2017 04:14 PM Electronically Signed By:Apple Ansari LCSW [facility] Progress Note CM Note CM Note Notes: Pt to DC today. [facility] will provide RN, PT and OT. The RN will not be able to open pt until 5:00 tomorrow night. Discussed pt's needs in addition to HC with pt, dtr, Rn and PT. Pt has improved to where PT feels that pt no longer needs 24/7 at home. She would recommend that a family member stay with pt for the next few days. Dtr Vicky states her brother will stay with pt tonight and possibly the next few nights. Bibi Torres from [employer] is qworking with pt and Dr Calvo to set up unskilled services in the home. That should start within a week, per Tushar.[facility] alerted to DC Date Signed: 05/03/2017 03:38 PM Electronically Signed By:Narda Hubbard LCSW Intervention Information Intervention Type:*IM-Signed Date of Service:05/03/2017 12:15 PM Patient Type:Inpatient Staff Member:Joanne Gil Hours: Discipline: Severity: Comment:
== END 2017-05-03 14:06 | disposition home health service (06) | DRG 189 ==
LOC: EDUNIT# → F2N 20:39 → F1N 05-02 22:14
PROVIDERS: ADMIT Internal Medicine; ATTEND Internal Medicine
DX: J96.21 Acute and chronic respiratory failure with hypoxia (principal); J10.00 Influenza due to other identified influenza virus with unspecified type of pneumonia; J44.1 Chronic obstructive pulmonary disease with (acute) exacerbation; D64.9 Anemia, unspecified; N17.9 Acute kidney failure, unspecified; R19.7 Diarrhea, unspecified; R74.0 Nonspecific elevation of levels of transaminase and lactic acid dehydrogenase [LDH]; I13.0 Hypertensive heart and chronic kidney disease with heart failure and stage 1 through stage 4 chronic kidney disease, or unspecified chronic kidney disease; N18.9 Chronic kidney disease, unspecified; I50.9 Heart failure, unspecified; I25.10 Atherosclerotic heart disease of native coronary artery without angina pectoris; M10.9 Gout, unspecified; J61 Pneumoconiosis due to asbestos and other mineral fibers; I25.2 Old myocardial infarction; Z79.52 Long term (current) use of systemic steroids; Z95.5 Presence of coronary angioplasty implant and graft; Z99.81 Dependence on supplemental oxygen; Z87.891 Personal history of nicotine dependence; Z66 Do not resuscitate
CPT/HCPCS: 92610-GN; 96374; 97110-GP; 97116-GP; 97162-GP; 97165-GO; 97530-GO; 97530-GP; G0009; G8978-GP-CJ; G8979-GP-CI; G8987-GO-CK; G8988-GO-CI; G8996-GN-CH; G8997-GN-CH; G8998-GN-CH; J0456; J0696; J2930; J7512

== ENCOUNTER 2017-05-03 19:52 | Inpatient (IN) | payer OTHER ==
--- NOTE | 2017-05-03 21:09 | CPEKG ---
Heart Rate: 77 RR Interval: 779 P-R Interval: 156 QRSD Interval: 148 QT Interval: 428 QTC Interval: 485 P [place]: 64 QRS [place]: 94 T Wave [place]: 265 EKG Severity - ABNORMAL ECG - EKG Impression: SINUS RHYTHM EKG Impression: LEFT ATRIAL ABNORMALITY EKG Impression: RBBB AND LPFB EKG Impression: BORDERLINE INFERIOR Q WAVES EKG Impression: BORDERLINE ST DEPRESSION, LATERAL LEADS Electronically Signed By: Ludwig Phelps 03-May-2017 21:15:22
[2017-05-03 21:31] LABS: PLATELET COUNT 302 10^3/uL (150-400)
[2017-05-03] MEDS ORDERED: ONDANSETRON 4 MG/2 ML VIAL IVP PRN (22:24)
[2017-05-03] MEDS ORDERED: ONDANSETRON DISINTEGRATING 4 MG TAB PO PRN (22:24)
--- NOTE | 2017-05-03 22:49 | EDPHY ---
H & P Smoking Status: Former smoker Time Seen by Provider: 05/03/17 20:03 HPI/ROS: CHIEF COMPLAINT: Fall, weakness HISTORY OF PRESENT ILLNESS: 89-year-old male presents to the emergency department by private vehicle after he fell at home. The patient was just discharged from the hospital this afternoon. He was admitted for influenza as well as pneumonia. Patient states this afternoon he was feeling great and asked to be discharged home. Patient states that when he got home he had a bowl of soup and then when he was in the kitchen he became very weak and fell onto the tile floor hitting his head. He sustained an abrasion to the anterior aspect of his nose. He denies a headache. Denies neck or back pain. Denies chest pain or difficulty breathing. Denies abdominal pain. Denies paresthesias in his upper lower extremity. REVIEW OF SYSTEMS: Constitutional: No fever, no chills. Eyes: No double or blurry vision. ENT: No sore throat. Respiratory: No cough, no shortness of breath. Cardiac: No chest pain. Gastrointestinal: No abdominal pain, vomiting or diarrhea. Genitourinary: No dysuria. Musculoskeletal: No neck or back pain. Skin: No rashes. Neurological: No headache. (Simi Styles) Past Medical/Surgical History: COPD on continuous oxygen, hypertension, cardiac stents, bladder cancer, renal insufficiency, CHF, hernia repair, herniated disc (Simi Styles) Social History: and lives alone (Simi Styles) Physical Exam: General Appearance: Alert, no distress. Mentating normally and answering questions appropriately. The abrasion to the anterior right forehead as well as an abrasion to the anterior aspect of the bridge of the nose. Eyes: Pupils equal and round. Extraocular motions are all intact. ENT: Mouth: Mucous membranes moist. No dental injury or malocclusion. No hemotympanum. Respiratory: No wheezing, rhonchi, or rales, lungs are clear to auscultation. Cardiovascular: Regular rate and rhythm. Gastrointestinal: Abdomen is soft and nontender, no masses, no rebound or guarding, bowel sounds normal. Neurological: Alert and oriented x 3, cranial nerves II through XII grossly intact Skin: Warm and dry, no rashes. Abrasion to the anterior aspect of the nose. Musculoskeletal: Nontender to palpate along the cervical, thoracic or lumbar spine. Neck is supple. Extremities: Full range of motion and no peripheral edema. Psychiatric: Patient is oriented X 3, there is no agitation. (Simi Styles) Constitutional: Initial Vital Signs Temperature (C) 36.4 C 05/03/17 19:57 Heart Rate 92 05/03/17 19:57 Respiratory Rate 28 H 05/03/17 19:57 Blood Pressure 135/120 H 05/03/17 19:57 O2 Sat (%) 89 L 05/03/17 19:57 O2 Delivery Mode Nasal Cannula O2 (L/minute) 5 Allergies/Adverse Reactions: No Known Allergies Allergy (Verified 05/03/17 19:59) Home Medications: Medication Instructions Recorded Albuterol [Proventil Inhaler HFA 1 - 2 puffs IH DAILY PRN 07/03/16 (*)] Nebivolol HCl [Bystolic] 10 mg PO DAILY 07/03/16 Isosorbide Dinitrate [Isosorbide 10 mg PO TIDNITRATE #0 tab 07/08/16 Dinitrate 10 mg (*)] Nitroglycerin [Nitrostat 0.4 mg 0.4 mg SL PRN PRN #0 btl 07/08/16 (*)] Atorvastatin Calcium [Lipitor 40 40 mg PO DAILY 01/23/17 mg (*)] Potassium Cl [Klor-Con 20 meq (*)] 20 meq PO DAILY 01/23/17 Torsemide [Demadex] 40 mg PO DAILY 01/23/17 Aspirin EC [Aspirin EC 81 mg (*)] 81 mg PO DAILY 04/30/17 Clopidogrel Bisulfate [Plavix (*)] 75 mg PO DAILY 04/30/17 Melatonin [Melatonin 3 MG (*)] 3 mg PO HS PRN 04/30/17 Azithromycin 250 mg PO DAILY #2 tablet 05/03/17 Oseltamivir Phosphate [Tamiflu 30 mg PO DAILY #10 ml 05/03/17 Oral Suspension] predniSONE 40 mg PO DAILY #4 tablet 05/03/17 Medical Decision Making - Diagnostics Imaging: Discussed imaging studies w/ call center supervisor Radiologist - Diagnostics EKG Interpretation: EKG: Complete interpretation has been separately recorded in the [employer] archive. Summary impression: Bifascicular block, chronic nonspecific ST T wave changes are noted (Ludwig Phelps) Imaging Results: Imaging Impressions Head CT 05/03/17 20:15 Impression: 1. Elderly brain with prominent atrophy and presumed small vessel change. 2. Negative for acute intracranial abnormality, specifically, negative for hemorrhage. 3. See above report for additional findings. Results called and discussed with SIMIEUGENIE STYLES on 05/03/2017 at 21:48 ED Course/Re-evaluation: 89-year-old male presents to the emergency department after he fell at home feeling very weak. The patient had CT imaging of his brain which revealed no intracranial bleeding or skull fracture. No evidence of atrophy noted. Patient had an abrasion to the anterior aspect of his nose which was thoroughly cleansed and then dressed with surgical foam and a bandage. Laboratory studies reveal white blood cell count 40310 with hemoglobin 10.1 and hematocrit 30.8%. Platelets are normal at 302. Potassium 53, CO2 was 21, BUN is 71 and creatinine is 2.0. Blood sugar 123. Troponin elevated 0.123. The daughter feels very strongly that the patient should be admitted to the hospital. I verbalized understanding and agreed. The patient and family at bedside understand that there are no beds available at this time. I gave the option of being a border patient in the emergency department and being transferred upstairs when a bed becomes available or offering admission to another hospital. The family would like to stay here at the hospital since his doctors are here. The I spoke with Dr. Samia Herrera about this and the patient will be a border in the emergency department and be admitted to Dr. Samia Herrera. PCU bed has been ordered. Case was discussed with Dr. Phelps, secondary supervising physician, who did not directly evaluate the patient but agrees with treatment and plan. (Simi Styles) Differential Diagnosis: Head injury including but not limited to concussion, skull fracture, intraparenchymal contusion, subarachnoid, subdural and epidural hematoma. Weakness including but not limited to electrolyte abnormality, depression, anxiety, CVA, spinal cord abnormality, and infectious causes. (Simi Styles) Other Provider: PHYSICIAN DOCUMENTATION: The patient was evaluated and managed by the Physician Maintenance Advisor. My co- signature indicates that I have reviewed this chart and I agree with the findings and plan of care as documented. I am the secondary supervising physician. (Ludwig Phelps) - Data Points Laboratory Results: Laboratory Results 05/03/17 21:26 05/03/17 21:26 05/03/17 05/03/17 21:26 21:26 WBC 12.19 10^3/uL H 10^3/uL (3.80-9.50) RBC 3.46 10^6/uL L 10^6/uL (4.40-6.38) Hgb 10.1 g/dL L g/dL (13.7-17.5) Hct 30.8 % L % (40.0-51.0) MCV 89.0 fL fL (81.5-99.8) MCH 29.2 pg pg (27.9-34.1) MCHC 32.8 g/dL g/dL (32.4-36.7) RDW 17.3 % H % (11.5-15.2) Plt Count 302 10^3/uL 10^3/uL (150-400) MPV 9.7 fL fL (8.7-11.7) Neut % (Auto) Not Reported Lymph % (Auto) Not Reported [place] % (Auto) Not Reported Eos % (Auto) Not Reported Baso % (Auto) Not Reported Nucleat RBC Rel Count 0.0 % % (0.0-0.2) Absolute Neuts (auto) Not Reported Absolute Lymphs (auto) Not Reported Absolute Monos (auto) Not Reported Absolute Eos (auto) Not Reported Absolute Basos (auto) Not Reported Absolute Nucleated RBC 0.00 10^3/uL 10^3/uL (0-0.01) Immature Gran % Not Reported Seg Neutrophils % 95 % % Lymphocytes % 3 % % Monocytes % 2 % % Immature Gran # Not Reported Absolute Seg Neuts 11.58 10^/uL H 10^/uL (1.70-6.50) Absolute Lymphocytes 0.37 10^3/uL L 10^3/uL (1.00-3.00) Absolute Monocytes 0.24 10^3/uL L 10^3/uL (0.30-0.80) Platelet Estimate ADEQUATE (ADEQ) Polychromasia 1+ H Tear Drop Cells 1+ H Sodium 143 mEq/L mEq/L (135-145) Potassium 5.3 mEq/L H mEq/L (3.5-5.2) Chloride 108 mEq/L mEq/L (97-110) Carbon Dioxide 21 mEq/l L mEq/l (22-31) Anion Gap 14 mEq/L mEq/L (8-16) BUN 71 mg/dL H mg/dL (7-23) Creatinine 2.0 mg/dL H mg/dL (0.7-1.3) Estimated GFR 32 Glucose 123 mg/dL H mg/dL (70-100) Calcium 9.0 mg/dL mg/dL (8.5-10.4) Troponin I 0.123 ng/mL H ng/mL (0.000-0.034) Departure - Departure Disposition: [facility] Inpatient Acute Clinical Impression: Weakness Head injury Qualifiers: Encounter type: initial encounter Qualified Code(s): S09.90XA - Unspecified injury of head, initial encounter Facial abrasion Qualifiers: Encounter type: initial encounter Qualified Code(s): S00.81XA - Abrasion of other part of head, initial encounter Facial contusion Qualifiers: Encounter type: initial encounter Qualified Code(s): S00.83XA - Contusion of other part of head, initial encounter Condition: Good
[2017-05-03] MEDS ORDERED: MELATONIN 3 MG TAB PO PRN (23:20)
--- NOTE | 2017-05-03 23:59 | PDGENHP ---
History and Physical - Chief Complaint Fall - History of Present Illness 89 yo M w/ COPD, asbestosis, CAD presents after a fall. He was discharged from [facility] earlier on the same day after hospitalization for AHRF 2/2 influenza and COPD exacerbation. He felt great on the day of discharge and asked to be sent home. Once home, he was making soup when he felt weak and lost his footing. He fell and hit his head and nose. CT head in the ED showed no intracranial sequelae. He was discharged with Tamiflu, azithromycin, and prednisone as well as home health. However, home health services were not scheduled to come until tomorrow. He denies any symptoms currently. History Information - Allergies/Home Medication List Allergies/Adverse Reactions: No Known Allergies Allergy (Verified 05/03/17 19:59) Home Medications: Albuterol [Proventil Inhaler HFA (*)] 1 - 2 puffs IH DAILY PRN 07/03/16 [Last Taken 04/30/17 13:00] Nebivolol HCl [Bystolic] 10 mg PO DAILY 07/03/16 [Last Taken 04/30/17] Atorvastatin Calcium [Lipitor 40 mg (*)] 40 mg PO DAILY 01/23/17 [Last Taken 11/08] Potassium Cl [Klor-Con 20 meq (*)] 20 meq PO DAILY 01/23/17 [Last Taken 04/30/17 ] Torsemide [Demadex] 40 mg PO DAILY 01/23/17 [Last Taken 04/30/17] Aspirin EC [Aspirin EC 81 mg (*)] 81 mg PO DAILY 04/30/17 [Last Taken 04/30/17] Clopidogrel Bisulfate [Plavix (*)] 75 mg PO DAILY 04/30/17 [Last Taken 04/30/17] Melatonin [Melatonin 3 MG (*)] 3 mg PO HS PRN 04/30/17 [Last Taken 04/29/17] I have personally reviewed and updated: family history, medical history - Past Medical History COPD, hypertension Additional medical history: Asbestosis - Surgical History Additional surgical history: Lumbar spine surgery 2004, inguinal hernia repair - Family History Additional family history: Reviewed, noncontributory - Social History Smoking Status: Former smoker Additional social history: Worked on [employer], where he likely contracted asbestos related lung disease. 30 pack year tobacco history, quit in the 's. Rare etoh. Lives at home independently, declining over past several weeks according to children. Review of Systems Review of Systems: ROS: 10pt was reviewed & negative except for what was stated in HPI & below Physical Exam Physical Exam: Temp Pulse Resp BP Pulse Ox 36.4 C 70 20 146/74 H 97 05/03/17 23:42 05/03/17 23:42 05/03/17 23:42 05/03/17 23:42 05/03/17 23:42 O2 (L/minute) 5 Constitutional: no apparent distress, not in pain Eyes: PERRL, EOMI Ears, Nose, Mouth, Throat: moist mucous membranes, no oral mucosal ulcers, other (Abrasions on nose and forehead) Cardiovascular: regular rate and rhythym, systolic murmur Respiratory: no respiratory distress, reduced air movement Gastrointestinal: normoactive bowel sounds, soft, non-tender abdomen Skin: warm, normal color Musculoskeletal: full muscle strength, no muscle tenderness Neurologic: AAOx3, CN II-XII Intact Psychiatric: interacting appropriately, not anxious Lab Data & Imaging Review 05/03/17 21:26 05/03/17 21:26 WBC 12.19 10^3/uL (3.80-9.50) H 05/03/17 21: RBC 3.46 10^6/uL (4.40-6.38) L 05/03/17 21:26 Hgb 10.1 g/dL (13.7-17.5) L 05/03/17 21: Hct 30.8 % (40.0-51.0) L 05/03/17 21: MCV 89.0 fL (81.5-99.8) 05/03/17 21: MCH 29.2 pg (27.9-34.1) 05/03/17 21: MCHC 32.8 g/dL (32.4-36.7) 05/03/17 21: RDW 17.3 % (11.5-15.2) H 05/03/17 21:26 Plt Count 302 10^3/uL (150-400) 05/03/17 21: MPV 9.7 fL (8.7-11.7) 05/03/17 21: Neut % (Auto) Not Reported 01/10/18 21:26 Lymph % (Auto) Not Reported 05/03/17 21:26 [place] % (Auto) Not Reported 05/03/17 21:26 Eos % (Auto) Not Reported 05/03/17 21: Baso % (Auto) Not Reported 05/03/17 21:26 Nucleat RBC Rel Count 0.0 % (0.0-0.2) 05/03/17 21:26 Absolute Neuts (auto) Not Reported 05/03/17 21:26 Absolute Lymphs (auto) Not Reported 05/03/17 21:26 Absolute Monos (auto) Not Reported 05/03/17 21:26 Absolute Eos (auto) Not Reported 05/03/17 21:26 Absolute Basos (auto) Not Reported 05/03/17 21: Absolute Nucleated RBC 0.00 10^3/uL (0-0.01) 05/03/17 21: Immature Gran % Not Reported 05/03/17 21:26 Seg Neutrophils % 95 % 05/03/17 21:26 Lymphocytes % 3 % 05/03/17 21: Monocytes % 2 % 05/03/17 21:26 Immature Gran # Not Reported 05/03/17 21:26 Absolute Seg Neuts 11.58 10^/uL (1.70-6.50) H 05/03/17 21: Absolute Lymphocytes 0.37 10^3/uL (1.00-3.00) L 05/03/17 21: Absolute Monocytes 0.24 10^3/uL (0.30-0.80) L 05/03/17 21:26 Platelet Estimate ADEQUATE (ADEQ) 05/03/17 21:26 Polychromasia 1+ H 05/03/17 21:26 Tear Drop Cells 1+ H 05/03/17 21:26 Sodium 143 mEq/L (135-145) 05/03/17 21:26 Potassium 5.3 mEq/L (3.5-5.2) H 05/03/17 21:26 Chloride 108 mEq/L (97-110) 05/03/17 21:26 Carbon Dioxide 21 mEq/l (22-31) L 05/03/17 21:26 Anion Gap 14 mEq/L (8-16) 05/03/17 21:26 BUN 71 mg/dL (7-23) H 05/03/17 21:26 Creatinine 2.0 mg/dL (0.7-1.3) H 05/03/17 21:26 Estimated GFR 32 05/03/17 21:26 Glucose 123 mg/dL (70-100) H 05/03/17 21:26 Calcium 9.0 mg/dL (8.5-10.4) 05/03/17 21:26 Troponin I 0.123 ng/mL (0.000-0.034) H 05/03/17 21:26 Imaging Review: Imaging Impressions Head CT 05/03/17 20:15 Impression: 1. Elderly brain with prominent atrophy and presumed small vessel change. 2. Negative for acute intracranial abnormality, specifically, negative for hemorrhage. 3. See above report for additional findings. Results called and discussed with SIMI LORD on 05/03/2017 at 21:48 Visualized and Interpreted EKG results: Yes EKG Interpretation: Positive for: other (RBBB, LPFB, lateral ST depressions unchanged from prior comparison) Assessment & Plan Assessment: 89 yo M w/ COPD and CAD, recently discharged after treatment for influenza and COPD exacerbation presents after fall. Plan: 1. Fall, weakness - Presumably 2/2 deconditioning in the setting of recent illness, hospitalization, and advanced age. Patient discharged in the day and was feeling well. No clear trigger to suggest acute pathology contributing. CTH in the ED with no acute intracranial abnormalities. - 500 mL NS bolus in case mild dehydration - PT/OT/CM evaluations - May require ALEX placement 2. COPD with recent exacerbation 2/2 influenza - Also c/b hx of asbestosis. Uses 4-5 L/min O2 chronically, currently at baseline. - Has 2 additional days of azithromycin, prednisone, and Tamiflu - Needs med reconciliation - albuterol PRN 3. Elevated troponin - 0.123 on admission with no chest pain. ECG with RBBB, LPFB, and lateral ST depression but unchanged from previous comparisons. - Trend enzymes, monitor on telemetry 4. Hx CAD - Has 4 stents placed to RCA in June of 2016 in complicated procedure. On DAPT, statin, and BB as outpatient. 5. CKD - Stage 3B, currently at baseline with serum Cr of 2.0 on admission. Avoid nephrotoxic agents. Diet - Regular Code - Full Ppx - SCDs Dispo - Admit to observation status
[2017-05-04] MEDS ORDERED: NS 500 ML IV ONE (00:04)
[2017-05-04] MEDS ORDERED: ALBUTEROL 3 ML DEYVIAL IH PRN (00:09)
[2017-05-04] MEDS: ACETAMINOPHEN 325 MG TAB PO PRN ×2 (03:37→22:56)
[2017-05-04 05:45] LABS: PLATELET COUNT 276 10^3/uL (150-400)
--- NOTE | 2017-05-04 08:37 | HOSPPROG ---
Hospitalist Progress Note Assessment/Plan: 89 yo M w/ COPD and CAD, recently discharged after treatment for influenza and COPD exacerbation presents after fall. Today is my 1st encounter with the patient. Chart reviewed. * gait instability resulting in a fall -CT of head showed nothing acute -will await input from Physical therapy and Occupational therapy -has significant ecchymosis on both arms, behind the left knee, below the right eye area, scab to the right forehead,bruising to his nose * recent influenza a -continue prednisone, azithromycin and Tamiflu * COPD exacerbation from the above -wears oxygen chronically -was at 5 L this morning but now on 3 this is his baseline *anemia -follow * coronary artery disease with [address] -had no chest pain during my interview -reviewed his air sampling and monitoring, having some pauses *elevated trops/likely demand ischemia -not c/o pain, will get an echocardiogram for further evaluation * chronic kidney disease stage 3 *Plan: he is likely to fall again with the above and will require another midnight stay for close monitoring. I think he needs a higher level of care. He lives alone and is extremely weak. Subjective: Sammy has no c/o pain from all the bruises. Says he feels fine but is very weak, was disappointed to return to the hospital Objective: Vital Signs Temp Pulse Resp BP Pulse Ox 36.5 C 65 18 131/47 H 96 05/04/17 07:51 05/04/17 07:51 05/04/17 07:51 05/04/17 07:51 05/04/17 07:51 Laboratory Results 05/04/17 04:42 05/04/17 04:42 05/03/17 05/04/17 05/05/17 05:59 05:59 05:59 Output Total 225 Balance -225 - Physical Exam Constitutional: not in pain, chronically ill appearing, obese Eyes: PERRL Ears, Nose, Mouth, Throat: hearing normal Cardiovascular: regular rate and rhythym Respiratory: no respiratory distress, reduced air movement Skin: other (bruising behind left knee, both arm w significant ecchymosis, ecchymosis below right eye area.) Musculoskeletal: generalized weakness Neurologic: AAOx3 Psychiatric: interacting appropriately, not anxious ICD10 Worksheet Patient Problems: Problems Problem Status Onset Facial abrasion Acute Facial contusion Acute Head injury Acute Weakness Acute Acute respiratory failure Acute Bladder cancer Acute COPD (chronic obstructive pulmonary disease) Acute Cardiac arrest Acute Chronic Disease Mgmt/Transitional Care Acute Chronic obstructive pulmonary disease with acute exacerbation Acute Hypoxemia Acute Pneumonia Acute Shortness of breath Acute Urinary tract infection Acute
[2017-05-04] MEDS ORDERED: ALBUTEROL 60 PUFFS/8 GM MDI IH PRN (13:09)
[2017-05-04] MEDS ORDERED: NITROGLYCERIN 0.4 MG BTL SL PRN (13:09)
[2017-05-04] MEDS ORDERED: NEBIVOLOL HCL 5 MG TAB PO SCH (13:15)
[2017-05-04] MEDS: CLOPIDOGREL BISULFATE 75 MG TAB PO SCH (14:23)
[2017-05-04] MEDS: predniSONE 20 MG TAB PO SCH (14:23)
[2017-05-04] MEDS: AZITHROMYCIN 250 MG TAB PO SCH (14:23)
--- NOTE | 2017-05-04 14:29 | ASMTCMCOM ---
CM Note CM Note Notes: Pt was discharged yesterday afternoon. He was in his kitchen making dinner, felt weak and fell. Pt is going to be managed by [facility] ([place] [phone]). At time of dc, PCM was in the process of establishing him, but will take about a week, so homecare was set up in the interim with [facility]. As of now OT recommending SNF, CM waiting for PT recommendation DC Plan: TBD Date Signed: 05/04/2017 02:28 PM Electronically Signed By:Mana Cortez RN
[2017-05-04] MEDS: OSELTAMIVIR 6 MG/ML UDSYR PO SCH (15:23)
--- NOTE | 2017-05-04 15:57 | PDMN ---
Medical Necessity Medical necessity: change to IP; los>2mn for gait instability w/fall and likelihood of repeat fall; unsafe to d/c to home alone; requires further monitoring. PT/OT, comorbid CAD, CKD, anemia, recent influenza w/COPD exacerbation; chronic O2; per order and progress note 05/04/17
[2017-05-04] MEDS: ISOSORBIDE DINITRATE 10 MG TAB PO SCH (17:17)
[2017-05-04] MEDS ORDERED: oxyCODONE IR 5 MG TAB PO ONE (20:34)
[2017-05-04] MEDS ORDERED: oxyCODONE IR 5 MG TAB ONE (22:52)
[2017-05-04] MEDS: MELATONIN 3 MG TAB PO PRN (22:56)
[2017-05-05 05:11] LABS: PLATELET COUNT 279 10^3/uL (150-400)
[2017-05-05] MEDS: ISOSORBIDE DINITRATE 10 MG TAB PO SCH ×3 (07:57→15:41)
[2017-05-05] MEDS ORDERED: POTASSIUM CL 20 MEQ TAB PO SCH (09:00)
[2017-05-05] MEDS ORDERED: NON-FORMULARY NEW DRUG (Nebivolol Hcl [Bystolic] 10 MG) PO SCH (09:00)
[2017-05-05] MEDS: AZITHROMYCIN 250 MG TAB PO SCH (09:13)
[2017-05-05] MEDS: ATORVASTATIN CALCIUM 40 MG TAB PO SCH (09:13)
[2017-05-05] MEDS: NEBIVOLOL HCL 5 MG TAB PO SCH (09:15)
[2017-05-05] MEDS: CLOPIDOGREL BISULFATE 75 MG TAB PO SCH (09:15)
[2017-05-05] MEDS: OSELTAMIVIR 6 MG/ML UDSYR PO SCH (09:17)
[2017-05-05] MEDS: predniSONE 20 MG TAB PO SCH (09:17)
--- NOTE | 2017-05-05 12:06 | HOSPPROG ---
Hospitalist Progress Note Assessment/Plan: 89 yo M w/ COPD and CAD, recently discharged after treatment for influenza and COPD exacerbation presents after fall. 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 Objective: Vital Signs Temp Pulse Resp BP Pulse Ox 36.6 C 65 20 181/85 H 99 05/05/17 08:00 05/05/17 09:15 05/05/17 08:00 05/05/17 09:15 05/05/17 08:00 Laboratory Results 05/05/17 04:37 05/05/17 10:40 05/04/17 05/05/17 05/06/17 05:59 05:59 05:59 Intake Total 50 Balance 50 - Physical Exam Constitutional: not in pain, chronically ill appearing Eyes: PERRL Ears, Nose, Mouth, Throat: hearing normal Respiratory: no respiratory distress Gastrointestinal: normoactive bowel sounds Skin: warm, other (mulitple areas of ecchymosis, arms, under r eye area) Musculoskeletal: generalized weakness Neurologic: AAOx3 Psychiatric: interacting appropriately ICD10 Worksheet Patient Problems: Problems Problem Status Onset Facial abrasion Acute Facial contusion Acute Head injury Acute Weakness Acute Acute respiratory failure Acute Bladder cancer Acute COPD (chronic obstructive pulmonary disease) Acute Cardiac arrest Acute Chronic Disease Mgmt/Transitional Care Acute Chronic obstructive pulmonary disease with acute exacerbation Acute Hypoxemia Acute Pneumonia Acute Shortness of breath Acute Urinary tract infection Acute
--- NOTE | 2017-05-05 15:46 | PDCARCONS ---
Cardiology Consult Reason for Consult: Troponin elevation Chief Complaint: Myagias secondary to fall Requesting Physician: Hospitalist team History of Present Illness: Patient is an 89 y/o male with history of CAD s/p PCI to RCA in June 2016 in setting of NQWMI (with residual LM (70%), LAD (85% then 70%), and LCX (60%) stenosis noted), CHF (echo with EF at 45%), COPD/asbestosis, HTN, HLP, and CKD ( creatinine at 1.9), who presents back to [facility] after a fall at home thought related weakness and influenza. No cardiovascular complaints of chest pain or pressure. No shortness of breath beyond baseline has been noted. Hospitalist service with cardiology input desired given a slight elevation in troponin that has been noted (0.294 with creatinine of 1.7). Review of outpatient office note from December 2016 (Dr. Greta Guerrero) with documentation of residual CAD as above. No fevers, chills, PND, orthopnea. Ongoing use of supplemental oxygen. Family was at bedside with the patient. Productive cough was noted. Diffuse ecchymosis to upper extremities as well as excoriation to right forehead ( consistent with recent fall). CT of head with "elderly brain", but no acute intercranial pathology (hemorrhage). Remainder of 12 point review of systems was unremarkable History Information - Allergies/Home Medication List Allergies/Adverse Reactions: No Known Allergies Allergy (Verified 05/03/17 19:59) Home Medications: Albuterol [Proventil Inhaler HFA (*)] 1 - 2 puffs IH DAILY PRN 07/03/16 [Last Taken 04/30/17 13:00] Nebivolol HCl [Bystolic] 10 mg PO DAILY 07/03/16 [Last Taken 05/03/17] Atorvastatin Calcium [Lipitor 40 mg (*)] 40 mg PO DAILY 01/23/17 [Last Taken 02/08] Potassium Cl [Klor-Con 20 meq (*)] 20 meq PO DAILY 01/23/17 [Last Taken 04/30/17 ] Torsemide [Demadex] 40 mg PO DAILY 01/23/17 [Last Taken 04/30/17] Aspirin EC [Aspirin EC 81 mg (*)] 81 mg PO DAILY 04/30/17 [Last Taken 05/03/17] Clopidogrel Bisulfate [Plavix (*)] 75 mg PO DAILY 04/30/17 [Last Taken 05/03/17] Melatonin [Melatonin 3 MG (*)] 3 mg PO HS PRN 04/30/17 [Last Taken 05/02/17] I have personally reviewed and updated: family history, medical history, social history, surgical history Past Medical History: - Past Medical History coronary artery disease, COPD, hypertension, hyperlipidemia, myocardial infarction - Surgical History Reports: coronary stent - Family History Positive for: non-pertinent - Social History Smoking Status: Former smoker Alcohol Use: None Drug Use: None Cardiac History - Cardiac History Past Cardiac History: CAD, PCI Cardiac Risk Factors: hypertension (>140/90), lipidemia, age > 65, male Timing/Duration: Unsure Severity: mild Severity Scale: 2 Activities at Onset: activity Modifying Factors: improves with: rest Associated Symptoms: cough, shortness of breath Physical Exam Physical Exam: Temp Pulse Resp BP Pulse Ox 36.4 C 63 22 H 162/70 H 95 05/05/17 12:00 05/05/17 12:00 05/05/17 12:00 05/05/17 12:00 05/05/17 12:00 O2 (L/minute) 5 Constitutional: no apparent distress, appears nourished, not in pain, chronically ill appearing Eyes: PERRL Ears, Nose, Mouth, Throat: moist mucous membranes, hearing normal Cardiovascular: regular rate and rhythym, systolic murmur, pulses symmetric bilaterally, No JVD Peripheral Pulses: 2+: dorsalis-pedis (R), dorsalis-pedis (L) Respiratory: no respiratory distress, clear to auscultation Gastrointestinal: normoactive bowel sounds Skin: warm Musculoskeletal: full muscle strength Neurologic: AAOx3, weakness, CN II-XII Intact Psychiatric: interacting appropriately, not anxious Lab and Imaging 05/05/17 04:37 05/05/17 10:40 WBC 7.83 10^3/uL (3.80-9.50) 05/05/17 04:37 RBC 3.07 10^6/uL (4.40-6.38) L 05/05/17 04:37 Hgb 8.6 g/dL (13.7-17.5) L 05/05/17 04:37 Hct 27.6 % (40.0-51.0) L 05/05/17 04:37 MCV 89.9 fL (81.5-99.8) 05/05/17 04:37 MCH 28.0 pg (27.9-34.1) 05/05/17 04:37 MCHC 31.2 g/dL (32.4-36.7) L 05/05/17 04:37 RDW 17.3 % (11.5-15.2) H 05/05/17 04:37 Plt Count 279 10^3/uL (150-400) 05/05/17 04:37 MPV 10.2 fL (8.7-11.7) 05/05/17 04:37 Neut % (Auto) Not Reported 05/05/17 04:37 Lymph % (Auto) Not Reported 05/05/17 04:37 [place] % (Auto) Not Reported 05/05/17 04:37 Eos % (Auto) Not Reported 05/05/17 04:37 Baso % (Auto) Not Reported 05/05/17 04:37 Nucleat RBC Rel Count 0.0 % (0.0-0.2) 05/05/17 04:37 Absolute Neuts (auto) Not Reported 05/05/17 04:37 Absolute Lymphs (auto) Not Reported 05/05/17 04:37 Absolute Monos (auto) Not Reported 05/05/17 04:37 Absolute Eos (auto) Not Reported 05/05/17 04:37 Absolute Basos (auto) Not Reported 05/05/17 04:37 Absolute Nucleated RBC 0.00 10^3/uL (0-0.01) 05/05/17 04:37 Immature Gran % Not Reported 05/05/17 04:37 Seg Neutrophils % 91 % 05/05/17 04:37 Band Neutrophils % 3 % 05/04/17 04:42 Lymphocytes % 5 % 05/05/17 04:37 Monocytes % 2 % 05/05/17 04:37 Myelocytes % 2 % 05/05/17 04:37 Immature Gran # Not Reported 05/05/17 04:37 Absolute Seg Neuts 7.13 10^/uL (1.70-6.50) H 05/05/17 04:37 Absolute Band Neuts 0.31 10^3/uL (0.00-0.70) 05/04/17 04:42 Absolute Lymphocytes 0.39 10^3/uL (1.00-3.00) L 05/05/17 04:37 Absolute Monocytes 0.16 10^3/uL (0.30-0.80) L 05/05/17 04:37 Absolute Myelocytes 0.16 10^3/mL (0.00-0.00) H 05/05/17 04:37 Platelet Estimate ADEQUATE (ADEQ) 05/05/17 04:37 Polychromasia 1+ H 05/03/17 21:26 Microcytic Cells 1+ H 05/05/17 04:37 Tear Drop Cells 1+ H 05/03/17 21:26 Smear Review By Larry WYNN MD 05/05/17 04:37 Sodium 148 mEq/L (135-145) H 05/05/17 04:37 Potassium 5.3 mEq/L (3.5-5.2) H 05/05/17 10:40 Chloride 112 mEq/L (97-110) H 05/05/17 04:37 Carbon Dioxide 27 mEq/l (22-31) 05/05/17 04:37 Anion Gap 9 mEq/L (8-16) 05/05/17 04:37 BUN 57 mg/dL (7-23) H 05/05/17 04:37 Creatinine 1.7 mg/dL (0.7-1.3) H 05/05/17 04:37 Estimated GFR 38 05/05/17 04:37 Glucose 113 mg/dL (70-100) H 05/05/17 04:37 Calcium 8.5 mg/dL (8.5-10.4) 05/05/17 04:37 Total Bilirubin 0.7 mg/dL (0.1-1.4) D 05/05/17 04:37 AST 72 IU/L (17-59) H 05/05/17 04:37 ALT 96 IU/L (21-72) H 05/05/17 04:37 Alkaline Phosphatase 307 IU/L (38-126) H 05/05/17 04:37 Troponin I 0.294 ng/mL (0.000-0.034) H 05/04/17 04:42 NT-Pro-B Natriuret Pep 87195 pg/mL (0-450) H 05/05/17 04:37 Total Protein 5.1 g/dL (6.3-8.2) L 05/05/17 04:37 Albumin 2.6 g/dL (3.5-5.0) L 05/05/17 04:37 Chest X-ray Interpretation: infiltrate Visualized and Interpreted EKG results: Yes EKG Interpretation: Positive for: NS ST wave abnormalities, right bundle branch block, T waves inversion Telemetry: sinus rhythm Echocardiogram: pending A/P Assessment: Patient is an 89 y/o male with known diffuse multivessel CAD with recent intervention to the RCA in setting of NQWMI (four stents), but severe residual LM, LAD, and LCX disease with further history of HTN, HLP, COPD, CKD (Cr: 1.9), and congestive heart failure (EF of 45%) with "flu" who presents after a fall due to weakness at home. Mild troponin elevation is noted (query CKD, however, known severe multivessel CAD). At present, no active cardiovascular complaints. Ongoing renal insufficiency (creatinine of 1.7). Discussion with patient and family about options. Plan: Would aggressively treat flu symptoms at present (tamiflu and azithro). The patient has extensive CAD, and would need staged procedure to address the previously noted CAD lesion. Echocardiogram is pending for reassessment of LVEF (known to be suppressed from recent echo to 45%). Would maintain therapy on Plavix given RCA intervention. Would continue therapy on statins for HLP, and maintain annual assessment of LFTs and FLPs. Isosorbide should continue given the noted cardiac lesions. Bystolic to continue for assistance with HTN management. Given underlying renal insufficiency, concerns about exposure to contrast agents. Would not perform MPI testing on this patient with the known CAD (angiography with clear lesion identification) Maintain supplemental oxygen. Would attempt to get the though the acute phase of the flu that is currently noted prior to discussion about further CV procedures.
--- NOTE | 2017-05-05 16:45 | ECHO ---
[email or web address] [address] [address] Main: [phone] Fax: Transthoracic Echocardiogram Name: MEGHANA LOPEZ MR#: [id number] Study Date: 05/05/2017 Study Time: 11:08 AM Date of : 1925 Age: 89 year(s) Height: 170.2 cm (67 in.) Weight: 64.41 kg (142 lb.) BSA: 1.75 m2 Gender: Male Examination: Echo Indication: Flu, COPD, Shortness of breath Image Quality: Contrast: Requested by: Kimmy Obregon BP: 181 mmHg/85 mmHg Heart Rate: Rhythm: Normal sinus rhythm Indication: Flu, COPD, Shortness of breath Procedure Staff Petrography Teacher: Fredy Gonzalez Reading Physician: Konstantin Barrow Requesting Provider: Conclusions: Normal size left ventricle. No LV hypertrophy. Normal global systolic LV function. EF is 55 %. Diastolic dysfunction is present. . There is subtle basilar anterioseptal hypokinesis. The previous exam from 07/08 had apical septal akinesis.. Normal size right ventricle. Normal RV function. The left atrium is mildly dilated. The right atrium is normal in size. Mild mitral valve leaflet calcification is present. Mild aortic cusp calcification is noted. The tricuspid valve is normal in appearance and function. There is pericardial fat. Measurements: Chambers Valvular Assessment AV/MV Valvular Assessment TV/PV Normal Normal Normal Name Value Range Name Value Range Name Value Range Ao Sade (MM): 2.9 cm (2.2 cm-3.7 MV E Vmax: 0.66 m/s ( - ) PV Vmax: 0.64 m/s (0.6 m/s-0.9 cm) MV A Vmax: 1.04 m/s ( - ) m/s) IVSd (2D): 1.2 cm (0.6 cm-1.1 MV E/A: 0.63 ( - ) PV PGmax: 2 mmHg ( - ) cm) LVDd (2D): 4.1 cm (4.2 cm-5.9 cm) LVDs (2D): 2.9 cm (2.1 cm-4 cm) LVPWd (2D): 1.1 cm (0.6 cm-1 cm) Patient: MEGHANA LOPEZ Study Date: 05/05/2017 Page 1 of 2 11:08 AM LVEF (BP): 55 % (>=55 %) Continued Measurements: Valvular Assessment AV/MV Name Value MV E/E' Septal: 18.80 MV E/E' Lateral: 18.30 Findings: Left Ventricle: Normal size left ventricle. No LV hypertrophy. Normal global systolic LV function. EF is 55 %. Diastolic dysfunction is present. . There is subtle basilar anterioseptal hypokinesis. The previous exam from 07/08 had apical septal akinesis.. Right Ventricle: Normal size right ventricle. Normal RV function. Left Atrium: The left atrium is mildly dilated. Right Atrium: The right atrium is normal in size. Mitral Valve: Mild mitral valve leaflet calcification is present. Aortic Valve: Mild aortic cusp calcification is noted. Tricuspid Valve: The tricuspid valve is normal in appearance and function. Pulmonic Valve: Pulmonary valve not well visualized. Aorta: The aorta is normal. Pericardium: No pericardial effusion. There is pericardial fat. (No Signature Object) Patient: MEGHANA LOPEZ Study Date: 05/05/2017 Page 2 of 2 11:08 AM [id number]
--- NOTE | 2017-05-05 16:53 | ASMTCMCOM ---
CM Note CM Note Notes: Spoke with pt and maurice Perry via phone, both are ammenable to SNF, CM will send referral to [facility] rehab as pt has been there in the past. DC Plan: SNF Date Signed: 05/05/2017 04:52 PM Electronically Signed By:Mana Cortez RN
[2017-05-05] MEDS ORDERED: oxyCODONE IR 5 MG TAB PO ONE (20:00)
[2017-05-05] MEDS: MELATONIN 3 MG TAB PO PRN (20:12)
[2017-05-06] MEDS: NEBIVOLOL HCL 5 MG TAB PO SCH (08:48)
[2017-05-06] MEDS: AZITHROMYCIN 250 MG TAB PO SCH (08:48)
[2017-05-06] MEDS: predniSONE 20 MG TAB PO SCH (08:48)
[2017-05-06] MEDS: CLOPIDOGREL BISULFATE 75 MG TAB PO SCH (08:48)
[2017-05-06] MEDS: ATORVASTATIN CALCIUM 40 MG TAB PO SCH (08:48)
[2017-05-06] MEDS: ISOSORBIDE DINITRATE 10 MG TAB PO SCH ×3 (08:48→15:22)
[2017-05-06] MEDS: OSELTAMIVIR 6 MG/ML UDSYR PO SCH (09:33)
--- NOTE | 2017-05-06 09:49 | HOSPPROG ---
Hospitalist Progress Note Assessment/Plan: 89 yo M w/ COPD and CAD, recently discharged after treatment for influenza and COPD exacerbation presents after fall. * gait instability resulting in a fall -CT of head showed nothing acute -working with Physical therapy and Occupational therapy -has significant ecchymosis on both arms, behind the left knee, below the right eye area, scab to the right forehead,bruising to his nose * recent influenza a -continue prednisone, azithromycin and Tamiflu * COPD exacerbation from the above -wears oxygen chronically -xray shows nothing acute *anemia -follow * coronary artery disease with [address] -no chest pain *elevated trops/likely demand ischemia -not c/o pain, echocardiogram pending -appreciate cardiology seeing him *elevated BNP/hx of systolic chf echo shows diastolic heart failure ef 55% *Hyperkalemia -hold oral K -resolved * chronic kidney disease stage 3 -creat 1.5 *Plan: patient will need a SNF, spoke with his daughter Vicky and updated her on the plan of care. He could likely go to rehab tomorrow or Monday. Subjective: Sammy said he is not having much of an appetite today Objective: Vital Signs Temp Pulse Resp BP Pulse Ox 36.6 C 63 21 H 171/70 H 99 05/06/17 07:38 05/06/17 07:38 05/06/17 07:38 05/06/17 07:38 05/06/17 07:38 Laboratory Results 05/05/17 04:37 05/06/17 09:22 05/05/17 05/06/17 05/07/17 05:59 05:59 05:59 Intake Total 50 250 Output Total 250 Balance 50 0 - Physical Exam Constitutional: not in pain, chronically ill appearing Eyes: PERRL Ears, Nose, Mouth, Throat: hearing normal Cardiovascular: regular rate and rhythym Respiratory: no respiratory distress Skin: warm, other (Multiple areas of ecchymosis as described on previous progress notes) Musculoskeletal: generalized weakness Neurologic: AAOx3 Psychiatric: interacting appropriately, not anxious ICD10 Worksheet Patient Problems: Problems Problem Status Onset Shortness of breath Acute Hypoxemia Acute COPD (chronic obstructive pulmonary disease) Acute Chronic Disease Mgmt/Transitional Care Acute Pneumonia Acute Cardiac arrest Acute Acute respiratory failure Acute Urinary tract infection Acute Bladder cancer Acute Chronic obstructive pulmonary disease with acute exacerbation Acute Weakness Acute Facial contusion Acute Head injury Acute Facial abrasion Acute
--- NOTE | 2017-05-06 12:29 | PDCARPN ---
Cardiology Progress Note Chief Complaint: Patient reports shortness of breath with any exertion. Assessment/Plan: Assessment: 89-year-old male with history of CAD status post PCI with KRISTIN implantation of RCA in 06/2016 in setting of NQWMI. Noted at time of catheterization residual CAD of left main 70%, lad 85% and then 70% , in circumflex 60% stenosis. Patient also noted to have CHF, COPD/asbestosis (chronic oxygen usage), hypertension, hyperlipidemia, in chronic kidney disease (creatinine 1.5-1.9 baseline). Readmitted on May 03, for fall (mechanical) hitting his head and nose, status post discharge for influenza and COPD exacerbation. CT of head done on day admission showed no intracranial sequelae. Patient reporting no significant change from baseline shortness of breath. Reporting no episodes of chest pain or palpitations. Electrocardiogram done on admission showing sinus rhythm , right bundle branch block and left posterior fascicular block , Q -waves noted in inferior leads, borderline ST depression in lateral leads. Patient noted with elevated troponin peaking at 0.294, [place] [address]. Creatinine on admission elevated at 2.0 echocardiogram done on 05/04/2017 showing no LVH, EF 55%, diastolic dysfunction present, sotalol basilar anterior septal hypokinesis , in compared to previous examination , had apical septal akinesis.. Normal RV size and RV function, LA mildly dilated, RA normal size, calcification noted in both mitral valve leaflets, an aortic valve cusp. Today, patient reporting no episodes of chest pain or pressure. No change in respiratory shortness of breath. Laboratory studies showing improvement with renal function , creatinine down to 1.5. Repeated troponin done today showing downward decline at 0.078. Continuous cardiac monitoring showing sinus rhythm, occasional PAC, occasional PVC. No other significant arrhythmias or pauses noted. Patient maintaining SpO2 greater 90% on OxyMask. Plan: 1. Gait instability resulting in fall: CT negative for acute findings. Patient continue work with PT and OT. 2. Recent influenza: Patient has been continued on prednisone, erythromycin, and Tamiflu. 3. CAD: Previous PCI of the RCA less than a year ago, CAD as mentioned above. Patient reporting no chest pain or symptoms suggesting of ischemia. Noted mild elevated troponin on admission, probably due to demand ischemia from recent influenza and COPD exacerbation. Troponin trending downward, today at 0.078. Echocardiogram shows improvement in ejection fraction previous study. Medical management at this time anti-platelet of clopidogrel. Continue on beta-karo Bystolic. Remain on long-acting nitrate of isosorbide. Consideration of further CV procedures once patient has recovered from influenza. 4. History of systolic CHF: Patient noted to have elevated BNP on admission, echocardiogram shows EF has normalized to 55%. Currently off of diuretic therapy due to renal insufficiency. Consider restarting home torsemide in the next day or 2 , with renal function improving. 5. Renal insufficiency: Continue to improve, creatinine 1.5 today. 6. COPD: Continue maintaining supplemental oxygen. 05/06/17 12:21 Subjective: Denies of any chest pressure or pain. Reports no palpitations, lightheadedness , near-syncope, or syncopal events. Reviewed/Discussed With: hospitalist, other (Dr Kirk) Objective: Vital Signs (8 Hrs) Temp Pulse Resp BP Pulse Ox 05/06/17 11:14 36.6 C 58 L 16 146/64 H 98 05/06/17 07:38 36.6 C 63 21 H 171/70 H 99 Intake/Output (24 Hrs) 05/05/17 05/06/17 05/07/17 05:59 05:59 05:59 Intake Total 50 250 Output Total 250 Balance 50 0 Intake: Oral (ml) 50 250 Output: Urine (ml) 250 Urinal 250 Other: Intake Quantity Yes Yes Sufficient Result Diagrams: 05/05/17 04:37 05/06/17 09:22 Cardiac Labs: Cardiac Lab Results (72 Hrs) 05/06/17 09:22 Troponin I 0.078 H - Physical Exam Constitutional: no apparent distress, other (Elderly male) Ears, Nose, Mouth, Throat: moist mucous membranes Cardiovascular: regular rate and rhythm, no murmurs, no rubs, jugular vein distention (5-6 cm above sternal), No systolic murmur, No carotid bruit Peripheral Pulses: 1+: dorsalis-pedis (R), dorsalis-pedis (L), 2+: carotid (R), carotid (L) Respiratory: other (Diminished in bases bilateral, no expiratory wheezes, no rales noted) Gastrointestinal: normoactive bowel sounds Skin: warm, no edema, other (Multiple abrasion in ecchymoses for recent fall to face, ecchymosis on both arms.) Neurologic: AAOx3 Psychiatric: cooperative, interactive, following commands, not anxious ICD10 Worksheet Patient Problems: Problems Problem Status Onset Shortness of breath Acute Hypoxemia Acute COPD (chronic obstructive pulmonary disease) Acute Chronic Disease Mgmt/Transitional Care Acute Pneumonia Acute Cardiac arrest Acute Acute respiratory failure Acute Urinary tract infection Acute Bladder cancer Acute Chronic obstructive pulmonary disease with acute exacerbation Acute Weakness Acute Facial contusion Acute Head injury Acute Facial abrasion Acute
[2017-05-06] MEDS: ACETAMINOPHEN 325 MG TAB PO PRN (21:11)
[2017-05-06] MEDS: MELATONIN 3 MG TAB PO PRN (21:11)
[2017-05-07] MEDS: predniSONE 20 MG TAB PO SCH (08:33)
[2017-05-07] MEDS: ISOSORBIDE DINITRATE 10 MG TAB PO SCH ×3 (08:34→15:18)
[2017-05-07] MEDS: CLOPIDOGREL BISULFATE 75 MG TAB PO SCH (08:34)
[2017-05-07] MEDS: AZITHROMYCIN 250 MG TAB PO SCH (08:34)
[2017-05-07] MEDS: NEBIVOLOL HCL 5 MG TAB PO SCH (08:34)
[2017-05-07] MEDS: ATORVASTATIN CALCIUM 40 MG TAB PO SCH (08:34)
[2017-05-07] MEDS: OSELTAMIVIR 6 MG/ML UDSYR PO SCH (08:35)
[2017-05-07] MEDS ORDERED: TORSEMIDE 20 MG TAB PO SCH (09:00)
[2017-05-07 11:29] VITALS: BP 148/60; PULSE 67; RESP 24; TEMP 97.7; O2SAT 96
--- NOTE | 2017-05-07 13:55 | HOSPPROG ---
Hospitalist Progress Note Assessment/Plan: 89 yo M w/ COPD and CAD, recently discharged after treatment for influenza and COPD exacerbation presents after fall. * gait instability resulting in a fall -CT of head showed nothing acute -working with Physical therapy and Occupational therapy -has significant ecchymosis on both arms, behind the left knee, below the right eye area, scab to the right forehead,bruising to his nose * recent influenza a -continue prednisone, azithromycin and Tamiflu * COPD exacerbation from the above -wears oxygen chronically -xray shows nothing acute *anemia -follow * coronary artery disease with [address] -no chest pain *elevated trops/likely demand ischemia -not c/o pain, echocardiogram pending -appreciate cardiology seeing him *elevated BNP/hx of systolic chf ef 55% resumed diuretic *Hyperkalemia -resume oral K in the setting of resuming his diuretic -resolved * chronic kidney disease stage 3 -creat 1.5 *Plan: [facility] Subjective: Sammy is fine, ready for dc Objective: Vital Signs Temp Pulse Resp BP Pulse Ox 36.5 C 67 24 H 148/60 H 96 05/07/17 11:25 05/07/17 11:25 05/07/17 11:25 05/07/17 11:25 05/07/17 11:25 Laboratory Results 05/05/17 04:37 05/06/17 09:22 05/06/17 05/07/17 05/08/17 05:59 05:59 05:59 Intake Total 250 Output Total 250 350 Balance 0 -350 - Physical Exam Constitutional: not in pain, chronically ill appearing Eyes: PERRL Ears, Nose, Mouth, Throat: hearing normal Cardiovascular: regular rate and rhythym Respiratory: no respiratory distress Skin: warm, other (significant ecchymosis under right eye area now extending into his cheek area, both arms, behind left knee area) Musculoskeletal: generalized weakness Neurologic: AAOx3 Psychiatric: interacting appropriately, not anxious ICD10 Worksheet Patient Problems: Problems Problem Status Onset Facial abrasion Acute Facial contusion Acute Head injury Acute Weakness Acute Acute respiratory failure Acute Bladder cancer Acute COPD (chronic obstructive pulmonary disease) Acute Cardiac arrest Acute Chronic Disease Mgmt/Transitional Care Acute Chronic obstructive pulmonary disease with acute exacerbation Acute Hypoxemia Acute Pneumonia Acute Shortness of breath Acute Urinary tract infection Acute
--- NOTE | 2017-05-07 14:00 | PDIAF ---
- Diagnosis Diagnosis: gait instability, recent influenza, ZUHAIR, CHF Code Status: Full Code - Medication Management Discharge Medications: Medications to Continue on Transfer Albuterol [Proventil Inhaler HFA (*)] 1 - 2 puffs IH DAILY PRN 07/03/16 [Last Taken 04/30/17 13:00] Nebivolol HCl [Bystolic] 10 mg PO DAILY 07/03/16 [Last Taken 05/03/17] Isosorbide Dinitrate [Isosorbide Dinitrate 10 mg (*)] 10 mg PO TIDNITRATE #0 tab 07/08/16 [Last Taken 05/03/17 13:00] Nitroglycerin [Nitrostat 0.4 mg (*)] 0.4 mg SL PRN PRN #0 btl 07/08/16 [Last Taken Unknown] Atorvastatin Calcium [Lipitor 40 mg (*)] 40 mg PO DAILY 01/23/17 [Last Taken 02/08] Potassium Cl [Klor-Con 20 meq (*)] 20 meq PO DAILY 01/23/17 [Last Taken 04/30/17 ] Torsemide [Demadex] 40 mg PO DAILY 01/23/17 [Last Taken 04/30/17] Aspirin EC [Aspirin EC 81 mg (*)] 81 mg PO DAILY 04/30/17 [Last Taken 05/03/17] Clopidogrel Bisulfate [Plavix (*)] 75 mg PO DAILY 04/30/17 [Last Taken 05/03/17] Melatonin [Melatonin 3 MG (*)] 3 mg PO HS PRN 04/30/17 [Last Taken 05/02/17] Acetaminophen [Tylenol 325mg (*)] 650 mg PO Q4HRS PRN tab 05/07/17 [Last Taken Unknown] Azithromycin [Zithromax] 250 mg PO DAILY tab 05/07/17 [Last Taken Unknown] predniSONE 20 mg PO DAILY #4 tablet 05/07/17 [Last Taken 05/03/17] Discharge Medications: Refer to the Discharge Home Medication list for PRN reason. - Orders Services needed: Physical Therapy, Occupational Therapy Isolation Type: Droplet Isolation Diet Recommendation: no restrictions on diet Diet Texture: Regular Texture Diet Additional: Patient was recently restarted on his diuretic and potassium. They were held during his hospital stay he due to renal insufficiency and hyperkalemia. Please monitor electrolytes every 3 days till stabilizes. Follow up with Cardiology in 1-2 weeks. He has received complete treatment for the influenza - Labs/Radiology BMP Date: 05/09/17 (every 3 days tills stable) - Follow Up Care Current Providers and Referrals: David Dalal MD [Primary Care Provider] -
--- NOTE | 2017-05-07 15:15 | ASMTCMCOM ---
CM Note CM Note Notes: Patient medically cleared for discharge back to [facility] . Orders via allscripts. cable supervisor time at 3:30 pm via wheel chair. RN to call report. Family hager per hospitalist. CM available should other needs arise. Date Signed: 05/07/2017 03:14 PM Electronically Signed By:Cindy Miller RN
--- NOTE | 2017-05-07 16:59 | ASDISCHSUM ---
Discharge Information Plan Status:SNF Medically Cleared to Leave:05/06/2017 Discharge Date:05/07/2017 03:40 PM CM D/C Disposition: ADT D/C Disposition:Rehab [facility] Care Projected Discharge Date:05/07/2017 11:00 AM Transportation at D/C:Wheelchair Van Discharge Delay Reason: Follow-Up Date:05/07/2017 11:00 AM Discharge Slot: Final Diagnosis: Placement Information Referral Type:*Fci/SNF Referral ID:[id number] Provider Name:[facility] Address 1:[address] Address 2: City:[place] Selection Factors: State:[place] Patient Contact Information Contact Name:GUDELIA Relationship: Address: Home Phone: Work Phone: City: [facility] Phone: [facility] Code: Email: Financial Information Financial Class: Primary Plan Desc:MEDICARE INPATIENT Primary Plan Number:[id number] Secondary Plan Desc:[facility] Secondary Plan Number:[id number] Assessment Information [facility] CM Progress Note CM Note CM Note Notes: Pt was discharged yesterday afternoon. He was in his kitchen making dinner, felt weak and fell. Pt is going to be managed by [facility] ([place] [phone]). At time of dc, PCM was in the process of establishing him, but will take about a week, so homecare was set up in the interim with [facility]. As of now OT recommending SNF, CM waiting for PT recommendation DC Plan: TBD Date Signed: 05/04/2017 02:28 PM Electronically Signed By:Mana Cortez RN [facility] CM Progress Note CM Note CM Note Notes: Spoke with pt and dtr Vicky via phone, both are ammenable to [facility], CM will send referral to [facility] as pt has been there in the past. DC Plan: [facility] Date Signed: 05/05/2017 04:52 PM Electronically Signed By:Mana Cortez RN [facility] CM Progress Note CM Note CM Note Notes: Patient medically cleared for discharge back to [facility] . Orders via allscripts. supervisor kennel time at 3:30 pm via wheel chair. RN to call report. Family hager per hospitalist. CM available should other needs arise. Date Signed: 05/07/2017 03:14 PM Electronically Signed By:Cindy Miller RN Intervention Information Intervention Type:*BAKER-Signed Date of Service:05/04/2017 09:46 AM Patient Type:Observation Staff Member:Joanne Gil Hours: Discipline: Severity: Comment: Intervention Type:*IM-Signed Date of Service:05/07/2017 02:30 PM Patient Type:Inpatient Staff Member:ROSITA Miller Margaret Hours: Discipline: Severity: Comment:
--- NOTE | 2017-05-07 18:42 | GDS ---
[f rep st] DISCHARGE SUMMARY DISCHARGE DIAGNOSES: 1. Gait instability and fall. 2. Recent influenza A. 3. Chronic obstructive pulmonary disease exacerbation. 4. Anemia. 5. Coronary artery disease with 4 stents placed. 6. Elevated troponins, likely demand ischemia. 7. Elevated BNP with a history of systolic heart failure. 8. Hyperkalemia. 9. Chronic kidney disease, stage 3. HISTORY OF PRESENT ILLNESS: Briefly, the patient is an 89-year-old male who has COPD and coronary artery disease. He was recently discharged after getting treatment for influenza, COPD exacerbation. When he returned home, he fell and sustained significant bruising on his face and arms. He was admitted for further care. HOSPITAL COURSE BY PROBLEM: 1. Gait instability. This has resulted in a significant fall. He had a CT scan of his head which showed nothing acute. He has significant ecchymosis on his arms and face area. 2. Recent influenza A. He has received full treatment with Tamiflu. Also was given azithromycin. Will be weaned off prednisone. 3. COPD exacerbation. He wears oxygen chronically. His x-ray showed nothing acute. 4. Anemia, stable. 5. Coronary artery disease with [address] He has no chest pain. 6. Elevated troponins. This is likely demand ischemia. He was seen and evaluated by Cardiology. 7. Elevated BNP with a history of systolic heart failure. His recent echo showed an EF of 55%. His diuretic has been resumed. 8. Hyperkalemia. Resolved. 9. Chronic kidney disease. Most recent creatinine is 1.5. DISCHARGE CONDITION: Stable. Blood pressure is 148/60, heart rate is 67, respiratory rate 24, O2 sats on 4 L are 96%, temperature 36.5 Celsius. MEDICATIONS AT DISCHARGE: Please see the EMR. DISCHARGE INSTRUCTIONS: 1. He will go to rehab for further care. 2. Recommending that they wean off his prednisone over the next several days. 3. Follow up with Marcin Calvo. 4. To follow up with Cardiology. 5. To check chemistries every 3 days to make sure that his potassium and kidney function stay stable. Greater than 30 minutes discharging and coordinating care. /[id number]/MODL MTDD
== END 2017-05-07 15:40 | DRG 605 ==
LOC: F3E 05-04 00:05 → OBSVTOIN 05-04 15:32
PROVIDERS: ADMIT Student in an Organized Health Care Education/Training Program; ATTEND Internal Medicine Pulmonary Disease
DX: S00.81XA Abrasion of other part of head, initial encounter (principal); S00.31XA Abrasion of nose, initial encounter; W18.39XA Other fall on same level, initial encounter; Y92.010 Kitchen of single-family (private) house as the place of occurrence of the external cause; Y93.G1 Activity, food preparation and clean up; Y99.8 Other external cause status; R53.1 Weakness; J10.1 Influenza due to other identified influenza virus with other respiratory manifestations; J61 Pneumoconiosis due to asbestos and other mineral fibers; Z99.81 Dependence on supplemental oxygen; I25.10 Atherosclerotic heart disease of native coronary artery without angina pectoris; Z95.5 Presence of coronary angioplasty implant and graft; I24.8 Other forms of acute ischemic heart disease; I50.22 Chronic systolic (congestive) heart failure; D64.9 Anemia, unspecified; E87.5 Hyperkalemia; N18.3 Chronic kidney disease, stage 3 (moderate); Z85.51 Personal history of malignant neoplasm of bladder
CPT/HCPCS: 92507-GN; 92523-GN; 97110-GP; 97116-GP; 97162-GP; 97166-GO; 97535-GO; G0378; G8978-GP-CL; G8979-GP-CJ; G8987-GO-CJ; G8988-GO-CI; G9168-GO-CI; G9169-GN-CI; J7512; J7613